=== PATIENT | female | born 1960 | race African-American/Black ===

== ENCOUNTER 2017-01-14 05:04 | Inpatient (IN) ==
[2017-01-13 12:00] LABS: INR 0.9; PT Patient Result 9.4 SECS; Partial Thromboplastin Time 25.2 SECS (0-40)
[2017-01-13 12:08] LABS: Apearance,Urine CLOUDY (Clear); Bacteria,Urine Few /HPF (Few); Bilirubin,Urine Negative (Negative); Blood, Urine Small mg/dL (Negative); Glucose,Urine (UA) >=500 mg/dL (Negative); Ketones,Urine Negative (Negative); Nitrite,Urine Negative (Negative); Protein,Urine 30 MG/DL; Squamous Epithelial Cell,Urine Occasional /HPF (0-10); Urine Color Yellow (Yellow); Urine Specific Gravity 1.017 (1.001-1.035); WBC,Urine 531 /HPF (0-6)
[~2017-01-14 05:04] MED LIST: CEFUROXIME INJ 1,500 MG in SYRINGE 1 EACH IV ONE; SODIUM CHLORIDE 0.9% 1,000 ML IV PRN
[2017-01-14] MEDS ORDERED: PAPAVERINE 60 MG/2 ML VIAL ONE (05:28)
[2017-01-14] MEDS ORDERED: TISSUE ADHESIVE 1 EACH APPLICATOR TOP ONE ×2 (05:28→09:59)
[2017-01-14] MEDS ORDERED: VANCOMYCIN 1,000 MG VIAL ONE (05:29)
[2017-01-14] MEDS ORDERED: TRANEXAMIC ACID 1,000 MG/10 ML VIAL IV ONE (06:11)
[2017-01-14] MEDS ORDERED: CEFUROXIME 1,500 MG VIAL ONE (06:40)
[2017-01-14 07:54] LABS: ABG HCO3 22.8 MMOL/L (20-26); ABG Oxygen Saturation 99.3 % (95-100); ABG PCO2 31.3 MM HG (35-48); ABG PO2 354.9 MM HG (80-95); ABG TCO2 23.7 MMOL/L (23-27); Glucose Heart Surgery 181 MG/DL (74-106); Hemoglobin Heart Surgery 12.2 G/DL (12.0-16.0); Ionized Calcium Arterial 1.18 MMOL/L (1.21-1.46); PCO2 Patient Temp Arterial 31.3 MMHG; PO2 Patient Temp Arterial 354.9 MM HG; Patient Temperature 37 CELCIUS; Potassium Heart/CVR 3.7 MMOL/L (3.5-5.1); Sodium Heart/CVR 138 MMOL/L (135-145)
[2017-01-14 08:21] LABS: Apearance,Urine CLOUDY (Clear); Bacteria,Urine Many /HPF (Few); Bilirubin,Urine Negative (Negative); Blood, Urine Small mg/dL (Negative); Glucose,Urine (UA) >=500 mg/dL (Negative); Ketones,Urine Negative (Negative); Nitrite,Urine Negative (Negative); Protein,Urine 100 MG/DL; RBC,Urine 10 /HPF (0-4); Urine Color Yellow (Yellow); Urine Specific Gravity 1.013 (1.001-1.035); WBC,Urine 1431 /HPF (0-6)
[2017-01-14 09:26] LABS: Hemoglobin Heart Surgery 6.8 G/DL (12.0-16.0); PCO2 Patient Temp Venous 30.1 MM HG; PH Patient Temp Venous 7.521; PO2 Patient Temp Venous 29.8 MM HG; Potassium Heart/CVR 4.6 MMOL/L (3.5-5.1); VBG Base Excess 1.1 MEQ/L (0-4); VBG HCO3 24.9 MEQ/L (24-28); VBG Oxygen Saturation 81.7 %; VBG PCO2 35.8 MMHG (41-51); VBG PH 7.461; VBG PO2 39.6 MMHG (17-40)
[2017-01-14] MEDS ORDERED: CALCIUM CHLORIDE 1,000 MG/10 ML VIAL IV ONE (09:31)
[2017-01-14] MEDS ORDERED: PHENYLEPHRINE DRIP 20 MG/250 ML PREMIX IV ONE ×2 (09:31→11:15)
[2017-01-14] MEDS ORDERED: VECURONIUM 10 MG VIAL IV ONE (09:31)
[2017-01-14] MEDS ORDERED: HEPARIN/NACL 0.9% 2 UNITS/ML 500 ML IV ONE (09:31)
[2017-01-14] MEDS ORDERED: NITROGLYCERIN DRIP 50 MG/250 ML BOTTLE IV ONE (09:32)
[2017-01-14] MEDS ORDERED: INSULIN REGULAR 100 UNIT/ML ONE (09:34)
[2017-01-14 09:48] LABS: Hematocrit Heart Surgery 20.1 PERCENT (37-47); PCO2 Patient Temp Venous 25.3 MM HG; PH Patient Temp Venous 7.552; Potassium Heart/CVR 3.7 MMOL/L (3.5-5.1); VBG Base Excess 0.6 MEQ/L (0-4); VBG HCO3 24.9 MEQ/L (24-28); VBG Oxygen Saturation 90.8 %; VBG PCO2 33.8 MMHG (41-51); VBG PH 7.462; VBG PO2 52.3 MMHG (17-40)
[2017-01-14 09:49] LABS: Hemoglobin Heart Surgery 6.4 G/DL (12.0-16.0)
[2017-01-14] MEDS ORDERED: ALBUMIN 5% 12.5 GM/250 ML VIAL IV ONE ×3 (10:11)
[2017-01-14] MEDS ORDERED: PHENYLEPHRINE DRIP 40 MG/250 ML PREMIX IV ONE (10:12)
[2017-01-14 10:24] LABS: Hemoglobin Heart Surgery 6.1 G/DL (12.0-16.0); PCO2 Patient Temp Venous 30.5 MM HG; PH Patient Temp Venous 7.517; PO2 Patient Temp Venous 30.6 MM HG; Potassium Heart/CVR 4.1 MMOL/L (3.5-5.1); VBG Base Excess 1.1 MEQ/L (0-4); VBG HCO3 25.1 MEQ/L (24-28); VBG Oxygen Saturation 83.7 %; VBG PCO2 36.3 MMHG (41-51); VBG PH 7.457; VBG PO2 40.6 MMHG (17-40)
[2017-01-14 10:44] LABS: Hemoglobin Heart Surgery 8.5 G/DL (12.0-16.0); PCO2 Patient Temp Venous 38.9 MM HG; PH Patient Temp Venous 7.438; PO2 Patient Temp Venous 34.8 MM HG; Potassium Heart/CVR 4.5 MMOL/L (3.5-5.1); VBG Base Excess 1.4 MEQ/L (0-4); VBG HCO3 25.9 MEQ/L (24-28); VBG Oxygen Saturation 78.2 %; VBG PCO2 40.6 MMHG (41-51); VBG PH 7.423; VBG PO2 37.4 MMHG (17-40)
[2017-01-14] MEDS ORDERED: DEXTROSE 5% KCL 20 MEQ 40 MEQ/2,000 ML BAG IV ONE (11:15)
[2017-01-14] MEDS ORDERED: ALBUMIN 25% 25 GM/100 ML VIAL IV ONE (11:16)
[2017-01-14] MEDS ORDERED: SODIUM BICARBONATE 50 MEQ/50 ML SYRINGE IV ONE (11:16)
[2017-01-14] MEDS ORDERED: MAGNESIUM SULFATE 1 GM/2 ML VIAL ONE (11:16)
[2017-01-14] MEDS ORDERED: HEPARIN 10,000 UNIT/10 ML VIAL ONE (11:16)
[2017-01-14] MEDS ORDERED: methylPREDNISolone SOD SUC 1,000 MG/8 ML VIAL ONE (11:16)
[2017-01-14] MEDS ORDERED: PROTAMINE SULFATE 250 MG/25 ML VIAL IV ONE (11:16)
[2017-01-14] MEDS ORDERED: FUROSEMIDE 20 MG/2 ML VIAL ONE (11:16)
[2017-01-14] MEDS ORDERED: MANNITOL 12.5 GM/50 ML VIAL IV ONE (11:16)
[2017-01-14] MEDS ORDERED: THROMBIN TOPICAL (RECOMBINANT) 5,000 UNIT VIAL TOP ONE (11:23)
[2017-01-14 11:27] LABS: ABG Base Excess -0.8 MMOL/L (-2.5-2.5); ABG HCO3 23.1 MMOL/L (20-26); ABG Oxygen Saturation 98.6 % (95-100); ABG PCO2 35.4 MM HG (35-48); ABG PH 7.433 (7.35-7.45); ABG PO2 259.2 MM HG (80-95); ABG TCO2 24.2 MMOL/L (23-27); Glucose Heart Surgery 265 MG/DL (74-106); Hemoglobin Heart Surgery 9.9 G/DL (12.0-16.0); Ionized Calcium Arterial 1.25 MMOL/L (1.21-1.46); PCO2 Patient Temp Arterial 35.4 MMHG; PH Patient Temp Arterial 7.433; PO2 Patient Temp Arterial 259.2 MM HG; Patient Temperature 37 CELCIUS; Potassium Heart/CVR 3.9 MMOL/L (3.5-5.1); Sodium Heart/CVR 130 MMOL/L (135-145)
[2017-01-14] MEDS ORDERED: MAGNESIUM SULF RIDER 4 GM in PREMIX 1 EACH IV PRN (12:19)
[2017-01-14] MEDS ORDERED: INSULIN REGULAR 100 UNIT/ML IV PRN (12:19)
[2017-01-14] MEDS ORDERED: ACETAMINOPHEN 650 MG SUPP RECTAL PRN (12:19)
[2017-01-14] MEDS ORDERED: MORPHINE 10 MG/1 ML VIAL IV PRN (12:19)
[2017-01-14] MEDS ORDERED: POTASSIUM CHLORIDE RIDER 20 MEQ in PREMIX 1 EACH IV PRN (12:19)
[2017-01-14] MEDS ORDERED: CHLORHEXIDINE 4% SOLN 118 ML BOTTLE TOP PRN (12:19)
[2017-01-14] MEDS ORDERED: DEXTROSE 50% 25 GM/50 ML VIAL IV PRN ×2 (12:19)
[2017-01-14] MEDS ORDERED: MIDAZOLAM 2 MG/2 ML VIAL IV PRN (12:19)
[2017-01-14] MEDS ORDERED: SODIUM CHLORIDE 0.9% 250 ML IV PRN (12:19)
[2017-01-14] MEDS ORDERED: POTASSIUM CHLORIDE RIDER 10 MEQ in PREMIX 1 EACH IV PRN (12:19)
[2017-01-14] MEDS ORDERED: CALCIUM CHLORIDE 1,000 MG/10 ML SYRINGE IV PRN (12:19)
[2017-01-14] MEDS ORDERED: ONDANSETRON 4 MG/2 ML VIAL IV PRN (12:19)
[2017-01-14] MEDS ORDERED: MAGNESIUM SULF RIDER 2 GM in PREMIX 1 EACH IV PRN (12:19)
[2017-01-14] MEDS ORDERED: SODIUM CHLORIDE 0.45% 1,000 ML IV SCH (12:30)
[2017-01-14] MEDS ORDERED: INSULIN REGULAR DRIP 100 ML IV SCH (12:30)
[2017-01-14] MEDS: ALBUMIN 5% 12.5 GM in PREMIX 1 EACH IV PRN ×5 (12:30→16:31)
[2017-01-14 13:09] LABS: ABG Base Excess 0.4 MMOL/L (-2.5-2.5); ABG HCO3 24.1 MMOL/L (20-26); ABG Oxygen Saturation 97.1 % (95-100); ABG PCO2 35.2 MM HG (35-48); ABG PH 7.453 (7.35-7.45); ABG PO2 97.1 MM HG (80-95); ABG TCO2 25.2 MMOL/L (23-27); Basophils % 0.4 % (0.0-0.8); Eosinophils % 0.2 % (0.00-10.9); Glucose Heart Surgery 182 MG/DL (74-106); Hematocrit 29.1 VOL% (35.7-47.0); Hemoglobin 10.1 GM/DL (12.0-16.0); Hemoglobin Heart Surgery 10.6 G/DL (12.0-16.0); Immature Granulocytes % 0.4 %; Immature Granulocytes Absolute 0.04 #; Lymphocytes % 9.8 % (21.3-54.2); Mean Corpuscular HGB Conc 34.7 GM/DL (32-36); Mean Corpuscular Hemoglobin 29 PG (27-34); Mean Platelet Volume 10.9 FL (9.6-12.0); Monocytes # 0.3 10*3/uL (0.11-0.8); Monocytes % 3.4 % (1.7-12.7); Neutrophils # 8.6 10*3/uL (1.4-7.4); Neutrophils % 85.8 % (38.7-73.9); Platelet Count 103 T/CUMM (130-400); Potassium Heart/CVR 3.6 MMOL/L (3.5-5.1); Red Blood Count 3.55 MC/CUMM (3.8-5.5); Red Cell Distribution Width 13.6 % (9.3-17.3)
[2017-01-14 13:17] LABS: INR 1.1; PT Patient Result 11.1 SECS
[2017-01-14] MEDS ORDERED: LACTATED RINGERS 1,000 ML IV ONE (13:22)
[2017-01-14] MEDS ORDERED: SODIUM CHLORIDE 0.9% 250 ML IV ONE (13:22)
[2017-01-14] MEDS ORDERED: SODIUM CHLORIDE 0.9% 100 ML IV ONE (13:22)
[2017-01-14] MEDS ORDERED: MIDAZOLAM 10 MG/2 ML VIAL ONE (13:22)
[2017-01-14] MEDS ORDERED: ETOMIDATE 20 MG/10 ML VIAL IV ONE (13:22)
[2017-01-14] MEDS ORDERED: SODIUM CHLORIDE 0.9% 1,000 ML IV ONE (13:22)
[2017-01-14] MEDS: SODIUM CHLORIDE 0.45% 1,000 ML IV SCH (13:29)
[2017-01-14 13:30] LABS: Lactic Acid 2.5 MMOL/L (0.4-2.0)
[2017-01-14 14:22] LABS: Calcium 8.1 MG/DL (8.5-10.1); Magnesium 2.5 MG/DL (1.8-2.4); Osmolality,Calculated 281.5 MOS/KG (273-304); Potassium 3.8 MMOL/L (3.5-5.1)
[2017-01-14] MEDS: MORPHINE 2 MG/1 ML SYRINGE IV PRN ×2 (15:32→19:24)
[2017-01-14 17:19] LABS: ABG Base Excess -0.8 MMOL/L (-2.5-2.5); ABG HCO3 25.1 MMOL/L (20-26); ABG Oxygen Saturation 98.3 % (95-100); ABG PH 7.336 (7.35-7.45); ABG PO2 173.8 MM HG (80-95); ABG TCO2 26.6 MMOL/L (23-27); Glucose Heart Surgery 80 MG/DL (74-106); Hemoglobin Heart Surgery 7.3 G/DL (12.0-16.0); Potassium Heart/CVR 4.4 MMOL/L (3.5-5.1)
[2017-01-14 17:53] LABS: Lymphocytes 7 % (20-55); Platelet Estimate Decreased; Polychromasia Few; Segmented Neutrophils 91 % (50-85); Total Cells Counted 100
[2017-01-14] MEDS: PHENYLEPHRINE DRIP 40 MG/250 ML PREMIX IV SCH (20:04)
[2017-01-14] MEDS ORDERED: DOBUTamine 500 MG/250 ML PREMIX IV ONE (20:25)
[2017-01-14] MEDS: DOBUTamine 500 MG/250 ML PREMIX IV SCH (20:34)
[2017-01-14 20:53] LABS: ABG Base Excess -2.9 MMOL/L (-2.5-2.5); ABG HCO3 20.3 MMOL/L (20-26); ABG Oxygen Saturation 98.7 % (95-100); ABG PCO2 30.7 MM HG (35-48); ABG PH 7.439 (7.35-7.45); ABG PO2 179.7 MM HG (80-95); ABG TCO2 21.3 MMOL/L (23-27); Glucose Heart Surgery 135 MG/DL (74-106); Hemoglobin Heart Surgery 11.8 G/DL (12.0-16.0); Potassium Heart/CVR 4.5 MMOL/L (3.5-5.1)
[2017-01-14] MEDS: CEFUROXIME INJ 1,500 MG in SYRINGE 1 EACH IV SCH (21:34)
[2017-01-14] MEDS: CHLORHEXIDINE 0.12% ORAL RINSE 60 ML BOTTLE SWISH/SPIT SCH (21:38)
[2017-01-15 00:07] LABS: ABG Base Excess -3.8 MMOL/L (-2.5-2.5); ABG HCO3 21.6 MMOL/L (20-26); ABG Oxygen Saturation 98.3 % (95-100); ABG PCO2 40.5 MM HG (35-48); ABG PH 7.345 (7.35-7.45); ABG TCO2 22.9 MMOL/L (23-27); Glucose Heart Surgery 146 MG/DL (74-106); Hemoglobin Heart Surgery 10.2 G/DL (12.0-16.0)
[2017-01-15] MEDS: SODIUM CHLORIDE 0.45% 1,000 ML IV SCH (01:37)
[2017-01-15 03:41] LABS: ABG Base Excess -2.1 MMOL/L (-2.5-2.5); ABG HCO3 23.6 MMOL/L (20-26); ABG Oxygen Saturation 98.3 % (95-100); ABG PH 7.338 (7.35-7.45); ABG PO2 165.9 MM HG (80-95); Glucose Heart Surgery 131 MG/DL (74-106); Hemoglobin Heart Surgery 7.5 G/DL (12.0-16.0)
[2017-01-15 03:54] LABS: Basophils % 0.1 % (0.0-0.8); Hematocrit 20.3 VOL% (35.7-47.0); Immature Granulocytes % 0.2 %; Immature Granulocytes Absolute 0.03 #; Lymphocytes % 7.7 % (21.3-54.2); Mean Corpuscular Hemoglobin 29 PG (27-34); Mean Corpuscular Volume 83.5 FL (87-102); Mean Platelet Volume 11.2 FL (9.6-12.0); Monocytes # 0.7 10*3/uL (0.11-0.8); Monocytes % 5.6 % (1.7-12.7); Neutrophils # 11.2 10*3/uL (1.4-7.4); Neutrophils % 86.4 % (38.7-73.9); Platelet Count 111 T/CUMM (130-400); Red Blood Count 2.43 MC/CUMM (3.8-5.5); Red Cell Distribution Width 14.1 % (9.3-17.3)
[2017-01-15 04:08] LABS: Calcium 7.5 MG/DL (8.5-10.1); Magnesium 2.1 MG/DL (1.8-2.4); Osmolality,Calculated 282.3 MOS/KG (273-304)
[2017-01-15 04:13] LABS: Hemoglobin 7.1 GM/DL (12.0-16.0)
[2017-01-15 05:13] LABS: Band Neutrophils 3 % (0-10); Hypochromasia 1+; Lymphocytes 3 % (20-55); Platelet Estimate Decreased; Segmented Neutrophils 90 % (50-85); Total Cells Counted 100
[2017-01-15 05:14] LABS: Giant Platelets Few; Ovalocytes Slight
[2017-01-15] MEDS ORDERED: KETOROLAC 30 MG/1 ML VIAL IV ONE (05:50)
[2017-01-15] MEDS ORDERED: CALCIUM GLUCONATE 1,000 MG in SODIUM CHLORIDE 0.9% 100 ML IV ONE (06:47)
[2017-01-15] MEDS: ASPIRIN EC 325 MG TABLET PO SCH (08:46)
[2017-01-15] MEDS: FUROSEMIDE 40 MG TABLET PO SCH (08:46)
[2017-01-15] MEDS: CHLORHEXIDINE 0.12% ORAL RINSE 60 ML BOTTLE SWISH/SPIT SCH ×2 (08:46→21:26)
[2017-01-15] MEDS: INSULIN REGULAR 100 UNIT/ML SUBCUT SCH ×5 (08:58→21:47)
[2017-01-15] MEDS: CEFUROXIME INJ 1,500 MG in SYRINGE 1 EACH IV SCH ×2 (09:02→21:25)
[2017-01-15] MEDS: ESCITALOPRAM 10 MG TABLET PO SCH (12:20)
[2017-01-15] MEDS ORDERED: INSULIN REGULAR 100 UNIT/ML SUBCUT SCH (12:55)
[2017-01-15] MEDS ORDERED: GLUCAGON 1 MG VIAL IM PRN ×2 (12:57→13:00)
[2017-01-15] MEDS ORDERED: INSULIN REGULAR 100 UNIT/ML IV PRN (12:58)
[2017-01-15] MEDS ORDERED: DEXTROSE 50% 25 GM/50 ML VIAL IV PRN (13:00)
[2017-01-15] MEDS: KETOROLAC 15 MG/1 ML VIAL IV PRN (15:00)
[2017-01-15 16:51] LABS: Hematocrit 28.4 VOL% (35.7-47.0); Hemoglobin 9.9 GM/DL (12.0-16.0)
[2017-01-15] MEDS: LEVOFLOXACIN INJ 750 MG in PREMIX 1 EACH IV SCH (16:59)
[2017-01-15] MEDS: PHENYLEPHRINE DRIP 40 MG/250 ML PREMIX IV SCH (18:13)
[2017-01-15] MEDS: OLANZapine 5 MG TABLET PO SCH (21:26)
[2017-01-15] MEDS: ATORVASTATIN 40 MG TABLET PO SCH (21:26)
[2017-01-15] MEDS: AMITRIPTYLINE 50 MG TABLET PO SCH (21:26)
[2017-01-15] MEDS: DOBUTamine 500 MG/250 ML PREMIX IV SCH (21:40)
[2017-01-16] MEDS: INSULIN REGULAR 100 UNIT/ML SUBCUT SCH ×6 (01:03→21:59)
[2017-01-16 04:41] LABS: Basophils % 0.2 % (0.0-0.8); Eosinophils % 0.1 % (0.00-10.9); Hematocrit 26.6 VOL% (35.7-47.0); Hemoglobin 9.2 GM/DL (12.0-16.0); Immature Granulocytes % 0.5 %; Immature Granulocytes Absolute 0.05 #; Lymphocytes # 2.5 10*3/uL (1.4-4.0); Lymphocytes % 22.4 % (21.3-54.2); Mean Corpuscular HGB Conc 34.6 GM/DL (32-36); Mean Corpuscular Hemoglobin 29 PG (27-34); Mean Corpuscular Volume 84.7 FL (87-102); Mean Platelet Volume 12.3 FL (9.6-12.0); Monocytes # 0.8 10*3/uL (0.11-0.8); Monocytes % 7.4 % (1.7-12.7); Neutrophils # 7.7 10*3/uL (1.4-7.4); Neutrophils % 69.4 % (38.7-73.9); Red Blood Count 3.14 MC/CUMM (3.8-5.5); Red Cell Distribution Width 14.6 % (9.3-17.3); White Blood Count 11.1 T/CUMM (4-12)
[2017-01-16 05:09] LABS: Platelet Count 96 T/CUMM (130-400)
[2017-01-16 05:29] LABS: Giant Platelets Few; Hypochromasia 1+; Ovalocytes Slight; Platelet Estimate Decreased
[2017-01-16 05:43] LABS: Calcium 7.7 MG/DL (8.5-10.1); Magnesium 1.9 MG/DL (1.8-2.4); Osmolality,Calculated 284.8 MOS/KG (273-304)
[2017-01-16] MEDS ORDERED: PNEUMOCOCCAL VACCINE (23 VALENT) 0.5 ML VIAL IM ONE (09:00)
[2017-01-16] MEDS: OLANZapine 5 MG TABLET PO SCH (09:36)
[2017-01-16] MEDS: ESCITALOPRAM 10 MG TABLET PO SCH (09:36)
[2017-01-16] MEDS: ASPIRIN EC 325 MG TABLET PO SCH (09:36)
[2017-01-16] MEDS: FUROSEMIDE 40 MG TABLET PO SCH (09:36)
[2017-01-16] MEDS: CHLORHEXIDINE 0.12% ORAL RINSE 60 ML BOTTLE SWISH/SPIT SCH ×2 (09:37→21:58)
[2017-01-16] MEDS ORDERED: ALBUTEROL/IPRATROPIUM 3 ML NEB RESP TX PRN (14:39)
[2017-01-16] MEDS: KETOROLAC 15 MG/1 ML VIAL IV PRN (15:02)
[2017-01-16] MEDS: LEVOFLOXACIN INJ 750 MG in PREMIX 1 EACH IV SCH (17:19)
[2017-01-16] MEDS ORDERED: AMITRIPTYLINE 50 MG TABLET PO SCH (21:00)
[2017-01-16] MEDS: ATORVASTATIN 40 MG TABLET PO SCH (21:59)
[2017-01-16] MEDS: CARVEDILOL 3.125 MG TABLET PO SCH (21:59)
[2017-01-16] MEDS: AMITRIPTYLINE 50 MG TABLET PO SCH (21:59)
[2017-01-16] MEDS: GLIMEPIRIDE 2 MG TABLET PO SCH (21:59)
[2017-01-16] MEDS: INSULIN ASPART PROTAMINE/ASPART 70/30 100 UNIT/ML SUBCUT SCH (22:00)
[2017-01-17] MEDS: INSULIN REGULAR 100 UNIT/ML SUBCUT SCH ×7 (00:20→23:54)
[2017-01-17 05:42] LABS: Basophils # 0.1 10*3/uL (0.0-0.2); Basophils % 0.5 % (0.0-0.8); Eosinophils # 0.1 10*3/uL (0.0-0.87); Eosinophils % 0.5 % (0.00-10.9); Hematocrit 28.4 VOL% (35.7-47.0); Hemoglobin 9.5 GM/DL (12.0-16.0); Immature Granulocytes % 0.5 %; Immature Granulocytes Absolute 0.05 #; Lymphocytes # 2.1 10*3/uL (1.4-4.0); Lymphocytes % 18.7 % (21.3-54.2); Mean Corpuscular HGB Conc 33.5 GM/DL (32-36); Mean Corpuscular Hemoglobin 29 PG (27-34); Mean Corpuscular Volume 86.9 FL (87-102); Mean Platelet Volume 11.4 FL (9.6-12.0); Monocytes # 0.9 10*3/uL (0.11-0.8); Monocytes % 8.3 % (1.7-12.7); Neutrophils # 7.9 10*3/uL (1.4-7.4); Neutrophils % 71.5 % (38.7-73.9); Platelet Count 122 T/CUMM (130-400); Red Blood Count 3.27 MC/CUMM (3.8-5.5); Red Cell Distribution Width 14.2 % (9.3-17.3)
[2017-01-17 06:12] LABS: Calcium 8.4 MG/DL (8.5-10.1); Magnesium 1.8 MG/DL (1.8-2.4); Osmolality,Calculated 286.7 MOS/KG (273-304); Potassium 3.9 MMOL/L (3.5-5.1)
[2017-01-17] MEDS: GLIMEPIRIDE 2 MG TABLET PO SCH ×2 (08:49→22:05)
[2017-01-17] MEDS ORDERED: Insulin Degludec [Tresiba Flextouch U-100] 20 UNIT SQ SCH (09:00)
[2017-01-17] MEDS: OLANZapine 5 MG TABLET PO SCH (09:48)
[2017-01-17] MEDS: FUROSEMIDE 40 MG TABLET PO SCH (09:48)
[2017-01-17] MEDS: ESCITALOPRAM 10 MG TABLET PO SCH (09:48)
[2017-01-17] MEDS: CARVEDILOL 3.125 MG TABLET PO SCH (09:48)
[2017-01-17] MEDS: ASPIRIN EC 325 MG TABLET PO SCH (09:48)
[2017-01-17] MEDS: CHLORHEXIDINE 0.12% ORAL RINSE 60 ML BOTTLE SWISH/SPIT SCH ×2 (09:49→22:05)
[2017-01-17] MEDS: CARVEDILOL 6.25 MG TABLET PO SCH ×2 (12:10→22:05)
[2017-01-17] MEDS ORDERED: FUROSEMIDE 40 MG/4 ML VIAL IV ONE (15:06)
[2017-01-17] MEDS: LEVOFLOXACIN INJ 750 MG in PREMIX 1 EACH IV SCH (16:17)
[2017-01-17] MEDS: INSULIN ASPART PROTAMINE/ASPART 70/30 100 UNIT/ML SUBCUT SCH (22:03)
[2017-01-17] MEDS: AMITRIPTYLINE 50 MG TABLET PO SCH (22:04)
[2017-01-17] MEDS: ATORVASTATIN 40 MG TABLET PO SCH (22:05)
[2017-01-18] MEDS: INSULIN REGULAR 100 UNIT/ML SUBCUT SCH ×4 (04:20→17:41)
[2017-01-18 05:50] LABS: Basophils # 0.1 10*3/uL (0.0-0.2); Basophils % 0.6 % (0.0-0.8); Eosinophils # 0.1 10*3/uL (0.0-0.87); Eosinophils % 0.4 % (0.00-10.9); Hematocrit 28.8 VOL% (35.7-47.0); Hemoglobin 9.6 GM/DL (12.0-16.0); Immature Granulocytes % 0.5 %; Immature Granulocytes Absolute 0.06 #; Lymphocytes # 1.8 10*3/uL (1.4-4.0); Lymphocytes % 14.2 % (21.3-54.2); Mean Corpuscular HGB Conc 33.3 GM/DL (32-36); Mean Corpuscular Hemoglobin 29 PG (27-34); Mean Corpuscular Volume 87.8 FL (87-102); Mean Platelet Volume 11.8 FL (9.6-12.0); Monocytes % 8.2 % (1.7-12.7); Neutrophils # 9.5 10*3/uL (1.4-7.4); Neutrophils % 76.1 % (38.7-73.9); Platelet Count 148 T/CUMM (130-400); Red Blood Count 3.28 MC/CUMM (3.8-5.5); White Blood Count 12.5 T/CUMM (4-12)
[2017-01-18 06:20] LABS: Calcium 8.5 MG/DL (8.5-10.1); Osmolality,Calculated 282.1 MOS/KG (273-304); Potassium 3.4 MMOL/L (3.5-5.1)
[2017-01-18 07:48] LABS: Lymphocytes 17 % (20-55); Segmented Neutrophils 83 % (50-85); Total Cells Counted 100
[2017-01-18 07:49] LABS: Platelet Estimate Normal
[2017-01-18] MEDS: OLANZapine 5 MG TABLET PO SCH (09:16)
[2017-01-18] MEDS: ESCITALOPRAM 10 MG TABLET PO SCH (09:16)
[2017-01-18] MEDS: ASPIRIN EC 325 MG TABLET PO SCH (09:16)
[2017-01-18] MEDS: CHLORHEXIDINE 0.12% ORAL RINSE 60 ML BOTTLE SWISH/SPIT SCH (09:16)
[2017-01-18] MEDS: GLIMEPIRIDE 2 MG TABLET PO SCH (09:16)
[2017-01-18] MEDS: FUROSEMIDE 40 MG TABLET PO SCH (09:16)
[2017-01-18] MEDS: CARVEDILOL 6.25 MG TABLET PO SCH (09:16)
[2017-01-18] MEDS ORDERED: POTASSIUM CHLORIDE 20 MEQ TABLET PO ONE (11:24)
[2017-01-18 12:13] VITALS: BP 99/58
[2017-01-18] MEDS: LEVOFLOXACIN INJ 750 MG in PREMIX 1 EACH IV SCH (17:41)
== END 2017-01-18 17:30 | disposition home health service (06) | DRG 236 ==
LOC: N.SDSINP 05:04 → N.CVR 08:11 → N.ICU 01-15 12:03 → N.TELES 01-16 13:01
PROVIDERS: ADMIT Thoracic Surgery (Cardiothoracic Vascular Surgery); ATTEND Thoracic Surgery (Cardiothoracic Vascular Surgery)

== ENCOUNTER 2017-02-26 14:00 | Inpatient (IN) ==
[2017-02-26] MEDS ORDERED: ONDANSETRON 4 MG/2 ML VIAL IV PRN (22:20)
[2017-02-26] MEDS ORDERED: ACETAMINOPHEN 325 MG TABLET PO PRN (22:20)
[2017-02-26] MEDS ORDERED: DEXTROSE 50% 25 GM/50 ML VIAL IV PRN ×2 (22:20)
[2017-02-26] MEDS ORDERED: GLUCAGON 1 MG VIAL IM PRN ×2 (22:20)
[2017-02-26] MEDS ORDERED: MAGNESIUM HYDROXIDE SUSP 30 ML UDCUP PO PRN (22:20)
[2017-02-27] MEDS ORDERED: DOCUSATE SODIUM 100 MG CAPSULE PO SCH (09:00)
[2017-02-27] MEDS ORDERED: IPRATROPIUM 500 MCG/2.5 ML NEB RESP TX SCH (09:00)
[2017-02-27] MEDS: CLINDAMYCIN INJ 600 MG in PREMIX 1 EACH IV SCH ×3 (13:18→22:20)
[2017-02-27] MEDS: SODIUM CHLORIDE 0.45% 1,000 ML IV SCH ×3 (13:36→22:22)
[2017-02-27] MEDS: INSULIN GLARGINE 100 UNIT/ML SUBCUT SCH (13:46)
[2017-02-27] MEDS: FAMOTIDINE 20 MG TABLET PO SCH ×2 (13:47→21:07)
[2017-02-27] MEDS: CARVEDILOL 3.125 MG TABLET PO SCH ×2 (13:48→16:56)
[2017-02-27] MEDS: INSULIN REGULAR 100 UNIT/ML SUBCUT SCH ×3 (13:49→21:08)
[2017-02-27] MEDS: OLANZapine 5 MG TABLET PO SCH (17:49)
[2017-02-27] MEDS ORDERED: SKIN HEALING OINT (AQUAPHOR) 50 GM TUBE TOP PRN (18:12)
[2017-02-27] MEDS ORDERED: CHLORHEXIDINE 4% SOLN 118 ML BOTTLE TOP ONE (18:12)
[2017-02-27] MEDS: IPRATROPIUM 500 MCG/2.5 ML NEB RESP TX SCH (19:11)
[2017-02-27] MEDS: CILOSTAZOL 50 MG TABLET PO SCH (21:07)
[2017-02-27] MEDS: DOCUSATE SODIUM 100 MG CAPSULE PO SCH (21:07)
[2017-02-27] MEDS: ENOXAPARIN 40 MG/0.4 ML SYRINGE SUBCUT SCH (21:07)
[2017-02-28] MEDS ORDERED: BACITRACIN OINT 0.9 GM PACK TOP ONE (02:00)
[2017-02-28] MEDS: CLINDAMYCIN INJ 600 MG in PREMIX 1 EACH IV SCH ×3 (05:26→22:09)
[2017-02-28 06:38] LABS: Apearance,Urine CLOUDY (Clear); Bilirubin,Urine Negative (Negative); Blood, Urine Small mg/dL (Negative); Glucose,Urine (UA) 50 mg/dL (Negative); Ketones,Urine Negative (Negative); Nitrite,Urine Negative (Negative); Protein,Urine Negative; RBC,Urine 5 /HPF (0-4); Squamous Epithelial Cell,Urine Occasional /HPF (0-10); Urine Color Yellow (Yellow); Urine Specific Gravity 1.008 (1.001-1.035); Urine Urobilinogen < 2.0 EU/DL (0.2-1.0); WBC,Urine 216 /HPF (0-6)
[2017-02-28] MEDS: IPRATROPIUM 500 MCG/2.5 ML NEB RESP TX SCH ×3 (07:45→19:55)
[2017-02-28 08:35] LABS: Basophils % 0.7 % (0.0-0.8); Eosinophils # 0.1 10*3/uL (0.0-0.87); Eosinophils % 1.5 % (0.00-10.9); Hematocrit 33.8 VOL% (35.7-47.0); Hemoglobin 10.4 GM/DL (12.0-16.0); Immature Granulocytes % 0.3 %; Immature Granulocytes Absolute 0.02 #; Lymphocytes % 34.1 % (21.3-54.2); Mean Corpuscular HGB Conc 30.8 GM/DL (32-36); Mean Corpuscular Hemoglobin 28 PG (27-34); Mean Corpuscular Volume 89.7 FL (87-102); Mean Platelet Volume 11.8 FL (9.6-12.0); Monocytes # 0.5 10*3/uL (0.11-0.8); Monocytes % 8.9 % (1.7-12.7); Neutrophils # 3.2 10*3/uL (1.4-7.4); Neutrophils % 54.5 % (38.7-73.9); Platelet Count 188 T/CUMM (130-400); Red Blood Count 3.77 MC/CUMM (3.8-5.5); Red Cell Distribution Width 15.3 % (9.3-17.3); White Blood Count 5.9 T/CUMM (4-12)
[2017-02-28] MEDS: FAMOTIDINE 20 MG TABLET PO SCH ×2 (08:40→22:04)
[2017-02-28] MEDS: CARVEDILOL 3.125 MG TABLET PO SCH ×2 (08:40→18:12)
[2017-02-28] MEDS: DOCUSATE SODIUM 100 MG CAPSULE PO SCH ×2 (08:40→22:04)
[2017-02-28] MEDS: CILOSTAZOL 50 MG TABLET PO SCH ×2 (08:40→22:04)
[2017-02-28] MEDS: INSULIN GLARGINE 100 UNIT/ML SUBCUT SCH (08:41)
[2017-02-28] MEDS: BACITRACIN OINT 0.9 GM PACK TOP SCH (08:41)
[2017-02-28] MEDS: INSULIN REGULAR 100 UNIT/ML SUBCUT SCH ×4 (08:41→22:07)
[2017-02-28] MEDS: SODIUM CHLORIDE 0.45% 1,000 ML IV SCH ×2 (08:44→19:30)
[2017-02-28 09:37] LABS: Alanine Aminotransferase 45 U/L (13-56); Albumin 2.7 G/DL (3.4-5.0); Alkaline Phosphatase 192 U/L (45-117); Aspartate Amino Transferase 29 U/L (0-37); Bilirubin,Total < 0.39 MG/DL (0.2-1.0); Blood Urea Nitrogen 29 MG/DL (7-18); Calcium 8.5 MG/DL (8.5-10.1); Glucose 160 MG/DL (74-106); Potassium 3.8 MMOL/L (3.5-5.1); Sodium 143 MMOL/L (136-145); Total Protein 6.2 G/DL (6.4-8.3)
[2017-02-28] MEDS: OLANZapine 5 MG TABLET PO SCH (18:11)
[2017-02-28] MEDS: ENOXAPARIN 40 MG/0.4 ML SYRINGE SUBCUT SCH (22:07)
[2017-03-01] MEDS: SODIUM CHLORIDE 0.45% 1,000 ML IV SCH ×2 (06:03→17:00)
[2017-03-01] MEDS: CLINDAMYCIN INJ 600 MG in PREMIX 1 EACH IV SCH ×3 (06:04→21:56)
[2017-03-01] MEDS: IPRATROPIUM 500 MCG/2.5 ML NEB RESP TX SCH ×3 (07:28→20:45)
[2017-03-01] MEDS: INSULIN REGULAR 100 UNIT/ML SUBCUT SCH ×4 (08:40→22:01)
[2017-03-01] MEDS: INSULIN GLARGINE 100 UNIT/ML SUBCUT SCH (08:40)
[2017-03-01] MEDS: CILOSTAZOL 50 MG TABLET PO SCH ×2 (08:41→21:54)
[2017-03-01] MEDS: FAMOTIDINE 20 MG TABLET PO SCH ×2 (08:41→21:55)
[2017-03-01] MEDS: CARVEDILOL 3.125 MG TABLET PO SCH ×2 (08:41→17:01)
[2017-03-01] MEDS: FERROUS SULFATE 325 MG TABLET PO SCH (08:41)
[2017-03-01] MEDS: BACITRACIN OINT 0.9 GM PACK TOP SCH (08:41)
[2017-03-01] MEDS: DOCUSATE SODIUM 100 MG CAPSULE PO SCH ×2 (08:41→21:55)
[2017-03-01] MEDS: OLANZapine 5 MG TABLET PO SCH (17:01)
[2017-03-01] MEDS: ENOXAPARIN 40 MG/0.4 ML SYRINGE SUBCUT SCH (22:00)
[2017-03-02 03:05] LABS: Basophils % 0.7 % (0.0-0.8); Eosinophils # 0.1 10*3/uL (0.0-0.87); Eosinophils % 2.2 % (0.00-10.9); Hematocrit 33.3 VOL% (35.7-47.0); Hemoglobin 10.5 GM/DL (12.0-16.0); Immature Granulocytes % 0.2 %; Immature Granulocytes Absolute 0.01 #; Lymphocytes # 1.2 10*3/uL (1.4-4.0); Lymphocytes % 30.9 % (21.3-54.2); Mean Corpuscular HGB Conc 31.5 GM/DL (32-36); Mean Corpuscular Hemoglobin 28 PG (27-34); Mean Corpuscular Volume 88.1 FL (87-102); Mean Platelet Volume 10.5 FL (9.6-12.0); Monocytes # 0.6 10*3/uL (0.11-0.8); Monocytes % 13.7 % (1.7-12.7); Neutrophils # 2.1 10*3/uL (1.4-7.4); Neutrophils % 52.3 % (38.7-73.9); Platelet Count 204 T/CUMM (130-400); Red Blood Count 3.78 MC/CUMM (3.8-5.5); Red Cell Distribution Width 15.3 % (9.3-17.3)
[2017-03-02 03:28] LABS: Calcium 8.7 MG/DL (8.5-10.1); Magnesium 1.8 MG/DL (1.8-2.4); Osmolality,Calculated 300.6 MOS/KG (273-304); Potassium 4.3 MMOL/L (3.5-5.1)
[2017-03-02] MEDS: SODIUM CHLORIDE 0.45% 1,000 ML IV SCH ×2 (03:32→16:53)
[2017-03-02] MEDS ORDERED: ALBUTEROL/IPRATROPIUM 3 ML NEB RESP TX PRN (05:00)
[2017-03-02] MEDS: CLINDAMYCIN INJ 600 MG in PREMIX 1 EACH IV SCH ×3 (07:05→21:39)
[2017-03-02] MEDS: IPRATROPIUM 500 MCG/2.5 ML NEB RESP TX SCH ×3 (07:20→19:03)
[2017-03-02] MEDS: INSULIN REGULAR 100 UNIT/ML SUBCUT SCH ×4 (09:45→21:39)
[2017-03-02] MEDS: INSULIN GLARGINE 100 UNIT/ML SUBCUT SCH (09:46)
[2017-03-02] MEDS: CILOSTAZOL 50 MG TABLET PO SCH ×2 (09:48→21:38)
[2017-03-02] MEDS: FAMOTIDINE 20 MG TABLET PO SCH ×2 (09:48→21:38)
[2017-03-02] MEDS: DOCUSATE SODIUM 100 MG CAPSULE PO SCH ×2 (09:48→21:38)
[2017-03-02] MEDS: BACITRACIN OINT 0.9 GM PACK TOP SCH (09:48)
[2017-03-02] MEDS: CARVEDILOL 3.125 MG TABLET PO SCH ×2 (09:48→16:54)
[2017-03-02] MEDS: FERROUS SULFATE 325 MG TABLET PO SCH (09:48)
[2017-03-02] MEDS: OLANZapine 5 MG TABLET PO SCH (17:12)
[2017-03-02] MEDS: ENOXAPARIN 40 MG/0.4 ML SYRINGE SUBCUT SCH (21:38)
[2017-03-03] MEDS: SODIUM CHLORIDE 0.45% 1,000 ML IV SCH ×2 (03:00→14:43)
[2017-03-03] MEDS: CLINDAMYCIN INJ 600 MG in PREMIX 1 EACH IV SCH ×3 (06:34→21:58)
[2017-03-03] MEDS: IPRATROPIUM 500 MCG/2.5 ML NEB RESP TX SCH ×3 (07:04→20:14)
[2017-03-03] MEDS: FAMOTIDINE 20 MG TABLET PO SCH ×2 (09:18→21:49)
[2017-03-03] MEDS: CARVEDILOL 3.125 MG TABLET PO SCH ×2 (09:18→16:23)
[2017-03-03] MEDS: BACITRACIN OINT 0.9 GM PACK TOP SCH (09:18)
[2017-03-03] MEDS: FERROUS SULFATE 325 MG TABLET PO SCH (09:18)
[2017-03-03] MEDS: CILOSTAZOL 50 MG TABLET PO SCH ×2 (09:18→21:48)
[2017-03-03] MEDS: DOCUSATE SODIUM 100 MG CAPSULE PO SCH ×2 (09:18→21:48)
[2017-03-03] MEDS: INSULIN REGULAR 100 UNIT/ML SUBCUT SCH ×4 (09:19→23:34)
[2017-03-03] MEDS: INSULIN GLARGINE 100 UNIT/ML SUBCUT SCH (09:19)
[2017-03-03] MEDS ORDERED: traZODone 50 MG TABLET PO PRN (13:23)
[2017-03-03] MEDS: OLANZapine 5 MG TABLET PO SCH (17:07)
[2017-03-03] MEDS: ENOXAPARIN 40 MG/0.4 ML SYRINGE SUBCUT SCH (21:49)
[2017-03-04] MEDS: SODIUM CHLORIDE 0.45% 1,000 ML IV SCH ×2 (00:32→10:59)
[2017-03-04] MEDS: CLINDAMYCIN INJ 600 MG in PREMIX 1 EACH IV SCH ×2 (05:32→14:42)
[2017-03-04] MEDS: IPRATROPIUM 500 MCG/2.5 ML NEB RESP TX SCH ×2 (07:10→14:03)
[2017-03-04 07:11] LABS: Basophils % 0.8 % (0.0-0.8); Eosinophils # 0.1 10*3/uL (0.0-0.87); Eosinophils % 2.5 % (0.00-10.9); Hematocrit 33.4 VOL% (35.7-47.0); Hemoglobin 10.1 GM/DL (12.0-16.0); Immature Granulocytes % 0.4 %; Immature Granulocytes Absolute 0.02 #; Lymphocytes # 1.5 10*3/uL (1.4-4.0); Lymphocytes % 31.1 % (21.3-54.2); Mean Corpuscular HGB Conc 30.2 GM/DL (32-36); Mean Corpuscular Hemoglobin 27 PG (27-34); Mean Corpuscular Volume 90.3 FL (87-102); Monocytes # 0.6 10*3/uL (0.11-0.8); Monocytes % 13.3 % (1.7-12.7); Neutrophils # 2.5 10*3/uL (1.4-7.4); Neutrophils % 51.9 % (38.7-73.9); Platelet Count 201 T/CUMM (130-400); Red Cell Distribution Width 15.2 % (9.3-17.3); White Blood Count 4.7 T/CUMM (4-12)
[2017-03-04 07:32] LABS: Albumin 2.7 G/DL (3.4-5.0); Bilirubin,Total 0.9 MG/DL (0.2-1.0); Calcium 8.7 MG/DL (8.5-10.1); Osmolality,Calculated 292.7 MOS/KG (273-304); Potassium 4.3 MMOL/L (3.5-5.1); Total Protein 6.1 G/DL (6.4-8.3)
[2017-03-04] MEDS: INSULIN REGULAR 100 UNIT/ML SUBCUT SCH ×3 (09:44→17:09)
[2017-03-04] MEDS: CILOSTAZOL 50 MG TABLET PO SCH (09:45)
[2017-03-04] MEDS: CARVEDILOL 3.125 MG TABLET PO SCH ×2 (09:45→17:09)
[2017-03-04] MEDS: FAMOTIDINE 20 MG TABLET PO SCH (09:45)
[2017-03-04] MEDS: FERROUS SULFATE 325 MG TABLET PO SCH (09:45)
[2017-03-04] MEDS: INSULIN GLARGINE 100 UNIT/ML SUBCUT SCH (09:46)
[2017-03-04] MEDS: DOCUSATE SODIUM 100 MG CAPSULE PO SCH (09:46)
[2017-03-04] MEDS: BACITRACIN OINT 0.9 GM PACK TOP SCH (09:46)
[2017-03-04] MEDS: OLANZapine 5 MG TABLET PO SCH (17:09)
[2017-03-04 20:14] VITALS: BP 142/72
== END 2017-03-04 20:57 | disposition home health service (06) | DRG 920 ==
LOC: N.2E 02-27 12:34
PROVIDERS: ADMIT Internal Medicine; ATTEND Internal Medicine

== ENCOUNTER 2017-07-07 16:19 | Inpatient (IN) ==
[2017-07-07] MEDS ORDERED: SODIUM CHLORIDE 0.9% 1,000 ML IV STA (18:15)
[2017-07-07 18:53] LABS: Basophils # 0.1 10*3/uL (0.0-0.2); Basophils % 0.3 % (0.0-0.8); Hematocrit 33.1 VOL% (35.7-47.0); Hemoglobin 10.9 GM/DL (12.0-16.0); Immature Granulocytes % 0.8 %; Immature Granulocytes Absolute 0.18 #; Lymphocytes # 0.9 10*3/uL (1.4-4.0); Lymphocytes % 3.9 % (21.3-54.2); Mean Corpuscular HGB Conc 32.9 GM/DL (32-36); Mean Corpuscular Hemoglobin 26 PG (27-34); Mean Platelet Volume 11.7 FL (9.6-12.0); Monocytes # 1.9 10*3/uL (0.11-0.8); Neutrophils # 20.5 10*3/uL (1.4-7.4); Platelet Count 229 T/CUMM (130-400); Red Blood Count 4.19 MC/CUMM (3.8-5.5); Red Cell Distribution Width 14.2 % (9.3-17.3); White Blood Count 23.6 T/CUMM (4-12)
[2017-07-07 19:23] LABS: Calcium 8.7 MG/DL (8.5-10.1); Osmolality,Calculated 301.2 MOS/KG (273-304); Potassium 4.7 MMOL/L (3.5-5.1); Total Protein 7.7 G/DL (6.4-8.3)
[2017-07-07 20:15] LABS: Band Neutrophils 1 % (0-10); Lymphocytes 4 % (20-55); Segmented Neutrophils 89 % (50-85); Total Cells Counted 100
[2017-07-07 20:16] LABS: Platelet Estimate Normal
[2017-07-07] MEDS ORDERED: ACETAMINOPHEN 325 MG TABLET PO PRN (20:46)
[2017-07-07] MEDS ORDERED: DEXTROSE 50% 25 GM/50 ML VIAL IV PRN (20:46)
[2017-07-07] MEDS ORDERED: ONDANSETRON 4 MG/2 ML VIAL IV PRN (20:46)
[2017-07-07] MEDS ORDERED: GLUCAGON 1 MG VIAL IM PRN (20:46)
[2017-07-07] MEDS ORDERED: ALBUTEROL 2.5 MG/3 ML NEB RESP TX PRN (20:50)
[2017-07-07] MEDS ORDERED: LEVOFLOXACIN INJ 750 MG in PREMIX 1 EACH IV SCH (21:00)
[2017-07-07] MEDS: cefTRIAXone 1,000 MG in SYRINGE 1 EACH IV SCH (23:40)
[2017-07-07] MEDS: SODIUM CHLORIDE 0.45% 1,000 ML IV SCH (23:40)
[2017-07-07] MEDS: INSULIN REGULAR 100 UNIT/ML SUBCUT SCH (23:43)
[2017-07-07] MEDS: guaiFENesin/DM ER 600-30 MG TABLET PO SCH (23:43)
[2017-07-07] MEDS: DOCUSATE SODIUM 100 MG CAPSULE PO SCH (23:43)
[2017-07-07] MEDS: AZITHROMYCIN INJ 500 MG in SODIUM CHLORIDE 0.9% 250 ML IV SCH (23:45)
[2017-07-08] MEDS: INSULIN REGULAR 100 UNIT/ML SUBCUT SCH ×4 (08:45→21:42)
[2017-07-08] MEDS: guaiFENesin/DM ER 600-30 MG TABLET PO SCH ×2 (08:48→22:22)
[2017-07-08] MEDS: SODIUM CHLORIDE 0.45% 1,000 ML IV SCH ×2 (08:48→17:11)
[2017-07-08] MEDS: PANTOPRAZOLE 40 MG TABLET PO SCH (08:48)
[2017-07-08] MEDS: DOCUSATE SODIUM 100 MG CAPSULE PO SCH (08:49)
[2017-07-08] MEDS: ONDANSETRON 4 MG/2 ML VIAL IV PRN ×2 (12:36)
[2017-07-08] MEDS ORDERED: ACETAMINOPHEN 325 MG TABLET PO PRN (14:39)
[2017-07-08] MEDS ORDERED: traZODone 50 MG TABLET PO PRN (14:39)
[2017-07-08] MEDS ORDERED: hydrOXYzine HCL 25 MG TABLET PO PRN (14:39)
[2017-07-08] MEDS ORDERED: IPRATROPIUM 500 MCG/2.5 ML NEB RESP TX SCH (15:00)
[2017-07-08] MEDS: GLIMEPIRIDE 2 MG TABLET PO SCH (17:09)
[2017-07-08] MEDS: ASPIRIN EC 325 MG TABLET PO SCH (17:10)
[2017-07-08] MEDS: BISACODYL 5 MG TABLET PO SCH (17:10)
[2017-07-08] MEDS: CARVEDILOL 3.125 MG TABLET PO SCH (17:10)
[2017-07-08] MEDS: metroNIDAZOLE INJ 250 MG in IV BAG 1 EACH IV SCH (19:55)
[2017-07-08] MEDS: ALBUTEROL/IPRATROPIUM 3 ML NEB RESP TX SCH (20:13)
[2017-07-08] MEDS ORDERED: EZETIMIBE 10 MG TABLET PO SCH (21:00)
[2017-07-08] MEDS: methylPREDNISolone SOD SUC 40 MG/1 ML VIAL IV SCH (21:10)
[2017-07-08] MEDS: cefTRIAXone 1,000 MG in SYRINGE 1 EACH IV SCH (22:14)
[2017-07-08] MEDS: AZITHROMYCIN INJ 500 MG in SODIUM CHLORIDE 0.9% 250 ML IV SCH (22:18)
[2017-07-08] MEDS: ATORVASTATIN 40 MG TABLET PO SCH (22:22)
[2017-07-08] MEDS: OLANZapine 5 MG TABLET PO SCH (22:23)
[2017-07-08] MEDS ORDERED: SODIUM CHLORIDE 0.9% 1,000 ML IV SCH (23:30)
[2017-07-09] MEDS: ALBUTEROL/IPRATROPIUM 3 ML NEB RESP TX SCH ×4 (00:17→19:14)
[2017-07-09] MEDS: DOCUSATE SODIUM 100 MG CAPSULE PO SCH ×3 (00:20→20:46)
[2017-07-09] MEDS: SKIN HEALING OINT (AQUAPHOR) 50 GM TUBE TOP SCH ×2 (00:23→21:27)
[2017-07-09] MEDS: MUPIROCIN 2% OINT 22 GM TUBE TOP SCH ×3 (00:23→20:46)
[2017-07-09 00:45] LABS: Albumin 2.2 G/DL (3.4-5.0); Basophils % 0.2 % (0.0-0.8); Bilirubin,Total 0.4 MG/DL (0.2-1.0); Calcium 7.9 MG/DL (8.5-10.1); Eosinophils % 0.1 % (0.00-10.9); Hematocrit 30.4 VOL% (35.7-47.0); Hemoglobin 9.7 GM/DL (12.0-16.0); Immature Granulocytes % 1.2 %; Immature Granulocytes Absolute 0.21 #; Lymphocytes # 0.9 10*3/uL (1.4-4.0); Lymphocytes % 5.2 % (21.3-54.2); Mean Corpuscular HGB Conc 31.9 GM/DL (32-36); Mean Corpuscular Hemoglobin 26 PG (27-34); Mean Corpuscular Volume 81.9 FL (87-102); Mean Platelet Volume 11.8 FL (9.6-12.0); Monocytes # 1.2 10*3/uL (0.11-0.8); Monocytes % 6.9 % (1.7-12.7); Neutrophils % 86.4 % (38.7-73.9); Platelet Count 161 T/CUMM (130-400); Potassium 4.2 MMOL/L (3.5-5.1); Red Blood Count 3.71 MC/CUMM (3.8-5.5); Red Cell Distribution Width 14.1 % (9.3-17.3); White Blood Count 17.3 T/CUMM (4-12)
[2017-07-09] MEDS: metroNIDAZOLE INJ 250 MG in IV BAG 1 EACH IV SCH ×4 (02:52→20:47)
[2017-07-09] MEDS: SODIUM CHLORIDE 0.9% 1,000 ML IV SCH ×3 (06:16→23:10)
[2017-07-09] MEDS ORDERED: INCRUSE INH SCH (09:00)
[2017-07-09] MEDS: INSULIN REGULAR 100 UNIT/ML SUBCUT SCH ×4 (10:20→21:26)
[2017-07-09] MEDS: CARVEDILOL 3.125 MG TABLET PO SCH (10:20)
[2017-07-09] MEDS: PANTOPRAZOLE 40 MG TABLET PO SCH (10:20)
[2017-07-09] MEDS: ESCITALOPRAM 10 MG TABLET PO SCH (10:20)
[2017-07-09] MEDS: guaiFENesin/DM ER 600-30 MG TABLET PO SCH ×2 (10:20→20:46)
[2017-07-09] MEDS: GLIMEPIRIDE 2 MG TABLET PO SCH ×2 (10:20→16:42)
[2017-07-09] MEDS: MAGNESIUM OXIDE 400 MG TABLET PO SCH (10:20)
[2017-07-09] MEDS: ASPIRIN EC 325 MG TABLET PO SCH (10:20)
[2017-07-09] MEDS: BISACODYL 5 MG TABLET PO SCH (10:21)
[2017-07-09] MEDS: methylPREDNISolone SOD SUC 40 MG/1 ML VIAL IV SCH ×2 (10:30→20:46)
[2017-07-09] MEDS ORDERED: SODIUM CHLORIDE 0.9% 250 ML IV ONE ×2 (11:00→13:58)
[2017-07-09] MEDS: OLANZapine 5 MG TABLET PO SCH (20:46)
[2017-07-09] MEDS: ATORVASTATIN 40 MG TABLET PO SCH (20:46)
[2017-07-09] MEDS: cefTRIAXone 1,000 MG in SYRINGE 1 EACH IV SCH (20:48)
[2017-07-09] MEDS ORDERED: AZITHROMYCIN 250 MG TABLET PO SCH (21:00)
[2017-07-10] MEDS: ALBUTEROL/IPRATROPIUM 3 ML NEB RESP TX SCH ×4 (00:27→20:08)
[2017-07-10] MEDS ORDERED: MAGNESIUM SULF RIDER 1 GM in PREMIX 1 EACH IV ONE (00:42)
[2017-07-10] MEDS: metroNIDAZOLE INJ 250 MG in IV BAG 1 EACH IV SCH ×4 (04:08→21:14)
[2017-07-10 05:48] LABS: Basophils % 0.1 % (0.0-0.8); Hematocrit 30.2 VOL% (35.7-47.0); Hemoglobin 9.8 GM/DL (12.0-16.0); Immature Granulocytes % 0.8 %; Immature Granulocytes Absolute 0.13 #; Lymphocytes # 0.8 10*3/uL (1.4-4.0); Mean Corpuscular HGB Conc 32.5 GM/DL (32-36); Mean Corpuscular Hemoglobin 26 PG (27-34); Mean Corpuscular Volume 79.5 FL (87-102); Mean Platelet Volume 12.3 FL (9.6-12.0); Monocytes # 0.9 10*3/uL (0.11-0.8); Monocytes % 5.4 % (1.7-12.7); Neutrophils # 14.3 10*3/uL (1.4-7.4); Neutrophils % 88.7 % (38.7-73.9); Platelet Count 229 T/CUMM (130-400); Red Cell Distribution Width 14.3 % (9.3-17.3); White Blood Count 16.2 T/CUMM (4-12)
[2017-07-10 06:09] LABS: Calcium 8.2 MG/DL (8.5-10.1); Osmolality,Calculated 308.7 MOS/KG (273-304); Potassium 4.8 MMOL/L (3.5-5.1)
[2017-07-10 06:20] LABS: Band Neutrophils 1 % (0-10); Burr Cells Slight; Giant Platelets Few; Hypochromasia Slight; Lymphocytes 7 % (20-55); Ovalocytes Slight; Platelet Estimate Adequate; Segmented Neutrophils 87 % (50-85); Total Cells Counted 100
[2017-07-10] MEDS ORDERED: methylPREDNISolone SOD SUC 40 MG/1 ML VIAL IV SCH (07:30)
[2017-07-10] MEDS: MAGNESIUM OXIDE 400 MG TABLET PO SCH (08:20)
[2017-07-10] MEDS ORDERED: INSULIN GLARGINE 100 UNIT/ML SUBCUT SCH (09:00)
[2017-07-10] MEDS: MUPIROCIN 2% OINT 22 GM TUBE TOP SCH ×2 (09:12→21:23)
[2017-07-10] MEDS: INSULIN REGULAR 100 UNIT/ML SUBCUT SCH ×5 (09:16→21:22)
[2017-07-10] MEDS: guaiFENesin/DM ER 600-30 MG TABLET PO SCH ×2 (09:17→21:14)
[2017-07-10] MEDS: ESCITALOPRAM 10 MG TABLET PO SCH (09:17)
[2017-07-10] MEDS: DOCUSATE SODIUM 100 MG CAPSULE PO SCH ×2 (09:17→21:14)
[2017-07-10] MEDS: GLIMEPIRIDE 2 MG TABLET PO SCH ×2 (09:17→17:26)
[2017-07-10] MEDS: ASPIRIN EC 325 MG TABLET PO SCH (09:17)
[2017-07-10] MEDS: BISACODYL 5 MG TABLET PO SCH (09:17)
[2017-07-10] MEDS: PANTOPRAZOLE 40 MG TABLET PO SCH (09:17)
[2017-07-10] MEDS: SODIUM CHLORIDE 0.9% 1,000 ML IV SCH ×2 (09:55→18:39)
[2017-07-10 11:48] LABS: Apearance,Urine Slightly Hazy (Clear); Bacteria,Urine Many /HPF (Few); Bilirubin,Urine Negative (Negative); Blood, Urine Negative (Negative); Glucose,Urine (UA) 150 mg/dL (Negative); Ketones,Urine Negative (Negative); Mucus,Urine Occasional /LPF (Occasional); Nitrite,Urine Negative (Negative); Protein,Urine Negative; RBC,Urine 2 /HPF (0-4); Squamous Epithelial Cell,Urine Occasional /HPF (0-10); Urine Color Yellow (Yellow); Urine Specific Gravity 1.011 (1.001-1.035); Urine Urobilinogen < 2.0 EU/DL (0.2-1.0); WBC,Urine 20 /HPF (0-6)
[2017-07-10] MEDS: ATORVASTATIN 40 MG TABLET PO SCH (21:14)
[2017-07-10] MEDS: OLANZapine 5 MG TABLET PO SCH (21:14)
[2017-07-10] MEDS: SKIN HEALING OINT (AQUAPHOR) 50 GM TUBE TOP SCH (21:14)
[2017-07-10] MEDS: cefTRIAXone 1,000 MG in SYRINGE 1 EACH IV SCH (21:22)
[2017-07-11] MEDS ORDERED: GLIMEPIRIDE 2 MG TABLET PO SCH (00:08)
[2017-07-11] MEDS ORDERED: INSULIN GLARGINE 100 UNIT/ML SUBCUT SCH (00:08)
[2017-07-11] MEDS: ALBUTEROL/IPRATROPIUM 3 ML NEB RESP TX SCH ×3 (00:29→12:01)
[2017-07-11] MEDS: metroNIDAZOLE INJ 250 MG in IV BAG 1 EACH IV SCH ×2 (02:36→09:55)
[2017-07-11] MEDS: ONDANSETRON 4 MG/2 ML VIAL IV PRN (02:36)
[2017-07-11] MEDS: SODIUM CHLORIDE 0.9% 1,000 ML IV SCH ×2 (02:43→11:57)
[2017-07-11 04:52] LABS: Calcium 8.6 MG/DL (8.5-10.1); Osmolality,Calculated 295.8 MOS/KG (273-304); Potassium 3.8 MMOL/L (3.5-5.1)
[2017-07-11] MEDS: INSULIN REGULAR 100 UNIT/ML SUBCUT SCH ×2 (07:36→12:05)
[2017-07-11] MEDS: BISACODYL 5 MG TABLET PO SCH (09:54)
[2017-07-11] MEDS: MAGNESIUM OXIDE 400 MG TABLET PO SCH (09:54)
[2017-07-11] MEDS: ASPIRIN EC 325 MG TABLET PO SCH (09:55)
[2017-07-11] MEDS: PANTOPRAZOLE 40 MG TABLET PO SCH (09:55)
[2017-07-11] MEDS: ESCITALOPRAM 10 MG TABLET PO SCH (09:55)
[2017-07-11] MEDS: guaiFENesin/DM ER 600-30 MG TABLET PO SCH (09:55)
[2017-07-11] MEDS: DOCUSATE SODIUM 100 MG CAPSULE PO SCH (09:55)
[2017-07-11] MEDS: MUPIROCIN 2% OINT 22 GM TUBE TOP SCH (09:56)
[2017-07-11 12:00] VITALS: BP 190/94
== END 2017-07-11 13:59 | disposition home health service (06) | DRG 194 ==
LOC: N.ED 16:19 → N.EDINP 20:46 → N.2E 22:20
PROVIDERS: ADMIT Internal Medicine; ATTEND Internal Medicine

== ENCOUNTER 2017-09-17 19:06 | Inpatient (IN) ==
[2017-09-23 11:57] VITALS: BP 170/97
== END 2017-09-23 12:36 | disposition home health service (06) | DRG 167 ==
LOC: EDBD → EDUNIT# → N.ED 19:06 → N.EDINP 21:01 → N.TELEN 22:46
PROVIDERS: ADMIT Internal Medicine; ATTEND Internal Medicine
PROC: BRONCHB (2017-09-22 07:35)

== ENCOUNTER 2018-04-24 18:08 | Inpatient (IN) ==
[2018-04-24] MEDS ORDERED: DEXTROSE 50% 25 GM/50 ML VIAL IV STA ×2 (18:13→18:19)
[2018-04-24 18:43] LABS: Basophils # 0.1 10*3/uL (0.0-0.2); Basophils % 1.1 % (0.0-0.8); Eosinophils # 0.1 10*3/uL (0.0-0.87); Eosinophils % 1.6 % (0.00-10.9); Hematocrit 33.3 VOL% (35.7-47.0); Hemoglobin 10.2 GM/DL (12.0-16.0); Immature Granulocytes % 0.9 %; Immature Granulocytes Absolute 0.05 #; Lymphocytes % 35.5 % (21.3-54.2); Mean Corpuscular HGB Conc 30.6 GM/DL (32-36); Mean Corpuscular Hemoglobin 27 PG (27-34); Mean Corpuscular Volume 88.6 FL (87-102); Mean Platelet Volume 11.9 FL (9.6-12.0); Monocytes # 0.7 10*3/uL (0.11-0.8); Monocytes % 12.7 % (1.7-12.7); Neutrophils # 2.7 10*3/uL (1.4-7.4); Neutrophils % 48.2 % (38.7-73.9); Platelet Count 157 T/CUMM (130-400); Red Blood Count 3.76 MC/CUMM (3.8-5.5); Red Cell Distribution Width 15.8 % (9.3-17.3); White Blood Count 5.5 T/CUMM (4-12)
[2018-04-24 19:07] LABS: Albumin 3.5 G/DL (3.4-5.0); Bilirubin,Total 0.4 MG/DL (0.2-1.0); Calcium 8.5 MG/DL (8.5-10.1); Osmolality,Calculated 294.4 MOS/KG (273-304); Potassium 3.2 MMOL/L (3.5-5.1); Total Protein 7.6 G/DL (6.4-8.3)
[2018-04-24] MEDS ORDERED: GLUCAGON 1 MG VIAL IM PRN (19:48)
[2018-04-24] MEDS ORDERED: ONDANSETRON 4 MG/2 ML VIAL IV PRN (19:48)
[2018-04-24] MEDS ORDERED: ACETAMINOPHEN 325 MG TABLET PO PRN ×2 (19:48→19:53)
[2018-04-24] MEDS ORDERED: DEXTROSE 50% 25 GM/50 ML SYRINGE IV PRN (19:48)
[2018-04-24] MEDS ORDERED: DEXTROSE 5% 1,000 ML IV SCH (20:00)
[2018-04-24 20:15] LABS: Calcium 8.5 MG/DL (8.5-10.1); Osmolality,Calculated 295.4 MOS/KG (273-304); Potassium 3.3 MMOL/L (3.5-5.1)
[2018-04-25] MEDS ORDERED: POTASSIUM CHLORIDE 20 MEQ TABLET PO ONE (00:22)
[2018-04-25] MEDS: DOCUSATE SODIUM 100 MG CAPSULE PO SCH ×3 (01:03→22:04)
[2018-04-25 01:24] LABS: Apearance,Urine CLOUDY (Clear); Bacteria,Urine Many /HPF (Few); Bilirubin,Urine Negative (Negative); Blood, Urine Moderate mg/dL (Negative); Glucose,Urine (UA) 50 mg/dL (Negative); Ketones,Urine Negative (Negative); Nitrite,Urine Negative (Negative); Protein,Urine 100 MG/DL; RBC,Urine 133 /HPF (0-4); Urine Color Yellow (Yellow); Urine Specific Gravity 1.004 (1.001-1.035); Urine Urobilinogen < 2.0 EU/DL (0.2-1.0); WBC,Urine 233 /HPF (0-6)
[2018-04-25 07:56] LABS: Calcium 8.6 MG/DL (8.5-10.1); Osmolality,Calculated 293.5 MOS/KG (273-304); Potassium 4.6 MMOL/L (3.5-5.1)
[2018-04-25] MEDS ORDERED: Umeclidinium Bromide [Incruse Ellipta] 1 PUFF INH SCH (09:00)
[2018-04-25] MEDS: ESCITALOPRAM 10 MG TABLET PO SCH (09:39)
[2018-04-25] MEDS: LOSARTAN 25 MG TABLET PO SCH (09:39)
[2018-04-25] MEDS: MAGNESIUM OXIDE 400 MG TABLET PO SCH (09:39)
[2018-04-25] MEDS: ASPIRIN EC 325 MG TABLET PO SCH (09:39)
[2018-04-25] MEDS: PANTOPRAZOLE 40 MG TABLET PO SCH (09:39)
[2018-04-25] MEDS: NITROFURANTOIN MACRO/MONO 100 MG CAPSULE PO SCH ×2 (09:39→22:04)
[2018-04-25] MEDS: FUROSEMIDE 40 MG TABLET PO SCH (09:39)
[2018-04-25] MEDS: INSULIN GLARGINE 100 UNIT/ML SUBCUT SCH (09:40)
[2018-04-25] MEDS: LORATADINE 10 MG TABLET PO SCH (09:41)
[2018-04-25] MEDS: ALBUTEROL/IPRATROPIUM 3 ML NEB RESP TX SCH ×2 (14:20→19:51)
[2018-04-25] MEDS: GLIMEPIRIDE 4 MG TABLET PO SCH (16:56)
[2018-04-25] MEDS: OLANZapine 5 MG TABLET PO SCH (22:04)
[2018-04-26] MEDS: ALBUTEROL/IPRATROPIUM 3 ML NEB RESP TX SCH ×4 (00:29→19:39)
[2018-04-26] MEDS: INSULIN GLARGINE 100 UNIT/ML SUBCUT SCH (09:49)
[2018-04-26] MEDS: GLIMEPIRIDE 4 MG TABLET PO SCH ×2 (09:49→17:54)
[2018-04-26] MEDS: MAGNESIUM OXIDE 400 MG TABLET PO SCH (09:49)
[2018-04-26] MEDS: PANTOPRAZOLE 40 MG TABLET PO SCH (09:49)
[2018-04-26] MEDS: ASPIRIN EC 325 MG TABLET PO SCH (09:49)
[2018-04-26] MEDS: DOCUSATE SODIUM 100 MG CAPSULE PO SCH ×2 (09:50→21:58)
[2018-04-26] MEDS: ESCITALOPRAM 10 MG TABLET PO SCH (09:50)
[2018-04-26] MEDS: NITROFURANTOIN MACRO/MONO 100 MG CAPSULE PO SCH ×2 (09:50→21:58)
[2018-04-26] MEDS: FUROSEMIDE 40 MG TABLET PO SCH (09:50)
[2018-04-26] MEDS: LORATADINE 10 MG TABLET PO SCH (09:50)
[2018-04-26] MEDS: LOSARTAN 25 MG TABLET PO SCH (09:50)
[2018-04-26] MEDS: INSULIN REGULAR 100 UNIT/ML SUBCUT SCH ×3 (13:56→21:58)
[2018-04-26] MEDS: OLANZapine 5 MG TABLET PO SCH (21:58)
[2018-04-27] MEDS: ALBUTEROL/IPRATROPIUM 3 ML NEB RESP TX SCH ×3 (02:02→12:06)
[2018-04-27] MEDS: INSULIN REGULAR 100 UNIT/ML SUBCUT SCH ×2 (07:54→12:23)
[2018-04-27] MEDS: FUROSEMIDE 40 MG TABLET PO SCH (09:02)
[2018-04-27] MEDS: INSULIN GLARGINE 100 UNIT/ML SUBCUT SCH (09:02)
[2018-04-27] MEDS: MAGNESIUM OXIDE 400 MG TABLET PO SCH (09:02)
[2018-04-27] MEDS: NITROFURANTOIN MACRO/MONO 100 MG CAPSULE PO SCH (09:02)
[2018-04-27] MEDS: DOCUSATE SODIUM 100 MG CAPSULE PO SCH (09:02)
[2018-04-27] MEDS: ESCITALOPRAM 10 MG TABLET PO SCH (09:02)
[2018-04-27] MEDS: LORATADINE 10 MG TABLET PO SCH (09:02)
[2018-04-27] MEDS: LOSARTAN 25 MG TABLET PO SCH (09:02)
[2018-04-27] MEDS: PANTOPRAZOLE 40 MG TABLET PO SCH (09:02)
[2018-04-27] MEDS: ASPIRIN EC 325 MG TABLET PO SCH (09:02)
[2018-04-27] MEDS: GLIMEPIRIDE 4 MG TABLET PO SCH (09:03)
[2018-04-27 12:35] VITALS: BP 146/89
== END 2018-04-27 13:50 | disposition home or self-care (01) | DRG 638 ==
LOC: N.ED 18:08 → N.EDINP 20:49 → N.5E 22:26
PROVIDERS: ADMIT Internal Medicine; ATTEND Internal Medicine

== ENCOUNTER 2018-06-26 01:44 | Inpatient (IN) ==
[2018-06-26] MEDS ORDERED: FUROSEMIDE 40 MG/4 ML VIAL IV STA (02:16)
[2018-06-26] MEDS ORDERED: ALBUTEROL/IPRATROPIUM 3 ML NEB RESP TX STA (02:16)
[2018-06-26] MEDS ORDERED: methylPREDNISolone SOD SUC 125 MG/2 ML VIAL IV STA (02:16)
[2018-06-26] MEDS ORDERED: LEVOFLOXACIN INJ 750 MG in PREMIX 1 EACH IV STA (02:19)
[2018-06-26] MEDS ORDERED: hydrALAZINE 20 MG/1 ML VIAL IV STA (03:02)
[2018-06-26 03:14] LABS: Basophils # 0.1 10*3/uL (0.0-0.2); Basophils % 0.9 % (0.0-0.8); Eosinophils # 0.1 10*3/uL (0.0-0.87); Eosinophils % 0.8 % (0.00-10.9); Hematocrit 34.8 VOL% (35.7-47.0); Hemoglobin 10.5 GM/DL (12.0-16.0); Immature Granulocytes % 1.2 %; Immature Granulocytes Absolute 0.12 #; Lymphocytes # 1.5 10*3/uL (1.4-4.0); Lymphocytes % 15.3 % (21.3-54.2); Mean Corpuscular HGB Conc 30.2 GM/DL (32-36); Mean Corpuscular Volume 87.7 FL (87-102); Neutrophils % 74.8 % (38.7-73.9); Platelet Count 210 T/CUMM (130-400); Red Blood Count 3.97 MC/CUMM (3.8-5.5); Red Cell Distribution Width 14.1 % (9.3-17.3); White Blood Count 9.8 T/CUMM (4-12)
[2018-06-26 03:21] LABS: INR 0.9; PT Patient Result 9.7 SECS
[2018-06-26 03:27] LABS: Apearance,Urine CLEAR (Clear); Bacteria,Urine Occasional /HPF (Few); Bilirubin,Urine Negative (Negative); Blood, Urine Small mg/dL (Negative); Glucose,Urine (UA) Negative (Negative); Hyaline Casts,Urine 3 /LPF (0-3); Ketones,Urine Negative (Negative); Nitrite,Urine Negative (Negative); Protein,Urine Negative; RBC,Urine 2 /HPF (0-4); Squamous Epithelial Cell,Urine Occasional /HPF (0-10); Urine Color Yellow (Yellow); Urine Urobilinogen < 2.0 EU/DL (0.2-1.0); WBC,Urine 3 /HPF (0-6)
[2018-06-26 03:34] LABS: Alanine Aminotransferase 29 U/L (13-56); Albumin 3.2 G/DL (3.4-5.0); Alkaline Phosphatase 194 U/L (45-117); Aspartate Amino Transferase 23 U/L (0-37); Blood Urea Nitrogen 52 MG/DL (7-18); Calcium 8.8 MG/DL (8.5-10.1); Glucose 220 MG/DL (74-106); Osmolality,Calculated 290.1 MOS/KG (273-304); Total Protein 7.8 G/DL (6.4-8.3)
[2018-06-26 03:50] LABS: Prolactin 23.9 NG/ML
[2018-06-26 04:16] LABS: Sedimentation Rate-Westergren 106 MM/HR (0-30)
[2018-06-26] MEDS ORDERED: DEXTROSE 50% 25 GM/50 ML SYRINGE IV PRN (04:33)
[2018-06-26] MEDS ORDERED: MORPHINE 4 MG/1 ML VIAL IV PRN (04:33)
[2018-06-26] MEDS ORDERED: ACETAMINOPHEN 325 MG TABLET PO PRN (04:33)
[2018-06-26] MEDS ORDERED: GLUCAGON 1 MG VIAL IM PRN (04:33)
[2018-06-26] MEDS ORDERED: ONDANSETRON 4 MG/2 ML VIAL IV PRN (04:33)
[2018-06-26] MEDS: SODIUM CHLORIDE 0.9% 1,000 ML IV SCH (05:29)
[2018-06-26] MEDS: INSULIN REGULAR 100 UNIT/ML SUBCUT SCH ×3 (05:56→18:30)
[2018-06-26] MEDS: ALBUTEROL/IPRATROPIUM 3 ML NEB RESP TX SCH ×5 (07:09→22:44)
[2018-06-26] MEDS ORDERED: PANTOPRAZOLE 40 MG VIAL IV SCH (09:00)
[2018-06-26] MEDS: DOCUSATE SODIUM 100 MG CAPSULE PO SCH ×2 (09:23→21:08)
[2018-06-26] MEDS: ENOXAPARIN 40 MG/0.4 ML SYRINGE SUBCUT SCH (09:23)
[2018-06-26] MEDS: methylPREDNISolone SOD SUC 40 MG/1 ML VIAL IV SCH ×2 (12:03→21:07)
[2018-06-26] MEDS ORDERED: traMADol 50 MG TABLET PO PRN (14:39)
[2018-06-26] MEDS ORDERED: INSULIN REGULAR 100 UNIT/ML SUBCUT ONE (14:47)
[2018-06-26] MEDS ORDERED: INSULIN GLARGINE 100 UNIT/ML SUBCUT SCH (15:00)
[2018-06-26] MEDS: INSULIN LISPRO 100 UNIT/ML SUBCUT SCH (17:44)
[2018-06-26] MEDS: GLIMEPIRIDE 4 MG TABLET PO SCH (17:44)
[2018-06-26] MEDS: OLANZapine 5 MG TABLET PO SCH (21:08)
[2018-06-26] MEDS: hydrALAZINE 25 MG TABLET PO SCH (21:08)
[2018-06-26] MEDS: INSULIN GLARGINE 100 UNIT/ML SUBCUT SCH (21:08)
[2018-06-27] MEDS: INSULIN REGULAR 100 UNIT/ML SUBCUT SCH ×4 (00:03→17:50)
[2018-06-27] MEDS: SODIUM CHLORIDE 0.9% 1,000 ML IV SCH ×2 (01:56→21:45)
[2018-06-27] MEDS: ALBUTEROL/IPRATROPIUM 3 ML NEB RESP TX SCH ×5 (02:39→19:30)
[2018-06-27] MEDS: LEVOFLOXACIN INJ 250 MG in PREMIX 1 EACH IV SCH (02:54)
[2018-06-27] MEDS: methylPREDNISolone SOD SUC 40 MG/1 ML VIAL IV SCH ×3 (02:54→21:41)
[2018-06-27 04:59] LABS: Basophils % 0.3 % (0.0-0.8); Hematocrit 36.6 VOL% (35.7-47.0); Hemoglobin 11.3 GM/DL (12.0-16.0); Lymphocytes # 0.7 10*3/uL (1.4-4.0); Lymphocytes % 7.6 % (21.3-54.2); Mean Corpuscular HGB Conc 30.9 GM/DL (32-36); Mean Corpuscular Volume 86.7 FL (87-102); Mean Platelet Volume 11.3 FL (9.6-12.0); Monocytes % 7.8 % (1.7-12.7); Neutrophils % 83.3 % (38.7-73.9); Platelet Count 239 T/CUMM (130-400); Red Blood Count 4.22 MC/CUMM (3.8-5.5); Red Cell Distribution Width 13.9 % (9.3-17.3); White Blood Count 9.6 T/CUMM (4-12)
[2018-06-27 05:47] LABS: Ferritin 94.4 ng/ml (8-252); Thyroid Stimulating Hormone 0.307 uIU/ml (0.358-3.74)
[2018-06-27 05:49] LABS: Albumin 3.1 G/DL (3.4-5.0); Bilirubin,Total 0.4 MG/DL (0.2-1.0); Calcium 8.6 MG/DL (8.5-10.1); Osmolality,Calculated 308.4 MOS/KG (273-304); Risk Ratio 4.51; Total Protein 7.9 G/DL (6.4-8.3)
[2018-06-27] MEDS ORDERED: MAGNESIUM OXIDE 400 MG TABLET PO SCH (09:00)
[2018-06-27] MEDS: GLIMEPIRIDE 4 MG TABLET PO SCH ×2 (09:11→17:50)
[2018-06-27] MEDS: LOSARTAN 25 MG TABLET PO SCH (09:11)
[2018-06-27] MEDS: FERROUS SULFATE 325 MG TABLET PO SCH (09:11)
[2018-06-27] MEDS: PANTOPRAZOLE 40 MG TABLET PO SCH (09:11)
[2018-06-27] MEDS: ASPIRIN EC 325 MG TABLET PO SCH (09:11)
[2018-06-27] MEDS: POTASSIUM CHLORIDE 10 MEQ TABLET PO SCH (09:11)
[2018-06-27] MEDS: FUROSEMIDE 40 MG TABLET PO SCH (09:11)
[2018-06-27] MEDS: DOCUSATE SODIUM 100 MG CAPSULE PO SCH ×2 (09:11→21:41)
[2018-06-27] MEDS: LORATADINE 10 MG TABLET PO SCH (09:11)
[2018-06-27] MEDS: hydrALAZINE 25 MG TABLET PO SCH ×2 (09:11→21:41)
[2018-06-27] MEDS: ESCITALOPRAM 10 MG TABLET PO SCH (09:11)
[2018-06-27] MEDS: INSULIN GLARGINE 100 UNIT/ML SUBCUT SCH ×2 (09:12→21:41)
[2018-06-27] MEDS: INSULIN LISPRO 100 UNIT/ML SUBCUT SCH ×3 (09:12→17:50)
[2018-06-27] MEDS: ENOXAPARIN 40 MG/0.4 ML SYRINGE SUBCUT SCH (09:12)
[2018-06-27] MEDS: NON-FORMULARY MEDICATION (Umeclidinium Bromide [Incruse Ellipta] 1 PUFF) INH SCH (09:18)
[2018-06-27] MEDS: OLANZapine 5 MG TABLET PO SCH (21:41)
[2018-06-28] MEDS: INSULIN REGULAR 100 UNIT/ML SUBCUT SCH ×4 (00:40→18:17)
[2018-06-28] MEDS: ALBUTEROL/IPRATROPIUM 3 ML NEB RESP TX SCH ×5 (02:00→19:51)
[2018-06-28] MEDS: LEVOFLOXACIN INJ 250 MG in PREMIX 1 EACH IV SCH (03:22)
[2018-06-28 04:46] LABS: Basophils % 0.1 % (0.0-0.8); Hematocrit 35.2 VOL% (35.7-47.0); Immature Granulocytes % 0.7 %; Immature Granulocytes Absolute 0.09 #; Lymphocytes # 0.8 10*3/uL (1.4-4.0); Lymphocytes % 6.4 % (21.3-54.2); Mean Corpuscular HGB Conc 31.3 GM/DL (32-36); Mean Corpuscular Volume 87.8 FL (87-102); Mean Platelet Volume 10.8 FL (9.6-12.0); Monocytes % 3.7 % (1.7-12.7); Neutrophils % 89.1 % (38.7-73.9); Platelet Count 233 T/CUMM (130-400); Red Blood Count 4.01 MC/CUMM (3.8-5.5); Red Cell Distribution Width 14.1 % (9.3-17.3); White Blood Count 13.1 T/CUMM (4-12)
[2018-06-28 05:02] LABS: Calcium 9.1 MG/DL (8.5-10.1); Osmolality,Calculated 301.3 MOS/KG (273-304)
[2018-06-28] MEDS: LOSARTAN 25 MG TABLET PO SCH (08:39)
[2018-06-28] MEDS: FERROUS SULFATE 325 MG TABLET PO SCH (08:39)
[2018-06-28] MEDS: POTASSIUM CHLORIDE 10 MEQ TABLET PO SCH (08:40)
[2018-06-28] MEDS: hydrALAZINE 25 MG TABLET PO SCH ×2 (08:40→20:55)
[2018-06-28] MEDS: FUROSEMIDE 40 MG TABLET PO SCH (08:40)
[2018-06-28] MEDS: DOCUSATE SODIUM 100 MG CAPSULE PO SCH ×2 (08:40→20:55)
[2018-06-28] MEDS: ESCITALOPRAM 10 MG TABLET PO SCH (08:40)
[2018-06-28] MEDS: LORATADINE 10 MG TABLET PO SCH (08:40)
[2018-06-28] MEDS: GLIMEPIRIDE 4 MG TABLET PO SCH ×2 (08:40→18:16)
[2018-06-28] MEDS: ASPIRIN EC 325 MG TABLET PO SCH (08:40)
[2018-06-28] MEDS: INSULIN GLARGINE 100 UNIT/ML SUBCUT SCH ×2 (08:42→20:53)
[2018-06-28] MEDS: INSULIN LISPRO 100 UNIT/ML SUBCUT SCH ×3 (08:43→18:17)
[2018-06-28] MEDS: ENOXAPARIN 40 MG/0.4 ML SYRINGE SUBCUT SCH (08:44)
[2018-06-28] MEDS: methylPREDNISolone SOD SUC 40 MG/1 ML VIAL IV SCH (08:46)
[2018-06-28] MEDS: NON-FORMULARY MEDICATION (Umeclidinium Bromide [Incruse Ellipta] 1 PUFF) INH SCH (08:49)
[2018-06-28] MEDS: PANTOPRAZOLE 40 MG TABLET PO SCH (09:22)
[2018-06-28] MEDS: SODIUM CHLORIDE 0.9% 1,000 ML IV SCH (16:33)
[2018-06-28] MEDS: OLANZapine 5 MG TABLET PO SCH (20:55)
[2018-06-29] MEDS: ALBUTEROL/IPRATROPIUM 3 ML NEB RESP TX SCH ×6 (00:10→19:44)
[2018-06-29] MEDS: INSULIN REGULAR 100 UNIT/ML SUBCUT SCH ×4 (00:55→18:54)
[2018-06-29] MEDS: LEVOFLOXACIN INJ 250 MG in PREMIX 1 EACH IV SCH (03:44)
[2018-06-29] MEDS ORDERED: predniSONE 20 MG TABLET PO SCH (09:00)
[2018-06-29] MEDS: LOSARTAN 25 MG TABLET PO SCH (09:32)
[2018-06-29] MEDS: DOCUSATE SODIUM 100 MG CAPSULE PO SCH (09:32)
[2018-06-29] MEDS: ASPIRIN EC 325 MG TABLET PO SCH (09:32)
[2018-06-29] MEDS: FERROUS SULFATE 325 MG TABLET PO SCH (09:32)
[2018-06-29] MEDS: POTASSIUM CHLORIDE 10 MEQ TABLET PO SCH (09:32)
[2018-06-29] MEDS: LORATADINE 10 MG TABLET PO SCH (09:32)
[2018-06-29] MEDS: ESCITALOPRAM 10 MG TABLET PO SCH (09:32)
[2018-06-29] MEDS: FUROSEMIDE 40 MG TABLET PO SCH (09:32)
[2018-06-29] MEDS: ENOXAPARIN 40 MG/0.4 ML SYRINGE SUBCUT SCH (09:33)
[2018-06-29] MEDS: PANTOPRAZOLE 40 MG TABLET PO SCH (09:33)
[2018-06-29] MEDS: GLIMEPIRIDE 4 MG TABLET PO SCH ×2 (09:33→19:17)
[2018-06-29] MEDS: INSULIN GLARGINE 100 UNIT/ML SUBCUT SCH (09:33)
[2018-06-29] MEDS: hydrALAZINE 25 MG TABLET PO SCH (09:40)
[2018-06-29] MEDS: NON-FORMULARY MEDICATION (Umeclidinium Bromide [Incruse Ellipta] 1 PUFF) INH SCH (09:40)
[2018-06-29] MEDS: INSULIN LISPRO 100 UNIT/ML SUBCUT SCH ×3 (09:40→19:17)
[2018-06-29] MEDS: SODIUM CHLORIDE 0.9% 1,000 ML IV SCH (17:53)
[2018-06-29 20:40] VITALS: BP 133/92
== END 2018-06-29 20:14 | disposition home or self-care (01) | DRG 194 ==
LOC: N.ED 01:44 → N.EDINP 03:52 → N.TELEN 04:23
PROVIDERS: ADMIT Internal Medicine; ATTEND Internal Medicine

== ENCOUNTER 2019-11-18 03:34 | Inpatient (IN) ==
[2019-11-18] MEDS ORDERED: SODIUM CHLORIDE 0.9% 500 ML IV STA (04:18)
[2019-11-18] MEDS ORDERED: ONDANSETRON 4 MG/2 ML VIAL IV STA (04:18)
[2019-11-18] MEDS ORDERED: ALUM/MAG/SIMETH/LIDO VISC 1:1 30 ML BOTTLE PO STA (04:18)
[2019-11-18] MEDS ORDERED: PANTOPRAZOLE 40 MG VIAL IV STA (04:18)
[2019-11-18 04:43] LABS: Basophils % 0.4 % (0.0-0.8); Eosinophils % 0.4 % (0.00-10.9); Hematocrit 43.2 VOL% (35.7-47.0); Hemoglobin 13.9 GM/DL (12.0-16.0); Immature Granulocytes % 0.6 %; Immature Granulocytes Absolute 0.06 #; Lymphocytes # 1.6 10*3/uL (1.4-4.0); Lymphocytes % 14.4 % (21.3-54.2); Mean Corpuscular HGB Conc 32.2 GM/DL (32-36); Mean Corpuscular Volume 85.5 FL (87-102); Mean Platelet Volume 10.9 FL (9.6-12.0); Neutrophils % 76.2 % (38.7-73.9); Platelet Count 198 T/CUMM (130-400); Red Blood Count 5.05 MC/CUMM (3.8-5.5); Red Cell Distribution Width 14.1 % (9.3-17.3); White Blood Count 10.9 T/CUMM (4-12)
[2019-11-18 04:47] LABS: Bacteria,Urine Many /HPF (Few); Bilirubin,Urine Negative (Negative); Blood, Urine Small mg/dL (Negative); Glucose,Urine (UA) Negative (Negative); Ketones,Urine 5 mg/dL (Negative); Nitrite,Urine Negative (Negative); Protein,Urine 100 MG/DL; RBC,Urine 17 /HPF (0-4); Squamous Epithelial Cell,Urine Moderate /HPF (0-10); Urine Appearance CLOUDY (Clear); Urine Color Yellow (Yellow); Urine Specific Gravity 1.014 (1.001-1.035); WBC,Urine 1464 /HPF (0-6)
[2019-11-18] MEDS ORDERED: LEVOFLOXACIN INJ 500 MG in PREMIX 1 EACH IV STA (04:50)
[2019-11-18 05:18] LABS: Albumin 3.7 G/DL (3.4-5.0); Bilirubin,Total 0.4 MG/DL (0.2-1.0); Calcium 9.6 MG/DL (8.5-10.1); Osmolality,Calculated 291.5 MOS/KG (273-304); Total Protein 7.6 G/DL (6.4-8.3)
[2019-11-18] MEDS ORDERED: GLUCAGON 1 MG VIAL IM PRN (05:42)
[2019-11-18] MEDS ORDERED: ACETAMINOPHEN 325 MG TABLET PO PRN (05:42)
[2019-11-18] MEDS ORDERED: DEXTROSE 50% 25 GM/50 ML VIAL IV PRN (05:42)
[2019-11-18] MEDS ORDERED: MORPHINE 4 MG/1 ML VIAL IV PRN (05:42)
[2019-11-18] MEDS: MEROPENEM 500 MG in SODIUM CHLORIDE 0.9% 100 ML IV SCH ×2 (06:02→18:37)
[2019-11-18] MEDS ORDERED: PANTOPRAZOLE 40 MG TABLET PO SCH (09:00)
[2019-11-18] MEDS ORDERED: DOCUSATE SODIUM 100 MG CAPSULE PO SCH (09:00)
[2019-11-18] MEDS: INSULIN REGULAR 100 UNIT/ML SUBCUT SCH ×4 (10:13→22:10)
[2019-11-18] MEDS: SODIUM CHLORIDE 0.9% 1,000 ML IV SCH ×3 (10:16→23:52)
[2019-11-18] MEDS ORDERED: POTASSIUM CHLORIDE 20 MEQ TABLET PO ONE (15:27)
[2019-11-18] MEDS ORDERED: SODIUM PHOSPHATE ENEMA 133 ML BOTTLE RECTAL ONE ×2 (15:28→18:24)
[2019-11-18 17:28] LABS: Bilirubin,Urine Negative (Negative); Blood, Urine Small mg/dL (Negative); Glucose,Urine (UA) Negative (Negative); Ketones,Urine Negative (Negative); Nitrite,Urine Negative (Negative); Protein,Urine 100 MG/DL; RBC,Urine 13 /HPF (0-4); Squamous Epithelial Cell,Urine Occasional /HPF (0-10); Urine Appearance CLOUDY (Clear); Urine Color Yellow (Yellow); Urine Urobilinogen < 2.0 EU/DL (0.2-1.0); WBC,Urine 258 /HPF (0-6)
[2019-11-18] MEDS ORDERED: DOCUSATE SODIUM 100 MG CAPSULE PO PRN (17:48)
[2019-11-18] MEDS ORDERED: SODIUM PHOSPHATE ENEMA 133 ML BOTTLE RECTAL PRN (18:23)
[2019-11-18] MEDS: ALBUTEROL/IPRATROPIUM 3 ML NEB RESP TX SCH (20:49)
[2019-11-18] MEDS: OLANZapine 5 MG TABLET PO SCH (21:50)
[2019-11-18] MEDS: ROSUVASTATIN 10 MG TABLET PO SCH (21:50)
[2019-11-18] MEDS: PANTOPRAZOLE 40 MG TABLET PO SCH (21:51)
[2019-11-18] MEDS: FLUTICASONE 50 MCG NASAL SPRAY 16 GM BOTTLE BOTH NARES SCH (21:59)
[2019-11-18] MEDS: POTASSIUM CHLORIDE 10 MEQ TABLET PO SCH (22:10)
[2019-11-18] MEDS: ONDANSETRON 4 MG/2 ML VIAL IV PRN (23:57)
[2019-11-19] MEDS: ALBUTEROL/IPRATROPIUM 3 ML NEB RESP TX SCH ×4 (02:18→19:12)
[2019-11-19] MEDS: MEROPENEM 500 MG in SODIUM CHLORIDE 0.9% 100 ML IV SCH ×2 (05:52→17:30)
[2019-11-19] MEDS: SODIUM CHLORIDE 0.9% 1,000 ML IV SCH ×4 (06:39→20:21)
[2019-11-19 06:43] LABS: Basophils # 0.1 10*3/uL (0.0-0.2); Basophils % 0.7 % (0.0-0.8); Eosinophils # 0.1 10*3/uL (0.0-0.87); Hematocrit 34.1 VOL% (35.7-47.0); Hemoglobin 10.5 GM/DL (12.0-16.0); Immature Granulocytes % 0.7 %; Immature Granulocytes Absolute 0.05 #; Lymphocytes # 1.7 10*3/uL (1.4-4.0); Lymphocytes % 24.9 % (21.3-54.2); Mean Corpuscular HGB Conc 30.8 GM/DL (32-36); Mean Corpuscular Volume 89.3 FL (87-102); Mean Platelet Volume 10.5 FL (9.6-12.0); Monocytes % 11.4 % (1.7-12.7); Neutrophils % 61.3 % (38.7-73.9); Platelet Count 151 T/CUMM (130-400); Red Blood Count 3.82 MC/CUMM (3.8-5.5); Red Cell Distribution Width 14.1 % (9.3-17.3); White Blood Count 6.8 T/CUMM (4-12)
[2019-11-19 09:00] LABS: Albumin 2.7 G/DL (3.4-5.0); Calcium 8.7 MG/DL (8.5-10.1); Osmolality,Calculated 296.8 MOS/KG (273-304); Total Protein 6.2 G/DL (6.4-8.3)
[2019-11-19 09:01] LABS: Risk Ratio 2.05; VLDL CHOLESTEROL 16.2 MG/DL
[2019-11-19] MEDS: ASPIRIN EC 325 MG TABLET PO SCH (10:01)
[2019-11-19] MEDS: POLYETHYLENE GLYCOL POWDER 17 GM PACK PO SCH (10:01)
[2019-11-19] MEDS: LORATADINE 10 MG TABLET PO SCH (10:01)
[2019-11-19] MEDS: ESCITALOPRAM 10 MG TABLET PO SCH (10:01)
[2019-11-19] MEDS: POTASSIUM CHLORIDE 10 MEQ TABLET PO SCH ×2 (10:01→21:29)
[2019-11-19] MEDS: INSULIN REGULAR 100 UNIT/ML SUBCUT SCH ×4 (10:02→21:29)
[2019-11-19] MEDS: PANTOPRAZOLE 40 MG TABLET PO SCH ×2 (10:02→21:30)
[2019-11-19] MEDS: ONDANSETRON 4 MG/2 ML VIAL IV PRN (17:40)
[2019-11-19] MEDS ORDERED: PROMETHAZINE 25 MG/1 ML VIAL IM PRN (20:48)
[2019-11-19] MEDS ORDERED: ONDANSETRON 4 MG/2 ML VIAL IV PRN (20:51)
[2019-11-19] MEDS: OLANZapine 5 MG TABLET PO SCH (21:29)
[2019-11-19] MEDS: ROSUVASTATIN 10 MG TABLET PO SCH (21:30)
[2019-11-19] MEDS: FLUTICASONE 50 MCG NASAL SPRAY 16 GM BOTTLE BOTH NARES SCH (21:30)
[2019-11-20] MEDS: ALBUTEROL/IPRATROPIUM 3 ML NEB RESP TX SCH ×4 (00:17→19:39)
[2019-11-20] MEDS: SODIUM CHLORIDE 0.9% 1,000 ML IV SCH ×2 (05:14→15:49)
[2019-11-20] MEDS: MEROPENEM 500 MG in SODIUM CHLORIDE 0.9% 100 ML IV SCH ×2 (05:14→17:47)
[2019-11-20 06:50] LABS: Basophils % 0.5 % (0.0-0.8); Eosinophils # 0.2 10*3/uL (0.0-0.87); Eosinophils % 2.2 % (0.00-10.9); Hematocrit 35.9 VOL% (35.7-47.0); Hemoglobin 10.7 GM/DL (12.0-16.0); Immature Granulocytes % 0.6 %; Immature Granulocytes Absolute 0.05 #; Lymphocytes # 1.7 10*3/uL (1.4-4.0); Lymphocytes % 20.5 % (21.3-54.2); Mean Corpuscular HGB Conc 29.8 GM/DL (32-36); Mean Corpuscular Volume 90.7 FL (87-102); Mean Platelet Volume 10.5 FL (9.6-12.0); Neutrophils % 65.2 % (38.7-73.9); Platelet Count 156 T/CUMM (130-400); Red Blood Count 3.96 MC/CUMM (3.8-5.5)
[2019-11-20 07:04] LABS: Calcium 8.5 MG/DL (8.5-10.1); Osmolality,Calculated 293.7 MOS/KG (273-304)
[2019-11-20] MEDS: POTASSIUM CHLORIDE 10 MEQ TABLET PO SCH ×2 (09:14→20:41)
[2019-11-20] MEDS: ESCITALOPRAM 10 MG TABLET PO SCH (09:14)
[2019-11-20] MEDS: PANTOPRAZOLE 40 MG TABLET PO SCH ×2 (09:14→20:41)
[2019-11-20] MEDS: LORATADINE 10 MG TABLET PO SCH (09:14)
[2019-11-20] MEDS: ASPIRIN EC 325 MG TABLET PO SCH (09:14)
[2019-11-20] MEDS: POLYETHYLENE GLYCOL POWDER 17 GM PACK PO SCH (09:14)
[2019-11-20] MEDS: INSULIN REGULAR 100 UNIT/ML SUBCUT SCH ×4 (09:15→20:42)
[2019-11-20] MEDS: ROSUVASTATIN 10 MG TABLET PO SCH (20:41)
[2019-11-20] MEDS: FLUTICASONE 50 MCG NASAL SPRAY 16 GM BOTTLE BOTH NARES SCH (20:41)
[2019-11-20] MEDS: OLANZapine 5 MG TABLET PO SCH (20:41)
[2019-11-21] MEDS: ALBUTEROL/IPRATROPIUM 3 ML NEB RESP TX SCH ×4 (00:27→20:40)
[2019-11-21] MEDS: SODIUM CHLORIDE 0.9% 1,000 ML IV SCH ×3 (01:19→16:44)
[2019-11-21] MEDS: MEROPENEM 500 MG in SODIUM CHLORIDE 0.9% 100 ML IV SCH ×2 (05:38→17:00)
[2019-11-21] MEDS: POLYETHYLENE GLYCOL POWDER 17 GM PACK PO SCH (09:30)
[2019-11-21] MEDS: POTASSIUM CHLORIDE 10 MEQ TABLET PO SCH ×2 (09:30→22:49)
[2019-11-21] MEDS: LORATADINE 10 MG TABLET PO SCH (09:31)
[2019-11-21] MEDS: ESCITALOPRAM 10 MG TABLET PO SCH (09:31)
[2019-11-21] MEDS: ASPIRIN EC 325 MG TABLET PO SCH (09:31)
[2019-11-21] MEDS: PANTOPRAZOLE 40 MG TABLET PO SCH ×2 (09:31→22:49)
[2019-11-21] MEDS: INSULIN REGULAR 100 UNIT/ML SUBCUT SCH ×3 (09:35→16:45)
[2019-11-21] MEDS ORDERED: LEVOFLOXACIN INJ 500 MG in PREMIX 1 EACH IV SCH (10:30)
[2019-11-21] MEDS: ROSUVASTATIN 10 MG TABLET PO SCH (22:49)
[2019-11-21] MEDS: OLANZapine 5 MG TABLET PO SCH (22:49)
[2019-11-21] MEDS: FLUTICASONE 50 MCG NASAL SPRAY 16 GM BOTTLE BOTH NARES SCH (22:50)
[2019-11-22] MEDS: INSULIN REGULAR 100 UNIT/ML SUBCUT SCH ×5 (00:25→22:24)
[2019-11-22] MEDS: ALBUTEROL/IPRATROPIUM 3 ML NEB RESP TX SCH ×4 (00:31→20:58)
[2019-11-22] MEDS: SODIUM CHLORIDE 0.9% 1,000 ML IV SCH ×2 (06:00→13:30)
[2019-11-22] MEDS: MEROPENEM 500 MG in SODIUM CHLORIDE 0.9% 100 ML IV SCH ×2 (06:01→17:19)
[2019-11-22 06:16] LABS: Basophils # 0.1 10*3/uL (0.0-0.2); Basophils % 0.9 % (0.0-0.8); Eosinophils # 0.2 10*3/uL (0.0-0.87); Eosinophils % 3.4 % (0.00-10.9); Hematocrit 34.9 VOL% (35.7-47.0); Hemoglobin 10.6 GM/DL (12.0-16.0); Immature Granulocytes % 0.6 %; Immature Granulocytes Absolute 0.04 #; Lymphocytes # 1.7 10*3/uL (1.4-4.0); Lymphocytes % 23.9 % (21.3-54.2); Mean Corpuscular HGB Conc 30.4 GM/DL (32-36); Mean Corpuscular Volume 89.5 FL (87-102); Mean Platelet Volume 11.1 FL (9.6-12.0); Monocytes % 11.6 % (1.7-12.7); Neutrophils % 59.6 % (38.7-73.9); Platelet Count 147 T/CUMM (130-400); Red Cell Distribution Width 14.1 % (9.3-17.3)
[2019-11-22 06:40] LABS: Calcium 9.1 MG/DL (8.5-10.1)
[2019-11-22] MEDS: PANTOPRAZOLE 40 MG TABLET PO SCH ×2 (09:21→21:43)
[2019-11-22] MEDS: ASPIRIN EC 325 MG TABLET PO SCH (09:21)
[2019-11-22] MEDS: ESCITALOPRAM 10 MG TABLET PO SCH (09:21)
[2019-11-22] MEDS: LORATADINE 10 MG TABLET PO SCH (09:21)
[2019-11-22] MEDS: POLYETHYLENE GLYCOL POWDER 17 GM PACK PO SCH (09:21)
[2019-11-22] MEDS: POTASSIUM CHLORIDE 10 MEQ TABLET PO SCH ×2 (09:21→21:43)
[2019-11-22] MEDS: LEVOFLOXACIN INJ 250 MG in PREMIX 1 EACH IV SCH (11:36)
[2019-11-22] MEDS: cloNIDine 0.1 MG TABLET PO SCH ×2 (14:25→21:43)
[2019-11-22] MEDS: hydrALAZINE 25 MG TABLET PO SCH ×2 (14:25→21:43)
[2019-11-22] MEDS: OLANZapine 5 MG TABLET PO SCH (21:43)
[2019-11-22] MEDS: ROSUVASTATIN 10 MG TABLET PO SCH (21:43)
[2019-11-22] MEDS: FLUTICASONE 50 MCG NASAL SPRAY 16 GM BOTTLE BOTH NARES SCH (21:44)
[2019-11-23] MEDS: SODIUM CHLORIDE 0.9% 1,000 ML IV SCH ×2 (00:11→08:52)
[2019-11-23] MEDS: ALBUTEROL/IPRATROPIUM 3 ML NEB RESP TX SCH ×2 (01:57→07:04)
[2019-11-23] MEDS: MEROPENEM 500 MG in SODIUM CHLORIDE 0.9% 100 ML IV SCH (05:27)
[2019-11-23 08:15] VITALS: BP 130/55
[2019-11-23] MEDS: INSULIN REGULAR 100 UNIT/ML SUBCUT SCH (08:52)
[2019-11-23] MEDS: POLYETHYLENE GLYCOL POWDER 17 GM PACK PO SCH (08:52)
[2019-11-23] MEDS: ESCITALOPRAM 10 MG TABLET PO SCH (08:53)
[2019-11-23] MEDS: cloNIDine 0.1 MG TABLET PO SCH (08:53)
[2019-11-23] MEDS: hydrALAZINE 25 MG TABLET PO SCH (08:53)
[2019-11-23] MEDS: LORATADINE 10 MG TABLET PO SCH (08:53)
[2019-11-23] MEDS: PANTOPRAZOLE 40 MG TABLET PO SCH (08:53)
[2019-11-23] MEDS: POTASSIUM CHLORIDE 10 MEQ TABLET PO SCH (08:53)
[2019-11-23] MEDS: ASPIRIN EC 325 MG TABLET PO SCH (08:53)
[2019-11-23] MEDS: LEVOFLOXACIN INJ 250 MG in PREMIX 1 EACH IV SCH ×2 (09:13→09:32)
== END 2019-11-23 11:43 | disposition home health service (06) | DRG 683 ==
LOC: N.ED 03:34 → N.EDINP 05:36 → N.TELEN 13:26
PROVIDERS: ADMIT Internal Medicine; ATTEND Internal Medicine

== ENCOUNTER 2020-08-03 11:44 | Inpatient (IN) ==
[2020-08-03 12:23] LABS: Basophils # 0.1 10*3/uL (0.0-0.2); Basophils % 0.9 % (0.0-0.8); Eosinophils # 0.2 10*3/uL (0.0-0.87); Hematocrit 42.9 VOL% (35.7-47.0); Hemoglobin 13.3 GM/DL (12.0-16.0); Immature Granulocytes % 0.5 %; Immature Granulocytes Absolute 0.03 #; Lymphocytes # 0.8 10*3/uL (1.4-4.0); Lymphocytes % 13.3 % (21.3-54.2); Mean Corpuscular Volume 85.3 FL (87-102); Mean Platelet Volume 11.3 FL (9.6-12.0); Monocytes % 8.5 % (1.7-12.7); Neutrophils % 73.8 % (38.7-73.9); Platelet Count 184 T/CUMM (130-400); Red Blood Count 5.03 MC/CUMM (3.8-5.5); Red Cell Distribution Width 16.1 % (9.3-17.3); White Blood Count 6.3 T/CUMM (4-12)
[2020-08-03 12:29] LABS: INR 0.9; PT Patient Result 10.1 SECS (10.5-12.0); Partial Thromboplastin Time 26.8 SECS (23.9-33.8)
[2020-08-03 12:39] LABS: Alanine Aminotransferase 22 U/L (13-56); Albumin 2.6 G/DL (3.4-5.0); Alkaline Phosphatase 102 U/L (45-117); Aspartate Amino Transferase 17 U/L (0-37); Bilirubin,Total < 0.39 MG/DL (0.2-1.0); Blood Urea Nitrogen 29 MG/DL (7-18); Calcium 8.4 MG/DL (8.5-10.1); Carbon Dioxide 31 MMOL/L (21-32); Estimated Glom Filtration Rate 47 ML/MIN; Glucose 101 MG/DL (74-106); Osmolality,Calculated 293.7 MOS/KG (273-304); Potassium 4.2 MMOL/L (3.5-5.1); Sodium 145 MMOL/L (136-145); Total Protein 6.4 G/DL (6.4-8.2)
[2020-08-03] MEDS ORDERED: FUROSEMIDE 40 MG/4 ML VIAL IV STA (14:00)
[2020-08-03] MEDS ORDERED: cloNIDine 0.1 MG TABLET PO STA (14:11)
[2020-08-03] MEDS ORDERED: ACETAMINOPHEN 325 MG TABLET PO PRN (14:14)
[2020-08-03] MEDS ORDERED: ASPIRIN 325 MG TABLET PO STA (14:16)
[2020-08-03] MEDS ORDERED: ENOXAPARIN 80 MG/0.8 ML SYRINGE SUBCUT STA (14:19)
[2020-08-03] MEDS: ONDANSETRON 4 MG/2 ML VIAL IV PRN (14:50)
[2020-08-03] MEDS ORDERED: ENOXAPARIN 40 MG/0.4 ML SYRINGE SUBCUT STA (19:11)
[2020-08-03] MEDS: cloNIDine 0.1 MG TABLET PO PRN (19:15)
[2020-08-03] MEDS ORDERED: GLUCAGON 1 MG VIAL IM PRN (20:58)
[2020-08-03] MEDS ORDERED: hydrALAZINE 25 MG TABLET PO SCH (21:00)
[2020-08-03] MEDS: AZITHROMYCIN INJ 500 MG in SODIUM CHLORIDE 0.9% 250 ML IV SCH (23:31)
[2020-08-03] MEDS: OLANZapine 5 MG TABLET PO SCH (23:31)
[2020-08-03] MEDS: ROSUVASTATIN 10 MG TABLET PO SCH (23:32)
[2020-08-03] MEDS: METOCLOPRAMIDE 5 MG TABLET PO SCH (23:32)
[2020-08-03] MEDS: GABAPENTIN 300 MG CAPSULE PO SCH (23:32)
[2020-08-03] MEDS: POTASSIUM CHLORIDE 10 MEQ TABLET PO SCH (23:37)
[2020-08-03] MEDS: cloNIDine 0.1 MG TABLET PO SCH (23:43)
[2020-08-03] MEDS: INSULIN REGULAR 100 UNIT/ML SUBCUT SCH (23:44)
[2020-08-03] MEDS ORDERED: ALBUTEROL/IPRATROPIUM 3 ML NEB RESP TX ONE (23:55)
[2020-08-04] MEDS: ALBUTEROL/IPRATROPIUM 3 ML NEB RESP TX SCH ×4 (01:38→19:05)
[2020-08-04 06:32] LABS: Basophils # 0.1 10*3/uL (0.0-0.2); Basophils % 1.4 % (0.0-0.8); Eosinophils # 0.2 10*3/uL (0.0-0.87); Eosinophils % 3.7 % (0.00-10.9); Hematocrit 39.3 VOL% (35.7-47.0); Hemoglobin 11.9 GM/DL (12.0-16.0); Immature Granulocytes % 0.4 %; Immature Granulocytes Absolute 0.02 #; Lymphocytes # 1.1 10*3/uL (1.4-4.0); Lymphocytes % 23.1 % (21.3-54.2); Mean Corpuscular HGB Conc 30.3 GM/DL (32-36); Mean Corpuscular Volume 86.8 FL (87-102); Mean Platelet Volume 11.3 FL (9.6-12.0); Monocytes % 12.1 % (1.7-12.7); Neutrophils % 59.3 % (38.7-73.9); Platelet Count 155 T/CUMM (130-400); Red Blood Count 4.53 MC/CUMM (3.8-5.5); Red Cell Distribution Width 15.9 % (9.3-17.3); White Blood Count 4.9 T/CUMM (4-12)
[2020-08-04 06:36] LABS: Alanine Aminotransferase 16 U/L (13-56); Albumin 2.1 G/DL (3.4-5.0); Alkaline Phosphatase 86 U/L (45-117); Aspartate Amino Transferase 15 U/L (0-37); Bilirubin,Total < 0.39 MG/DL (0.2-1.0); Blood Urea Nitrogen 29 MG/DL (7-18); Calcium 8.4 MG/DL (8.5-10.1); Carbon Dioxide 30 MMOL/L (21-32); Estimated Glom Filtration Rate 47 ML/MIN; Glucose 71 MG/DL (74-106); Osmolality,Calculated 289.8 MOS/KG (273-304); Potassium 4.2 MMOL/L (3.5-5.1); Sodium 144 MMOL/L (136-145); Total Protein 5.8 G/DL (6.4-8.2)
[2020-08-04] MEDS ORDERED: FUROSEMIDE 40 MG/4 ML VIAL IV SCH (09:00)
[2020-08-04] MEDS: POLYETHYLENE GLYCOL POWDER 17 GM PACK PO SCH (10:37)
[2020-08-04] MEDS: ASPIRIN EC 325 MG TABLET PO SCH (10:38)
[2020-08-04] MEDS: ESCITALOPRAM 10 MG TABLET PO SCH (10:38)
[2020-08-04] MEDS: FERROUS SULFATE 325 MG TABLET PO SCH (10:38)
[2020-08-04] MEDS: LORATADINE 10 MG TABLET PO SCH (10:38)
[2020-08-04] MEDS: POTASSIUM CHLORIDE 10 MEQ TABLET PO SCH ×2 (10:38→21:38)
[2020-08-04] MEDS: cloNIDine 0.1 MG TABLET PO SCH ×2 (10:38→21:38)
[2020-08-04] MEDS: MAGNESIUM OXIDE 400 MG TABLET PO SCH (10:38)
[2020-08-04] MEDS: GLIMEPIRIDE 2 MG TABLET PO SCH ×2 (10:39→17:52)
[2020-08-04] MEDS: METOCLOPRAMIDE 5 MG TABLET PO SCH ×3 (10:39→21:38)
[2020-08-04] MEDS: INSULIN REGULAR 100 UNIT/ML SUBCUT SCH ×4 (10:51→22:26)
[2020-08-04] MEDS: cloNIDine 0.1 MG TABLET PO PRN ×2 (12:09→18:16)
[2020-08-04] MEDS: ALBUMIN 25% 25 GM/100 ML VIAL IV SCH (17:53)
[2020-08-04] MEDS: GABAPENTIN 300 MG CAPSULE PO SCH (21:38)
[2020-08-04] MEDS: OLANZapine 5 MG TABLET PO SCH (21:38)
[2020-08-04] MEDS: ROSUVASTATIN 10 MG TABLET PO SCH (21:38)
[2020-08-04] MEDS: AZITHROMYCIN INJ 500 MG in SODIUM CHLORIDE 0.9% 250 ML IV SCH (22:25)
[2020-08-05] MEDS: ALBUMIN 25% 25 GM/100 ML VIAL IV SCH ×3 (01:10→17:01)
[2020-08-05] MEDS: ALBUTEROL/IPRATROPIUM 3 ML NEB RESP TX SCH ×4 (01:20→18:53)
[2020-08-05 05:09] LABS: Basophils % 0.8 % (0.0-0.8); Eosinophils # 0.1 10*3/uL (0.0-0.87); Eosinophils % 2.8 % (0.00-10.9); Hematocrit 34.9 VOL% (35.7-47.0); Hemoglobin 10.3 GM/DL (12.0-16.0); Immature Granulocytes % 0.4 %; Immature Granulocytes Absolute 0.02 #; Lymphocytes # 1.1 10*3/uL (1.4-4.0); Lymphocytes % 22.8 % (21.3-54.2); Mean Corpuscular HGB Conc 29.5 GM/DL (32-36); Mean Corpuscular Volume 86.4 FL (87-102); Mean Platelet Volume 11.3 FL (9.6-12.0); Monocytes % 9.6 % (1.7-12.7); Neutrophils % 63.6 % (38.7-73.9); Platelet Count 141 T/CUMM (130-400); Red Blood Count 4.04 MC/CUMM (3.8-5.5); Red Cell Distribution Width 15.7 % (9.3-17.3)
[2020-08-05 05:28] LABS: Albumin 2.9 G/DL (3.4-5.0); Bilirubin,Total 0.7 MG/DL (0.2-1.0); Calcium 8.5 MG/DL (8.5-10.1); Osmolality,Calculated 298.6 MOS/KG (273-304); Potassium 4.6 MMOL/L (3.5-5.1); Total Protein 5.6 G/DL (6.4-8.2)
[2020-08-05] MEDS: INSULIN REGULAR 100 UNIT/ML SUBCUT SCH ×4 (08:10→21:07)
[2020-08-05] MEDS ORDERED: FUROSEMIDE 20 MG/2 ML VIAL IV ONE (08:34)
[2020-08-05] MEDS: POLYETHYLENE GLYCOL POWDER 17 GM PACK PO SCH (09:14)
[2020-08-05] MEDS: cloNIDine 0.1 MG TABLET PO SCH ×2 (09:14→20:16)
[2020-08-05] MEDS: POTASSIUM CHLORIDE 10 MEQ TABLET PO SCH ×2 (09:15→20:17)
[2020-08-05] MEDS: DOCUSATE SODIUM 100 MG CAPSULE PO PRN (09:15)
[2020-08-05] MEDS: LORATADINE 10 MG TABLET PO SCH (09:15)
[2020-08-05] MEDS: ASPIRIN EC 325 MG TABLET PO SCH (09:15)
[2020-08-05] MEDS: METOCLOPRAMIDE 5 MG TABLET PO SCH ×3 (09:15→20:17)
[2020-08-05] MEDS: FERROUS SULFATE 325 MG TABLET PO SCH (09:15)
[2020-08-05] MEDS: ESCITALOPRAM 10 MG TABLET PO SCH (09:15)
[2020-08-05] MEDS: MAGNESIUM OXIDE 400 MG TABLET PO SCH (09:15)
[2020-08-05] MEDS: GLIMEPIRIDE 2 MG TABLET PO SCH ×2 (09:22→17:01)
[2020-08-05] MEDS ORDERED: FUROSEMIDE 40 MG TABLET PO SCH (10:00)
[2020-08-05] MEDS: cloNIDine 0.1 MG TABLET PO PRN (17:55)
[2020-08-05] MEDS: AZITHROMYCIN INJ 500 MG in SODIUM CHLORIDE 0.9% 250 ML IV SCH (20:16)
[2020-08-05] MEDS: GABAPENTIN 300 MG CAPSULE PO SCH (20:16)
[2020-08-05] MEDS: OLANZapine 5 MG TABLET PO SCH (20:17)
[2020-08-05] MEDS: ROSUVASTATIN 10 MG TABLET PO SCH (20:17)
[2020-08-06] MEDS: ALBUMIN 25% 25 GM/100 ML VIAL IV SCH ×3 (00:03→16:18)
[2020-08-06] MEDS: ALBUTEROL/IPRATROPIUM 3 ML NEB RESP TX SCH ×4 (00:28→19:04)
[2020-08-06 04:00] LABS: Basophils % 0.7 % (0.0-0.8); Eosinophils # 0.1 10*3/uL (0.0-0.87); Eosinophils % 2.3 % (0.00-10.9); Hematocrit 33.9 VOL% (35.7-47.0); Immature Granulocytes % 0.2 %; Immature Granulocytes Absolute 0.01 #; Lymphocytes # 1.2 10*3/uL (1.4-4.0); Lymphocytes % 20.2 % (21.3-54.2); Mean Corpuscular HGB Conc 29.5 GM/DL (32-36); Mean Corpuscular Volume 88.1 FL (87-102); Mean Platelet Volume 11.3 FL (9.6-12.0); Monocytes % 10.5 % (1.7-12.7); Neutrophils % 66.1 % (38.7-73.9); Platelet Count 129 T/CUMM (130-400); Red Blood Count 3.85 MC/CUMM (3.8-5.5); Red Cell Distribution Width 15.9 % (9.3-17.3)
[2020-08-06 04:18] LABS: Calcium 8.5 MG/DL (8.5-10.1); Osmolality,Calculated 293.8 MOS/KG (273-304); Potassium 4.8 MMOL/L (3.5-5.1)
[2020-08-06] MEDS: DEXTROSE 50% 25 GM/50 ML VIAL IV PRN (04:30)
[2020-08-06] MEDS: INSULIN REGULAR 100 UNIT/ML SUBCUT SCH ×4 (08:02→20:00)
[2020-08-06] MEDS: ASPIRIN EC 325 MG TABLET PO SCH (09:19)
[2020-08-06] MEDS: DOCUSATE SODIUM 100 MG CAPSULE PO PRN (09:19)
[2020-08-06] MEDS: LORATADINE 10 MG TABLET PO SCH (09:19)
[2020-08-06] MEDS: POTASSIUM CHLORIDE 10 MEQ TABLET PO SCH ×2 (09:19→20:45)
[2020-08-06] MEDS: MAGNESIUM OXIDE 400 MG TABLET PO SCH (09:19)
[2020-08-06] MEDS: FERROUS SULFATE 325 MG TABLET PO SCH (09:19)
[2020-08-06] MEDS: POLYETHYLENE GLYCOL POWDER 17 GM PACK PO SCH (09:19)
[2020-08-06] MEDS: GLIMEPIRIDE 2 MG TABLET PO SCH ×2 (09:20→16:18)
[2020-08-06] MEDS: METOCLOPRAMIDE 5 MG TABLET PO SCH ×3 (09:20→20:44)
[2020-08-06] MEDS: cloNIDine 0.1 MG TABLET PO SCH ×2 (09:20→20:45)
[2020-08-06] MEDS: ESCITALOPRAM 10 MG TABLET PO SCH (09:29)
[2020-08-06] MEDS: cloNIDine 0.1 MG TABLET PO PRN ×2 (12:52→16:32)
[2020-08-06] MEDS ORDERED: FUROSEMIDE 40 MG/4 ML VIAL IV ONE ×2 (17:01→18:56)
[2020-08-06 17:29] LABS: Basophils % 0.4 % (0.0-0.8); Eosinophils # 0.1 10*3/uL (0.0-0.87); Hematocrit 35.4 VOL% (35.7-47.0); Hemoglobin 10.4 GM/DL (12.0-16.0); Immature Granulocytes Absolute 0.07 #; Lymphocytes # 0.7 10*3/uL (1.4-4.0); Lymphocytes % 9.4 % (21.3-54.2); Mean Corpuscular HGB Conc 29.4 GM/DL (32-36); Mean Corpuscular Volume 88.1 FL (87-102); Mean Platelet Volume 10.9 FL (9.6-12.0); Neutrophils % 78.2 % (38.7-73.9); Platelet Count 141 T/CUMM (130-400); Red Blood Count 4.02 MC/CUMM (3.8-5.5); Red Cell Distribution Width 15.9 % (9.3-17.3); White Blood Count 7.2 T/CUMM (4-12)
[2020-08-06 17:44] LABS: Blood Urea Nitrogen 41 MG/DL (7-18); Carbon Dioxide 30 MMOL/L (21-32); Estimated Glom Filtration Rate 37 ML/MIN; Glucose 159 MG/DL (74-106); Osmolality,Calculated 295.1 MOS/KG (273-304); Potassium 4.8 MMOL/L (3.5-5.1); Sodium 142 MMOL/L (136-145)
[2020-08-06] MEDS ORDERED: hydrALAZINE 20 MG/1 ML VIAL IV ONE (18:58)
[2020-08-06 20:11] LABS: ABG Base Excess 4.3 MMOL/L (-2.5-2.5); ABG HCO3 28.3 MMOL/L (20-26); ABG Oxygen Saturation 99.6 % (95-100); ABG PCO2 63.1 MM HG (35-48); ABG PH 7.317 (7.35-7.45); ABG TCO2 29.3 MMOL/L (23-27)
[2020-08-06] MEDS: AZITHROMYCIN INJ 500 MG in SODIUM CHLORIDE 0.9% 250 ML IV SCH (20:41)
[2020-08-06] MEDS: OLANZapine 5 MG TABLET PO SCH (20:44)
[2020-08-06] MEDS: ROSUVASTATIN 10 MG TABLET PO SCH (20:45)
[2020-08-06] MEDS: GABAPENTIN 300 MG CAPSULE PO SCH (20:45)
[2020-08-07] MEDS: ALBUMIN 25% 25 GM/100 ML VIAL IV SCH ×3 (01:02→16:21)
[2020-08-07 01:31] LABS: ABG Base Excess 2.4 MMOL/L (-2.5-2.5); ABG HCO3 26.6 MMOL/L (20-26); ABG Oxygen Saturation 98.9 % (95-100); ABG PCO2 55.9 MM HG (35-48); ABG PH 7.329 (7.35-7.45); Allen Test Positive; Pt O2 Delivery Device BIPAP
[2020-08-07] MEDS: ALBUTEROL/IPRATROPIUM 3 ML NEB RESP TX SCH ×4 (01:48→19:24)
[2020-08-07 05:44] LABS: Basophils % 0.6 % (0.0-0.8); Eosinophils % 0.3 % (0.00-10.9); Hematocrit 32.3 VOL% (35.7-47.0); Hemoglobin 9.7 GM/DL (12.0-16.0); Immature Granulocytes % 1.1 %; Immature Granulocytes Absolute 0.07 #; Lymphocytes # 0.9 10*3/uL (1.4-4.0); Mean Corpuscular Volume 86.6 FL (87-102); Mean Platelet Volume 12.6 FL (9.6-12.0); Platelet Count 119 T/CUMM (130-400); Red Blood Count 3.73 MC/CUMM (3.8-5.5); Red Cell Distribution Width 15.8 % (9.3-17.3); White Blood Count 6.7 T/CUMM (4-12)
[2020-08-07 05:56] LABS: Calcium 8.9 MG/DL (8.5-10.1); Osmolality,Calculated 295.3 MOS/KG (273-304); Potassium 4.9 MMOL/L (3.5-5.1)
[2020-08-07] MEDS: INSULIN REGULAR 100 UNIT/ML SUBCUT SCH ×4 (08:00→20:28)
[2020-08-07 08:27] LABS: ABG Base Excess 4.3 MMOL/L (-2.5-2.5); ABG HCO3 28.2 MMOL/L (20-26); ABG Oxygen Saturation 97.7 % (95-100); ABG PCO2 55.4 MM HG (35-48); ABG PH 7.355 (7.35-7.45); ABG TCO2 28.3 MMOL/L (23-27)
[2020-08-07] MEDS ORDERED: FUROSEMIDE 40 MG/4 ML VIAL IV SCH (09:00)
[2020-08-07] MEDS: ASPIRIN EC 325 MG TABLET PO SCH (10:27)
[2020-08-07] MEDS: GLIMEPIRIDE 2 MG TABLET PO SCH ×2 (10:27→16:21)
[2020-08-07] MEDS: FERROUS SULFATE 325 MG TABLET PO SCH (10:27)
[2020-08-07] MEDS: DOCUSATE SODIUM 100 MG CAPSULE PO PRN (10:27)
[2020-08-07] MEDS: POTASSIUM CHLORIDE 10 MEQ TABLET PO SCH ×2 (10:27→20:28)
[2020-08-07] MEDS: METOCLOPRAMIDE 5 MG TABLET PO SCH ×3 (10:27→20:28)
[2020-08-07] MEDS: LORATADINE 10 MG TABLET PO SCH (10:28)
[2020-08-07] MEDS: MAGNESIUM OXIDE 400 MG TABLET PO SCH (10:28)
[2020-08-07] MEDS: cloNIDine 0.1 MG TABLET PO SCH ×2 (10:31→20:29)
[2020-08-07] MEDS: POLYETHYLENE GLYCOL POWDER 17 GM PACK PO SCH (10:31)
[2020-08-07] MEDS: ESCITALOPRAM 10 MG TABLET PO SCH (10:36)
[2020-08-07] MEDS: methylPREDNISolone SOD SUC 40 MG/1 ML VIAL IV SCH ×2 (10:36→16:23)
[2020-08-07] MEDS: FUROSEMIDE 40 MG/4 ML VIAL IV SCH (16:23)
[2020-08-07] MEDS: AZITHROMYCIN INJ 500 MG in SODIUM CHLORIDE 0.9% 250 ML IV SCH (20:27)
[2020-08-07] MEDS: OLANZapine 5 MG TABLET PO SCH (20:28)
[2020-08-07] MEDS: ROSUVASTATIN 10 MG TABLET PO SCH (20:28)
[2020-08-07] MEDS: GABAPENTIN 300 MG CAPSULE PO SCH (20:29)
[2020-08-07] MEDS ORDERED: LORazepam 2 MG/1 ML VIAL IV PRN (21:16)
[2020-08-08] MEDS: ALBUMIN 25% 25 GM/100 ML VIAL IV SCH ×3 (00:26→15:58)
[2020-08-08] MEDS: methylPREDNISolone SOD SUC 40 MG/1 ML VIAL IV SCH ×3 (00:26→17:33)
[2020-08-08] MEDS: ALBUTEROL/IPRATROPIUM 3 ML NEB RESP TX SCH ×4 (00:46→20:15)
[2020-08-08 07:27] LABS: Albumin 4.4 G/DL (3.4-5.0); Bilirubin,Direct 0.23 MG/DL (0.0-0.20); Bilirubin,Indirect 0.9 MG/DL (0.0-1.0); Bilirubin,Total 1.1 MG/DL (0.2-1.0); Total Protein 7.2 G/DL (6.4-8.2)
[2020-08-08 07:31] LABS: Calcium 8.7 MG/DL (8.5-10.1); Osmolality,Calculated 304.7 MOS/KG (273-304); Potassium 5.7 MMOL/L (3.5-5.1)
[2020-08-08] MEDS ORDERED: SODIUM POLYSTYRENE SULFATE 15 GM/60 ML BOTTLE PO ONE (07:58)
[2020-08-08] MEDS: METOCLOPRAMIDE 5 MG TABLET PO SCH ×3 (09:07→20:46)
[2020-08-08] MEDS: GLIMEPIRIDE 2 MG TABLET PO SCH ×2 (09:07→17:31)
[2020-08-08] MEDS: ESCITALOPRAM 10 MG TABLET PO SCH (09:07)
[2020-08-08] MEDS: cloNIDine 0.1 MG TABLET PO SCH ×2 (09:08→20:45)
[2020-08-08] MEDS: ASPIRIN EC 325 MG TABLET PO SCH (09:08)
[2020-08-08] MEDS: FERROUS SULFATE 325 MG TABLET PO SCH (09:08)
[2020-08-08] MEDS: LORATADINE 10 MG TABLET PO SCH (09:09)
[2020-08-08] MEDS: INSULIN REGULAR 100 UNIT/ML SUBCUT SCH ×4 (09:09→21:45)
[2020-08-08] MEDS: MAGNESIUM OXIDE 400 MG TABLET PO SCH (09:11)
[2020-08-08] MEDS: POTASSIUM CHLORIDE 10 MEQ TABLET PO SCH ×2 (09:11→20:45)
[2020-08-08] MEDS: POLYETHYLENE GLYCOL POWDER 17 GM PACK PO SCH (09:11)
[2020-08-08] MEDS: cloNIDine 0.1 MG TABLET PO PRN ×2 (09:52→15:56)
[2020-08-08] MEDS: FUROSEMIDE 40 MG/4 ML VIAL IV SCH (10:02)
[2020-08-08] MEDS: SODIUM CHLORIDE 0.9% 1,000 ML IV SCH (10:32)
[2020-08-08] MEDS: LACTULOSE 20 GM/30 ML UDCUP PO SCH ×2 (15:57→22:21)
[2020-08-08] MEDS ORDERED: SODIUM PHOSPHATE ENEMA 133 ML BOTTLE RECTAL PRN (17:09)
[2020-08-08] MEDS: hydrALAZINE 20 MG/1 ML VIAL IV PRN (17:31)
[2020-08-08] MEDS: NITROGLYCERIN 2% OINT 1 INCH/GM PACK TOP SCH (19:20)
[2020-08-08] MEDS: AZITHROMYCIN INJ 500 MG in SODIUM CHLORIDE 0.9% 250 ML IV SCH (20:45)
[2020-08-08] MEDS: GABAPENTIN 300 MG CAPSULE PO SCH (20:45)
[2020-08-08] MEDS: ROSUVASTATIN 10 MG TABLET PO SCH (20:45)
[2020-08-08] MEDS: OLANZapine 5 MG TABLET PO SCH (20:46)
[2020-08-08] MEDS ORDERED: NITROGLYCERIN 2% OINT 1 INCH/GM PACK TOP SCH (21:00)
[2020-08-08] MEDS: MEROPENEM 500 MG in SODIUM CHLORIDE 0.9% 100 ML IV SCH (22:00)
[2020-08-08] MEDS ORDERED: AZITHROMYCIN 250 MG TABLET PO ONE (22:04)
[2020-08-09] MEDS: cloNIDine 0.1 MG TABLET PO SCH ×4 (00:19→22:08)
[2020-08-09] MEDS ORDERED: INSULIN REGULAR 100 UNIT/ML SUBCUT ONE (00:29)
[2020-08-09] MEDS: ALBUTEROL/IPRATROPIUM 3 ML NEB RESP TX SCH ×4 (00:45→19:18)
[2020-08-09] MEDS: SODIUM CHLORIDE 0.9% 1,000 ML IV SCH ×3 (02:16→18:01)
[2020-08-09] MEDS: methylPREDNISolone SOD SUC 40 MG/1 ML VIAL IV SCH ×3 (02:16→17:48)
[2020-08-09] MEDS: MEROPENEM 500 MG in SODIUM CHLORIDE 0.9% 100 ML IV SCH ×2 (02:16→17:44)
[2020-08-09 05:41] LABS: Basophils % 0.1 % (0.0-0.8); Hematocrit 31.2 VOL% (35.7-47.0); Hemoglobin 9.8 GM/DL (12.0-16.0); Immature Granulocytes % 1.2 %; Immature Granulocytes Absolute 0.12 #; Lymphocytes # 0.3 10*3/uL (1.4-4.0); Lymphocytes % 3.3 % (21.3-54.2); Mean Corpuscular HGB Conc 31.4 GM/DL (32-36); Mean Corpuscular Volume 83.6 FL (87-102); Mean Platelet Volume 11.9 FL (9.6-12.0); Monocytes % 6.3 % (1.7-12.7); Neutrophils % 89.1 % (38.7-73.9); Platelet Count 139 T/CUMM (130-400); Red Blood Count 3.73 MC/CUMM (3.8-5.5); Red Cell Distribution Width 15.5 % (9.3-17.3); White Blood Count 9.6 T/CUMM (4-12)
[2020-08-09 06:06] LABS: Hypochromasia 1+; Lymphocytes 4 % (20-55); Microcytosis 1+; Platelet Estimate Adequate; Segmented Neutrophils 88 % (50-85); Total Cells Counted 100
[2020-08-09 06:13] LABS: Albumin 4.2 G/DL (3.4-5.0); Bilirubin,Total 0.7 MG/DL (0.2-1.0); Calcium 8.8 MG/DL (8.5-10.1); Osmolality,Calculated 304.8 MOS/KG (273-304); Potassium 5.1 MMOL/L (3.5-5.1); Total Protein 6.9 G/DL (6.4-8.2)
[2020-08-09] MEDS ORDERED: INSULIN GLARGINE 100 UNIT/ML SUBCUT SCH (09:00)
[2020-08-09] MEDS ORDERED: FUROSEMIDE 20 MG/2 ML VIAL IV SCH (09:00)
[2020-08-09] MEDS: POLYETHYLENE GLYCOL POWDER 17 GM PACK PO SCH ×2 (10:13→21:44)
[2020-08-09] MEDS: NITROGLYCERIN 2% OINT 1 INCH/GM PACK TOP SCH ×2 (10:14→22:09)
[2020-08-09] MEDS: LACTULOSE 20 GM/30 ML UDCUP PO SCH ×2 (10:14→21:44)
[2020-08-09] MEDS: GLIMEPIRIDE 2 MG TABLET PO SCH ×2 (10:15→17:44)
[2020-08-09] MEDS: POTASSIUM CHLORIDE 10 MEQ TABLET PO SCH (10:15)
[2020-08-09] MEDS: ASPIRIN EC 325 MG TABLET PO SCH (10:15)
[2020-08-09] MEDS: LORATADINE 10 MG TABLET PO SCH (10:15)
[2020-08-09] MEDS: MAGNESIUM OXIDE 400 MG TABLET PO SCH (10:16)
[2020-08-09] MEDS: METOCLOPRAMIDE 5 MG TABLET PO SCH ×3 (10:16→22:46)
[2020-08-09] MEDS: FERROUS SULFATE 325 MG TABLET PO SCH (10:16)
[2020-08-09] MEDS: hydrALAZINE 20 MG/1 ML VIAL IV PRN (10:18)
[2020-08-09] MEDS: INSULIN REGULAR 100 UNIT/ML SUBCUT SCH ×4 (10:19→22:10)
[2020-08-09] MEDS: ALUMINUM/MAGNES/SIMETH MAX STR 30 ML UDCUP PO PRN (17:34)
[2020-08-09] MEDS: ONDANSETRON 4 MG/2 ML VIAL IV PRN (17:34)
[2020-08-09] MEDS: AZITHROMYCIN INJ 500 MG in SODIUM CHLORIDE 0.9% 250 ML IV SCH (20:30)
[2020-08-09] MEDS: GABAPENTIN 300 MG CAPSULE PO SCH (22:09)
[2020-08-09] MEDS: OLANZapine 5 MG TABLET PO SCH (22:09)
[2020-08-10] MEDS: methylPREDNISolone SOD SUC 40 MG/1 ML VIAL IV SCH ×3 (01:25→17:17)
[2020-08-10] MEDS: MEROPENEM 500 MG in SODIUM CHLORIDE 0.9% 100 ML IV SCH ×2 (01:26→14:59)
[2020-08-10] MEDS: ALBUTEROL/IPRATROPIUM 3 ML NEB RESP TX SCH ×4 (02:15→19:20)
[2020-08-10 06:28] LABS: Basophils % 0.1 % (0.0-0.8); Hematocrit 32.5 VOL% (35.7-47.0); Immature Granulocytes % 2.2 %; Immature Granulocytes Absolute 0.18 #; Lymphocytes # 0.4 10*3/uL (1.4-4.0); Lymphocytes % 4.9 % (21.3-54.2); Mean Corpuscular HGB Conc 30.8 GM/DL (32-36); Mean Corpuscular Volume 84.2 FL (87-102); Mean Platelet Volume 11.6 FL (9.6-12.0); Monocytes % 2.6 % (1.7-12.7); Neutrophils % 90.2 % (38.7-73.9); Platelet Count 145 T/CUMM (130-400); Red Blood Count 3.86 MC/CUMM (3.8-5.5); Red Cell Distribution Width 15.5 % (9.3-17.3)
[2020-08-10] MEDS ORDERED: LACTULOSE 20 GM/30 ML UDCUP PO PRN (06:45)
[2020-08-10 06:48] LABS: Albumin 3.7 G/DL (3.4-5.0); Bilirubin,Total 0.9 MG/DL (0.2-1.0); Calcium 8.7 MG/DL (8.5-10.1); Osmolality,Calculated 307.5 MOS/KG (273-304); Potassium 5.5 MMOL/L (3.5-5.1); Total Protein 6.3 G/DL (6.4-8.2); Uric Acid 8.6 MG/DL (2.6-6.0)
[2020-08-10 06:50] LABS: Lymphocytes 3 % (20-55); Platelet Estimate Adequate; Segmented Neutrophils 91 % (50-85); Total Cells Counted 100
[2020-08-10 06:51] LABS: Hypochromasia Slight; Microcytosis Slight
[2020-08-10] MEDS ORDERED: INSULIN GLARGINE 100 UNIT/ML SUBCUT SCH (09:00)
[2020-08-10] MEDS ORDERED: POTASSIUM CHLORIDE 10 MEQ TABLET PO SCH (09:00)
[2020-08-10] MEDS: METOCLOPRAMIDE 5 MG TABLET PO SCH ×3 (10:23→21:05)
[2020-08-10] MEDS: POLYETHYLENE GLYCOL POWDER 17 GM PACK PO SCH ×2 (10:23→21:10)
[2020-08-10] MEDS: ASPIRIN EC 325 MG TABLET PO SCH (10:23)
[2020-08-10] MEDS: cloNIDine 0.1 MG TABLET PO SCH ×3 (10:23→21:06)
[2020-08-10] MEDS: MAGNESIUM OXIDE 400 MG TABLET PO SCH (10:23)
[2020-08-10] MEDS: LORATADINE 10 MG TABLET PO SCH (10:24)
[2020-08-10] MEDS: GLIMEPIRIDE 2 MG TABLET PO SCH ×2 (10:24→17:20)
[2020-08-10] MEDS: NITROGLYCERIN 2% OINT 1 INCH/GM PACK TOP SCH ×2 (10:24→21:07)
[2020-08-10] MEDS: FERROUS SULFATE 325 MG TABLET PO SCH (10:24)
[2020-08-10] MEDS: INSULIN REGULAR 100 UNIT/ML SUBCUT SCH ×4 (10:25→21:17)
[2020-08-10] MEDS: SODIUM CHLORIDE 0.9% 1,000 ML IV SCH (10:27)
[2020-08-10] MEDS ORDERED: SODIUM POLYSTYRENE SULFATE 15 GM/60 ML BOTTLE PO ONE (14:12)
[2020-08-10] MEDS: GABAPENTIN 300 MG CAPSULE PO SCH (21:05)
[2020-08-10] MEDS: OLANZapine 5 MG TABLET PO SCH (21:06)
[2020-08-10] MEDS: AZITHROMYCIN INJ 500 MG in SODIUM CHLORIDE 0.9% 250 ML IV SCH (21:11)
[2020-08-11] MEDS: ALBUTEROL/IPRATROPIUM 3 ML NEB RESP TX SCH ×4 (00:48→19:22)
[2020-08-11] MEDS: methylPREDNISolone SOD SUC 40 MG/1 ML VIAL IV SCH ×4 (02:19→21:30)
[2020-08-11] MEDS: MEROPENEM 500 MG in SODIUM CHLORIDE 0.9% 100 ML IV SCH ×2 (02:19→16:02)
[2020-08-11] MEDS: SODIUM CHLORIDE 0.9% 1,000 ML IV SCH (04:41)
[2020-08-11 06:52] LABS: Albumin 3.2 G/DL (3.4-5.0); Bilirubin,Total 0.5 MG/DL (0.2-1.0); Calcium 8.5 MG/DL (8.5-10.1); Osmolality,Calculated 312.5 MOS/KG (273-304); Potassium 5.5 MMOL/L (3.5-5.1)
[2020-08-11] MEDS ORDERED: INSULIN GLARGINE 100 UNIT/ML SUBCUT SCH (09:00)
[2020-08-11] MEDS: ASPIRIN EC 325 MG TABLET PO SCH (09:02)
[2020-08-11] MEDS: GLIMEPIRIDE 2 MG TABLET PO SCH ×2 (09:02→18:29)
[2020-08-11] MEDS: METOCLOPRAMIDE 5 MG TABLET PO SCH ×3 (09:02→21:29)
[2020-08-11] MEDS: cloNIDine 0.1 MG TABLET PO SCH ×3 (09:02→21:29)
[2020-08-11] MEDS: FERROUS SULFATE 325 MG TABLET PO SCH (09:03)
[2020-08-11] MEDS: LORATADINE 10 MG TABLET PO SCH (09:03)
[2020-08-11] MEDS: MAGNESIUM OXIDE 400 MG TABLET PO SCH (09:03)
[2020-08-11] MEDS: NITROGLYCERIN 2% OINT 1 INCH/GM PACK TOP SCH ×2 (09:03→21:30)
[2020-08-11] MEDS: POLYETHYLENE GLYCOL POWDER 17 GM PACK PO SCH ×3 (09:03→21:44)
[2020-08-11] MEDS: INSULIN GLARGINE 100 UNIT/ML SUBCUT SCH (09:04)
[2020-08-11] MEDS: INSULIN REGULAR 100 UNIT/ML SUBCUT SCH ×4 (09:13→21:30)
[2020-08-11] MEDS: ALUMINUM/MAGNES/SIMETH MAX STR 30 ML UDCUP PO PRN (12:55)
[2020-08-11] MEDS: ONDANSETRON 4 MG/2 ML VIAL IV PRN (12:55)
[2020-08-11] MEDS: OLANZapine 5 MG TABLET PO SCH (21:29)
[2020-08-11] MEDS: GABAPENTIN 300 MG CAPSULE PO SCH (21:30)
[2020-08-11] MEDS: AZITHROMYCIN INJ 500 MG in SODIUM CHLORIDE 0.9% 250 ML IV SCH (21:31)
[2020-08-12] MEDS: ALBUTEROL/IPRATROPIUM 3 ML NEB RESP TX SCH ×4 (00:09→19:44)
[2020-08-12] MEDS: MEROPENEM 500 MG in SODIUM CHLORIDE 0.9% 100 ML IV SCH ×2 (01:39→13:07)
[2020-08-12 06:13] LABS: Basophils % 0.1 % (0.0-0.8); Hematocrit 33.6 VOL% (35.7-47.0); Hemoglobin 10.4 GM/DL (12.0-16.0); Immature Granulocytes % 1.8 %; Immature Granulocytes Absolute 0.17 #; Lymphocytes # 0.4 10*3/uL (1.4-4.0); Lymphocytes % 4.7 % (21.3-54.2); Mean Platelet Volume 12.2 FL (9.6-12.0); Monocytes % 4.5 % (1.7-12.7); Neutrophils % 88.9 % (38.7-73.9); Platelet Count 154 T/CUMM (130-400); Red Cell Distribution Width 15.4 % (9.3-17.3); White Blood Count 9.4 T/CUMM (4-12)
[2020-08-12 06:25] LABS: Albumin 3.2 G/DL (3.4-5.0); Bilirubin,Total 0.7 MG/DL (0.2-1.0); Calcium 8.9 MG/DL (8.5-10.1); Osmolality,Calculated 314.5 MOS/KG (273-304); Potassium 5.4 MMOL/L (3.5-5.1); Total Protein 5.7 G/DL (6.4-8.2)
[2020-08-12] MEDS: SODIUM CHLORIDE 0.9% 1,000 ML IV SCH (07:34)
[2020-08-12] MEDS: ASPIRIN EC 325 MG TABLET PO SCH (09:45)
[2020-08-12] MEDS: cloNIDine 0.1 MG TABLET PO SCH ×3 (09:45→21:38)
[2020-08-12] MEDS: METOCLOPRAMIDE 5 MG TABLET PO SCH ×3 (09:45→21:38)
[2020-08-12] MEDS: LORATADINE 10 MG TABLET PO SCH (09:45)
[2020-08-12] MEDS: POLYETHYLENE GLYCOL POWDER 17 GM PACK PO SCH ×2 (09:45→21:38)
[2020-08-12] MEDS: MAGNESIUM OXIDE 400 MG TABLET PO SCH (09:45)
[2020-08-12] MEDS: GLIMEPIRIDE 2 MG TABLET PO SCH ×2 (09:45→16:16)
[2020-08-12] MEDS: FERROUS SULFATE 325 MG TABLET PO SCH (09:45)
[2020-08-12] MEDS: INSULIN REGULAR 100 UNIT/ML SUBCUT SCH ×4 (09:46→21:38)
[2020-08-12] MEDS: NITROGLYCERIN 2% OINT 1 INCH/GM PACK TOP SCH ×2 (09:46→21:37)
[2020-08-12] MEDS: methylPREDNISolone SOD SUC 40 MG/1 ML VIAL IV SCH ×2 (09:46→21:39)
[2020-08-12] MEDS: INSULIN GLARGINE 100 UNIT/ML SUBCUT SCH (09:47)
[2020-08-12] MEDS: ONDANSETRON 4 MG/2 ML VIAL IV PRN (16:17)
[2020-08-12] MEDS: AZITHROMYCIN INJ 500 MG in SODIUM CHLORIDE 0.9% 250 ML IV SCH (21:36)
[2020-08-12] MEDS: GABAPENTIN 300 MG CAPSULE PO SCH (21:37)
[2020-08-12] MEDS: OLANZapine 5 MG TABLET PO SCH (21:38)
[2020-08-13] MEDS: MEROPENEM 500 MG in SODIUM CHLORIDE 0.9% 100 ML IV SCH ×2 (01:22→16:10)
[2020-08-13] MEDS: ALBUTEROL/IPRATROPIUM 3 ML NEB RESP TX SCH ×4 (01:38→19:31)
[2020-08-13 05:22] LABS: Albumin 3.1 G/DL (3.4-5.0); Bilirubin,Total 0.6 MG/DL (0.2-1.0); Osmolality,Calculated 315.4 MOS/KG (273-304); Potassium 5.6 MMOL/L (3.5-5.1); Total Protein 5.6 G/DL (6.4-8.2)
[2020-08-13] MEDS: DEXTROSE 50% 25 GM/50 ML VIAL IV PRN (06:09)
[2020-08-13] MEDS: ASPIRIN EC 325 MG TABLET PO SCH (09:13)
[2020-08-13] MEDS: methylPREDNISolone SOD SUC 40 MG/1 ML VIAL IV SCH ×2 (09:13→21:58)
[2020-08-13] MEDS: INSULIN GLARGINE 100 UNIT/ML SUBCUT SCH (09:13)
[2020-08-13] MEDS: METOCLOPRAMIDE 5 MG TABLET PO SCH ×3 (09:14→21:57)
[2020-08-13] MEDS: MAGNESIUM OXIDE 400 MG TABLET PO SCH (09:14)
[2020-08-13] MEDS: LORATADINE 10 MG TABLET PO SCH (09:15)
[2020-08-13] MEDS: FERROUS SULFATE 325 MG TABLET PO SCH (09:15)
[2020-08-13] MEDS: cloNIDine 0.1 MG TABLET PO SCH ×3 (09:15→21:57)
[2020-08-13] MEDS: GLIMEPIRIDE 2 MG TABLET PO SCH ×2 (09:16→17:10)
[2020-08-13] MEDS: NITROGLYCERIN 2% OINT 1 INCH/GM PACK TOP SCH ×2 (09:16→21:57)
[2020-08-13] MEDS: POLYETHYLENE GLYCOL POWDER 17 GM PACK PO SCH ×2 (09:18→21:58)
[2020-08-13] MEDS: INSULIN REGULAR 100 UNIT/ML SUBCUT SCH ×4 (10:54→21:58)
[2020-08-13 13:11] LABS: Basophils % 0.1 % (0.0-0.8); Hematocrit 36.4 VOL% (35.7-47.0); Hemoglobin 11.8 GM/DL (12.0-16.0); Immature Granulocytes % 1.2 %; Immature Granulocytes Absolute 0.22 #; Lymphocytes # 0.5 10*3/uL (1.4-4.0); Lymphocytes % 2.5 % (21.3-54.2); Mean Corpuscular HGB Conc 32.4 GM/DL (32-36); Mean Corpuscular Volume 80.9 FL (87-102); Mean Platelet Volume 11.5 FL (9.6-12.0); Monocytes % 3.9 % (1.7-12.7); Neutrophils % 92.3 % (38.7-73.9); Platelet Count 157 T/CUMM (130-400)
[2020-08-13 13:50] LABS: Band Neutrophils 1 % (0-10); Hypochromasia 1+; Platelet Estimate Adequate; Segmented Neutrophils 95 % (50-85); Target Cells Slight; Total Cells Counted 100
[2020-08-13] MEDS: OLANZapine 5 MG TABLET PO SCH (21:57)
[2020-08-13] MEDS: GABAPENTIN 300 MG CAPSULE PO SCH (21:57)
[2020-08-13] MEDS: AZITHROMYCIN INJ 500 MG in SODIUM CHLORIDE 0.9% 250 ML IV SCH (21:58)
[2020-08-14] MEDS: ALBUTEROL/IPRATROPIUM 3 ML NEB RESP TX SCH ×5 (00:39→18:54)
[2020-08-14] MEDS: MEROPENEM 500 MG in SODIUM CHLORIDE 0.9% 100 ML IV SCH ×2 (02:33→18:12)
[2020-08-14 05:16] LABS: Basophils % 0.1 % (0.0-0.8); Hematocrit 30.8 VOL% (35.7-47.0); Immature Granulocytes % 1.5 %; Immature Granulocytes Absolute 0.23 #; Lymphocytes # 0.4 10*3/uL (1.4-4.0); Mean Corpuscular HGB Conc 31.8 GM/DL (32-36); Mean Corpuscular Volume 82.4 FL (87-102); Mean Platelet Volume 11.4 FL (9.6-12.0); Neutrophils % 92.4 % (38.7-73.9); Platelet Count 136 T/CUMM (130-400); Red Blood Count 3.74 MC/CUMM (3.8-5.5); Red Cell Distribution Width 15.1 % (9.3-17.3); White Blood Count 14.9 T/CUMM (4-12)
[2020-08-14 05:19] LABS: Hemoglobin 9.8 GM/DL (12.0-16.0)
[2020-08-14 05:35] LABS: Hypochromasia Slight; Lymphocytes 3 % (20-55); Platelet Estimate Normal; Segmented Neutrophils 96 % (50-85); Total Cells Counted 100
[2020-08-14 05:51] LABS: Bilirubin,Total 0.4 MG/DL (0.2-1.0); Calcium 8.7 MG/DL (8.5-10.1); Osmolality,Calculated 316.5 MOS/KG (273-304)
[2020-08-14] MEDS: DEXTROSE 50% 25 GM/50 ML VIAL IV PRN (06:33)
[2020-08-14] MEDS: LORATADINE 10 MG TABLET PO SCH (09:01)
[2020-08-14] MEDS: cloNIDine 0.1 MG TABLET PO SCH ×3 (09:01→22:14)
[2020-08-14] MEDS: GLIMEPIRIDE 2 MG TABLET PO SCH ×2 (09:01→18:12)
[2020-08-14] MEDS: MAGNESIUM OXIDE 400 MG TABLET PO SCH (09:02)
[2020-08-14] MEDS: FERROUS SULFATE 325 MG TABLET PO SCH (09:02)
[2020-08-14] MEDS: ASPIRIN EC 325 MG TABLET PO SCH (09:02)
[2020-08-14] MEDS: METOCLOPRAMIDE 5 MG TABLET PO SCH ×3 (09:02→22:14)
[2020-08-14] MEDS: INSULIN REGULAR 100 UNIT/ML SUBCUT SCH ×3 (09:03→18:03)
[2020-08-14] MEDS: POLYETHYLENE GLYCOL POWDER 17 GM PACK PO SCH ×2 (09:03→22:14)
[2020-08-14] MEDS: INSULIN GLARGINE 100 UNIT/ML SUBCUT SCH (09:04)
[2020-08-14] MEDS: methylPREDNISolone SOD SUC 40 MG/1 ML VIAL IV SCH ×2 (09:06→22:14)
[2020-08-14] MEDS: NITROGLYCERIN 2% OINT 1 INCH/GM PACK TOP SCH ×2 (09:16→22:14)
[2020-08-14] MEDS: SODIUM CHLORIDE 0.9% 1,000 ML IV SCH ×2 (10:47→18:04)
[2020-08-14] MEDS ORDERED: SODIUM POLYSTYRENE SULFATE 15 GM/60 ML BOTTLE PO ONE (11:00)
[2020-08-14 15:10] LABS: Hepatitis B Core IgM Quant < 0.05 Index; Hepatitis B Surface Ag Quant < 0.10 Index; Hepatitis B Surface Ag Result Non-Reactive (NonReactive); Hepatitis C Virus Ab Quant 0.02 Index; Hepatitis C Virus Ab Result Non-Reactive (NonReactive)
[2020-08-14] MEDS ORDERED: HEPARIN 10,000 UNIT/10 ML VIAL IV SCH (15:45)
[2020-08-14] MEDS: OLANZapine 5 MG TABLET PO SCH (22:14)
[2020-08-14] MEDS: GABAPENTIN 300 MG CAPSULE PO SCH (22:14)
[2020-08-15] MEDS: AZITHROMYCIN INJ 500 MG in SODIUM CHLORIDE 0.9% 250 ML IV SCH ×2 (00:44→20:51)
[2020-08-15] MEDS: INSULIN REGULAR 100 UNIT/ML SUBCUT SCH ×5 (00:49→20:48)
[2020-08-15] MEDS: ALBUTEROL/IPRATROPIUM 3 ML NEB RESP TX SCH ×4 (01:18→19:04)
[2020-08-15] MEDS: MEROPENEM 500 MG in SODIUM CHLORIDE 0.9% 100 ML IV SCH ×2 (03:51→17:51)
[2020-08-15 06:07] LABS: Bilirubin,Total 0.5 MG/DL (0.2-1.0); Calcium 8.6 MG/DL (8.5-10.1); Osmolality,Calculated 314.1 MOS/KG (273-304); Total Protein 5.4 G/DL (6.4-8.2)
[2020-08-15 07:08] LABS: Basophils % 0.1 % (0.0-0.8); Hematocrit 29.5 VOL% (35.7-47.0); Hemoglobin 9.1 GM/DL (12.0-16.0); Immature Granulocytes % 2.1 %; Immature Granulocytes Absolute 0.29 #; Lymphocytes # 0.5 10*3/uL (1.4-4.0); Lymphocytes % 3.3 % (21.3-54.2); Mean Corpuscular HGB Conc 30.8 GM/DL (32-36); Mean Platelet Volume 12.2 FL (9.6-12.0); Monocytes % 4.8 % (1.7-12.7); Neutrophils % 89.7 % (38.7-73.9); Red Blood Count 3.51 MC/CUMM (3.8-5.5); White Blood Count 13.6 T/CUMM (4-12)
[2020-08-15 07:11] LABS: Platelet Count 106 T/CUMM (130-400)
[2020-08-15 07:28] LABS: Lymphocytes 6 % (20-55); Segmented Neutrophils 90 % (50-85); Total Cells Counted 100
[2020-08-15 07:29] LABS: Hypochromasia 1+; Microcytosis 1+; Platelet Estimate Decreased
[2020-08-15] MEDS: DEXTROSE 50% 25 GM/50 ML VIAL IV PRN (09:03)
[2020-08-15] MEDS: POLYETHYLENE GLYCOL POWDER 17 GM PACK PO SCH ×2 (09:09→20:52)
[2020-08-15] MEDS: cloNIDine 0.1 MG TABLET PO SCH ×3 (09:10→20:51)
[2020-08-15] MEDS: MAGNESIUM OXIDE 400 MG TABLET PO SCH (09:10)
[2020-08-15] MEDS: ASPIRIN EC 325 MG TABLET PO SCH (09:10)
[2020-08-15] MEDS: LORATADINE 10 MG TABLET PO SCH (09:10)
[2020-08-15] MEDS: NITROGLYCERIN 2% OINT 1 INCH/GM PACK TOP SCH ×2 (09:10→20:52)
[2020-08-15] MEDS: FERROUS SULFATE 325 MG TABLET PO SCH (09:10)
[2020-08-15] MEDS: METOCLOPRAMIDE 5 MG TABLET PO SCH ×3 (09:11→20:52)
[2020-08-15] MEDS: INSULIN GLARGINE 100 UNIT/ML SUBCUT SCH (09:12)
[2020-08-15] MEDS: GLIMEPIRIDE 2 MG TABLET PO SCH ×2 (09:12→17:52)
[2020-08-15] MEDS: methylPREDNISolone SOD SUC 40 MG/1 ML VIAL IV SCH ×2 (09:15→21:00)
[2020-08-15] MEDS: SODIUM CHLORIDE 0.9% 1,000 ML IV SCH (13:46)
[2020-08-15] MEDS: ONDANSETRON 4 MG/2 ML VIAL IV PRN (14:09)
[2020-08-15] MEDS: PROMETHAZINE 25 MG/1 ML VIAL IM PRN (17:48)
[2020-08-15] MEDS: OLANZapine 5 MG TABLET PO SCH (20:52)
[2020-08-15] MEDS: GABAPENTIN 300 MG CAPSULE PO SCH (20:52)
[2020-08-16] MEDS: ALBUTEROL/IPRATROPIUM 3 ML NEB RESP TX SCH ×4 (00:10→19:21)
[2020-08-16] MEDS: MEROPENEM 500 MG in SODIUM CHLORIDE 0.9% 100 ML IV SCH (01:50)
[2020-08-16 04:55] LABS: Basophils % 0.1 % (0.0-0.8); Hematocrit 27.2 VOL% (35.7-47.0); Hemoglobin 8.7 GM/DL (12.0-16.0); Immature Granulocytes % 1.6 %; Immature Granulocytes Absolute 0.19 #; Lymphocytes # 0.4 10*3/uL (1.4-4.0); Lymphocytes % 3.6 % (21.3-54.2); Mean Corpuscular Volume 81.7 FL (87-102); Mean Platelet Volume 12.3 FL (9.6-12.0); Monocytes % 4.6 % (1.7-12.7); Neutrophils % 90.1 % (38.7-73.9); Platelet Count 90 T/CUMM (130-400); Red Blood Count 3.33 MC/CUMM (3.8-5.5); Red Cell Distribution Width 14.8 % (9.3-17.3); White Blood Count 11.8 T/CUMM (4-12)
[2020-08-16 05:13] LABS: Alanine Aminotransferase 60 U/L (13-56); Albumin 2.9 G/DL (3.4-5.0); Alkaline Phosphatase 91 U/L (45-117); Aspartate Amino Transferase 41 U/L (0-37); Bilirubin,Total < 0.39 MG/DL (0.2-1.0); Blood Urea Nitrogen 75 MG/DL (7-18); Calcium 8.3 MG/DL (8.5-10.1); Carbon Dioxide 29 MMOL/L (21-32); Estimated Glom Filtration Rate 17 ML/MIN; Glucose 176 MG/DL (74-106); Osmolality,Calculated 304.4 MOS/KG (273-304); Potassium 4.5 MMOL/L (3.5-5.1); Sodium 140 MMOL/L (136-145); Total Protein 5.1 G/DL (6.4-8.2)
[2020-08-16 05:15] LABS: Hypochromasia 1+; Lymphocytes 3 % (20-55); Microcytosis 1+; Platelet Estimate Decreased; Segmented Neutrophils 93 % (50-85); Total Cells Counted 100
[2020-08-16] MEDS ORDERED: ALUM/MAG/SIMETH/LIDO VISC 1:1 30 ML BOTTLE PO ONE (07:37)
[2020-08-16] MEDS: ISOSORBIDE MONONITRATE 30 MG TABLET PO SCH (10:02)
[2020-08-16] MEDS: POLYETHYLENE GLYCOL POWDER 17 GM PACK PO SCH (10:02)
[2020-08-16] MEDS: LORATADINE 10 MG TABLET PO SCH (10:03)
[2020-08-16] MEDS: ASPIRIN EC 325 MG TABLET PO SCH (10:03)
[2020-08-16] MEDS: cloNIDine 0.1 MG TABLET PO SCH ×3 (10:03→22:38)
[2020-08-16] MEDS: allopurinoL 100 MG TABLET PO SCH (10:03)
[2020-08-16] MEDS: FERROUS SULFATE 325 MG TABLET PO SCH (10:03)
[2020-08-16] MEDS: METOCLOPRAMIDE 5 MG TABLET PO SCH ×3 (10:03→22:38)
[2020-08-16] MEDS: PANTOPRAZOLE 40 MG TABLET PO SCH (10:04)
[2020-08-16] MEDS: GLIMEPIRIDE 2 MG TABLET PO SCH ×2 (10:06→18:33)
[2020-08-16] MEDS: INSULIN REGULAR 100 UNIT/ML SUBCUT SCH ×2 (10:06→18:41)
[2020-08-16] MEDS: INSULIN GLARGINE 100 UNIT/ML SUBCUT SCH (10:07)
[2020-08-16] MEDS: MAGNESIUM OXIDE 400 MG TABLET PO SCH (10:12)
[2020-08-16] MEDS: methylPREDNISolone SOD SUC 40 MG/1 ML VIAL IV SCH ×2 (10:16→22:51)
[2020-08-16] MEDS: NICOTINE 14 MG/24 HR PATCH TRANSDERM SCH (18:33)
[2020-08-16] MEDS: AZITHROMYCIN INJ 500 MG in SODIUM CHLORIDE 0.9% 250 ML IV SCH (20:28)
[2020-08-16] MEDS: OLANZapine 5 MG TABLET PO SCH (22:38)
[2020-08-16] MEDS: GABAPENTIN 300 MG CAPSULE PO SCH (22:39)
[2020-08-17] MEDS: POLYETHYLENE GLYCOL POWDER 17 GM PACK PO SCH ×2 (01:13→09:33)
[2020-08-17] MEDS: INSULIN REGULAR 100 UNIT/ML SUBCUT SCH ×4 (01:15→15:46)
[2020-08-17] MEDS: ALBUTEROL/IPRATROPIUM 3 ML NEB RESP TX SCH ×4 (01:20→20:20)
[2020-08-17] MEDS: ONDANSETRON 4 MG/2 ML VIAL IV PRN ×2 (05:45→21:17)
[2020-08-17 05:55] LABS: Basophils % 0.1 % (0.0-0.8); Hematocrit 28.7 VOL% (35.7-47.0); Hemoglobin 8.8 GM/DL (12.0-16.0); Immature Granulocytes % 1.3 %; Immature Granulocytes Absolute 0.13 #; Lymphocytes # 0.5 10*3/uL (1.4-4.0); Lymphocytes % 4.4 % (21.3-54.2); Mean Corpuscular HGB Conc 30.7 GM/DL (32-36); Mean Corpuscular Volume 83.7 FL (87-102); Mean Platelet Volume 11.8 FL (9.6-12.0); Monocytes % 4.6 % (1.7-12.7); Neutrophils % 89.6 % (38.7-73.9); Platelet Count 95 T/CUMM (130-400); Red Blood Count 3.43 MC/CUMM (3.8-5.5); Red Cell Distribution Width 14.6 % (9.3-17.3); White Blood Count 10.3 T/CUMM (4-12)
[2020-08-17 06:09] LABS: Calcium 8.9 MG/DL (8.5-10.1); Osmolality,Calculated 286.8 MOS/KG (273-304); Potassium 4.3 MMOL/L (3.5-5.1)
[2020-08-17 06:24] LABS: Lymphocytes 5 % (20-55); Segmented Neutrophils 91 % (50-85); Total Cells Counted 100
[2020-08-17 06:25] LABS: Hypochromasia 1+; Microcytosis 1+; Platelet Estimate Decreased
[2020-08-17] MEDS: GLIMEPIRIDE 2 MG TABLET PO SCH ×2 (09:35→17:13)
[2020-08-17] MEDS: allopurinoL 100 MG TABLET PO SCH (09:35)
[2020-08-17] MEDS: PANTOPRAZOLE 40 MG TABLET PO SCH (09:35)
[2020-08-17] MEDS: ISOSORBIDE MONONITRATE 30 MG TABLET PO SCH (09:35)
[2020-08-17] MEDS: cloNIDine 0.1 MG TABLET PO SCH ×2 (09:35→14:55)
[2020-08-17] MEDS: FERROUS SULFATE 325 MG TABLET PO SCH (09:35)
[2020-08-17] MEDS: ASPIRIN EC 325 MG TABLET PO SCH (09:35)
[2020-08-17] MEDS: MAGNESIUM OXIDE 400 MG TABLET PO SCH (09:35)
[2020-08-17] MEDS: LORATADINE 10 MG TABLET PO SCH (09:36)
[2020-08-17] MEDS: METOCLOPRAMIDE 5 MG TABLET PO SCH ×2 (09:36→15:01)
[2020-08-17] MEDS: methylPREDNISolone SOD SUC 40 MG/1 ML VIAL IV SCH (09:37)
[2020-08-17] MEDS: INSULIN GLARGINE 100 UNIT/ML SUBCUT SCH (09:37)
[2020-08-17] MEDS: NICOTINE 14 MG/24 HR PATCH TRANSDERM SCH (09:39)
[2020-08-17] MEDS ORDERED: NICOTINE 14 MG/24 HR PATCH TRANSDERM SCH (17:25)
[2020-08-17] MEDS: AZITHROMYCIN INJ 500 MG in SODIUM CHLORIDE 0.9% 250 ML IV SCH (21:19)
[2020-08-17] MEDS: PROMETHAZINE 25 MG/1 ML VIAL IM PRN (22:03)
[2020-08-18] MEDS: OLANZapine 5 MG TABLET PO SCH ×2 (00:02→21:06)
[2020-08-18] MEDS: methylPREDNISolone SOD SUC 40 MG/1 ML VIAL IV SCH ×3 (00:02→21:05)
[2020-08-18] MEDS: cloNIDine 0.1 MG TABLET PO SCH ×4 (00:02→21:06)
[2020-08-18] MEDS: METOCLOPRAMIDE 5 MG TABLET PO SCH ×4 (00:02→21:06)
[2020-08-18] MEDS: GABAPENTIN 300 MG CAPSULE PO SCH ×2 (00:03→21:06)
[2020-08-18] MEDS: POLYETHYLENE GLYCOL POWDER 17 GM PACK PO SCH ×3 (00:51→21:22)
[2020-08-18] MEDS: INSULIN REGULAR 100 UNIT/ML SUBCUT SCH ×5 (00:52→21:22)
[2020-08-18] MEDS: ALBUTEROL/IPRATROPIUM 3 ML NEB RESP TX SCH ×4 (02:00→19:55)
[2020-08-18 05:33] LABS: Calcium 8.9 MG/DL (8.5-10.1); Osmolality,Calculated 292.5 MOS/KG (273-304); Potassium 4.5 MMOL/L (3.5-5.1)
[2020-08-18] MEDS: DEXTROSE 50% 25 GM/50 ML VIAL IV PRN (05:49)
[2020-08-18] MEDS: FERROUS SULFATE 325 MG TABLET PO SCH (10:35)
[2020-08-18] MEDS: LORATADINE 10 MG TABLET PO SCH (10:35)
[2020-08-18] MEDS: ASPIRIN EC 325 MG TABLET PO SCH (10:35)
[2020-08-18] MEDS: allopurinoL 100 MG TABLET PO SCH (10:36)
[2020-08-18] MEDS: PANTOPRAZOLE 40 MG TABLET PO SCH (10:36)
[2020-08-18] MEDS: NICOTINE 14 MG/24 HR PATCH TRANSDERM SCH (10:36)
[2020-08-18] MEDS: GLIMEPIRIDE 2 MG TABLET PO SCH ×2 (11:10→16:38)
[2020-08-18] MEDS: INSULIN GLARGINE 100 UNIT/ML SUBCUT SCH (11:11)
[2020-08-18] MEDS: ISOSORBIDE MONONITRATE 30 MG TABLET PO SCH (15:12)
[2020-08-18] MEDS: MAGNESIUM OXIDE 400 MG TABLET PO SCH (15:13)
[2020-08-19] MEDS: ALBUTEROL/IPRATROPIUM 3 ML NEB RESP TX SCH ×4 (02:35→19:08)
[2020-08-19 04:38] LABS: Basophils % 0.1 % (0.0-0.8); Hematocrit 24.8 VOL% (35.7-47.0); Hemoglobin 7.6 GM/DL (12.0-16.0); Immature Granulocytes % 1.6 %; Immature Granulocytes Absolute 0.26 #; Lymphocytes # 0.4 10*3/uL (1.4-4.0); Lymphocytes % 2.3 % (21.3-54.2); Mean Corpuscular HGB Conc 30.6 GM/DL (32-36); Mean Corpuscular Volume 84.1 FL (87-102); Mean Platelet Volume 11.8 FL (9.6-12.0); Monocytes % 2.6 % (1.7-12.7); Neutrophils % 93.4 % (38.7-73.9); Platelet Count 117 T/CUMM (130-400); Red Blood Count 2.95 MC/CUMM (3.8-5.5); Red Cell Distribution Width 14.6 % (9.3-17.3); White Blood Count 16.7 T/CUMM (4-12)
[2020-08-19 05:02] LABS: Albumin 2.6 G/DL (3.4-5.0); Bilirubin,Total 0.4 MG/DL (0.2-1.0); Calcium 8.5 MG/DL (8.5-10.1); Osmolality,Calculated 286.2 MOS/KG (273-304); Potassium 4.7 MMOL/L (3.5-5.1)
[2020-08-19 05:07] LABS: Hypochromasia 1+; Lymphocytes 3 % (20-55); Microcytosis 1+; Ovalocytes Slight; Platelet Estimate Decreased; Segmented Neutrophils 94 % (50-85); Total Cells Counted 100
[2020-08-19] MEDS: NICOTINE 14 MG/24 HR PATCH TRANSDERM SCH (09:24)
[2020-08-19] MEDS: ISOSORBIDE MONONITRATE 30 MG TABLET PO SCH (09:25)
[2020-08-19] MEDS: POLYETHYLENE GLYCOL POWDER 17 GM PACK PO SCH ×2 (09:25→21:01)
[2020-08-19] MEDS: PANTOPRAZOLE 40 MG TABLET PO SCH (09:25)
[2020-08-19] MEDS: ASPIRIN EC 325 MG TABLET PO SCH (09:26)
[2020-08-19] MEDS: LORATADINE 10 MG TABLET PO SCH (09:26)
[2020-08-19] MEDS: MAGNESIUM OXIDE 400 MG TABLET PO SCH (09:26)
[2020-08-19] MEDS: cloNIDine 0.1 MG TABLET PO SCH ×3 (09:26→21:01)
[2020-08-19] MEDS: GLIMEPIRIDE 2 MG TABLET PO SCH ×2 (09:27→16:07)
[2020-08-19] MEDS: FERROUS SULFATE 325 MG TABLET PO SCH (09:27)
[2020-08-19] MEDS: METOCLOPRAMIDE 5 MG TABLET PO SCH ×3 (09:27→21:01)
[2020-08-19] MEDS: allopurinoL 100 MG TABLET PO SCH (09:27)
[2020-08-19] MEDS: methylPREDNISolone SOD SUC 40 MG/1 ML VIAL IV SCH ×2 (09:27→21:01)
[2020-08-19] MEDS: INSULIN REGULAR 100 UNIT/ML SUBCUT SCH ×4 (09:28→21:01)
[2020-08-19] MEDS: INSULIN GLARGINE 100 UNIT/ML SUBCUT SCH (09:28)
[2020-08-19] MEDS: ONDANSETRON 4 MG/2 ML VIAL IV PRN (16:54)
[2020-08-19] MEDS: OLANZapine 5 MG TABLET PO SCH (21:01)
[2020-08-20] MEDS: ALBUTEROL/IPRATROPIUM 3 ML NEB RESP TX SCH ×4 (01:35→18:23)
[2020-08-20 06:17] LABS: Osmolality,Calculated 292.1 MOS/KG (273-304); Potassium 4.8 MMOL/L (3.5-5.1)
[2020-08-20 06:53] LABS: Basophils % 0.1 % (0.0-0.8); Hematocrit 25.8 VOL% (35.7-47.0); Hemoglobin 7.9 GM/DL (12.0-16.0); Immature Granulocytes % 2.7 %; Immature Granulocytes Absolute 0.51 #; Lymphocytes # 0.5 10*3/uL (1.4-4.0); Lymphocytes % 2.7 % (21.3-54.2); Mean Corpuscular HGB Conc 30.6 GM/DL (32-36); Mean Corpuscular Volume 85.4 FL (87-102); Mean Platelet Volume 12.2 FL (9.6-12.0); Monocytes % 3.1 % (1.7-12.7); Neutrophils % 91.4 % (38.7-73.9); Platelet Count 161 T/CUMM (130-400); Red Blood Count 3.02 MC/CUMM (3.8-5.5); Red Cell Distribution Width 14.7 % (9.3-17.3); White Blood Count 19.2 T/CUMM (4-12)
[2020-08-20 07:13] LABS: Hypochromasia 1+; Lymphocytes 2 % (20-55); Microcytosis 1+; Platelet Estimate Adequate; Segmented Neutrophils 97 % (50-85); Total Cells Counted 100
[2020-08-20] MEDS: NICOTINE 14 MG/24 HR PATCH TRANSDERM SCH (09:32)
[2020-08-20] MEDS: INSULIN REGULAR 100 UNIT/ML SUBCUT SCH ×4 (09:33→20:28)
[2020-08-20] MEDS: POLYETHYLENE GLYCOL POWDER 17 GM PACK PO SCH ×2 (09:33→21:02)
[2020-08-20] MEDS: methylPREDNISolone SOD SUC 40 MG/1 ML VIAL IV SCH ×2 (09:33→21:02)
[2020-08-20] MEDS: METOCLOPRAMIDE 5 MG TABLET PO SCH ×3 (09:34→21:02)
[2020-08-20] MEDS: cloNIDine 0.1 MG TABLET PO SCH ×3 (09:34→21:02)
[2020-08-20] MEDS: INSULIN GLARGINE 100 UNIT/ML SUBCUT SCH (09:34)
[2020-08-20] MEDS: allopurinoL 100 MG TABLET PO SCH (09:35)
[2020-08-20] MEDS: LORATADINE 10 MG TABLET PO SCH (09:35)
[2020-08-20] MEDS: ASPIRIN EC 325 MG TABLET PO SCH (09:35)
[2020-08-20] MEDS: MAGNESIUM OXIDE 400 MG TABLET PO SCH (09:35)
[2020-08-20] MEDS: PANTOPRAZOLE 40 MG TABLET PO SCH (09:36)
[2020-08-20] MEDS: ISOSORBIDE MONONITRATE 30 MG TABLET PO SCH (09:36)
[2020-08-20] MEDS: GLIMEPIRIDE 2 MG TABLET PO SCH ×2 (09:36→16:42)
[2020-08-20] MEDS: FERROUS SULFATE 325 MG TABLET PO SCH (09:36)
[2020-08-20] MEDS: OLANZapine 5 MG TABLET PO SCH (21:02)
[2020-08-21] MEDS: ALBUTEROL/IPRATROPIUM 3 ML NEB RESP TX SCH ×4 (00:47→20:12)
[2020-08-21 06:34] LABS: Basophils % 0.1 % (0.0-0.8); Hematocrit 21.3 VOL% (35.7-47.0); Hemoglobin 6.9 GM/DL (12.0-16.0); Immature Granulocytes % 1.9 %; Immature Granulocytes Absolute 0.27 #; Lymphocytes # 0.4 10*3/uL (1.4-4.0); Lymphocytes % 2.8 % (21.3-54.2); Mean Corpuscular HGB Conc 32.4 GM/DL (32-36); Mean Corpuscular Volume 83.2 FL (87-102); Mean Platelet Volume 11.8 FL (9.6-12.0); Monocytes % 3.8 % (1.7-12.7); Neutrophils % 91.4 % (38.7-73.9); Platelet Count 170 T/CUMM (130-400); Red Blood Count 2.56 MC/CUMM (3.8-5.5); Red Cell Distribution Width 14.6 % (9.3-17.3); White Blood Count 14.1 T/CUMM (4-12)
[2020-08-21 06:46] LABS: Hypochromasia 1+; Lymphocytes 3 % (20-55); Segmented Neutrophils 94 % (50-85); Total Cells Counted 100
[2020-08-21 06:47] LABS: Microcytosis 1+
[2020-08-21 06:48] LABS: Platelet Estimate Adequate
[2020-08-21 06:52] LABS: Calcium 8.9 MG/DL (8.5-10.1); Osmolality,Calculated 295.2 MOS/KG (273-304); Potassium 5.2 MMOL/L (3.5-5.1)
[2020-08-21] MEDS: MAGNESIUM OXIDE 400 MG TABLET PO SCH (10:23)
[2020-08-21] MEDS: LACTULOSE 20 GM/30 ML UDCUP PO SCH ×2 (10:23→10:26)
[2020-08-21] MEDS: cloNIDine 0.1 MG TABLET PO SCH ×3 (10:23→20:45)
[2020-08-21] MEDS: POLYETHYLENE GLYCOL POWDER 17 GM PACK PO SCH ×2 (10:23→20:44)
[2020-08-21] MEDS: ASPIRIN EC 325 MG TABLET PO SCH (10:24)
[2020-08-21] MEDS: NICOTINE 14 MG/24 HR PATCH TRANSDERM SCH (10:24)
[2020-08-21] MEDS: GLIMEPIRIDE 2 MG TABLET PO SCH ×2 (10:25→17:57)
[2020-08-21] MEDS: allopurinoL 100 MG TABLET PO SCH (10:25)
[2020-08-21] MEDS: ISOSORBIDE MONONITRATE 30 MG TABLET PO SCH (10:25)
[2020-08-21] MEDS: FERROUS SULFATE 325 MG TABLET PO SCH (10:25)
[2020-08-21] MEDS: DOCUSATE SODIUM 100 MG CAPSULE PO PRN (10:25)
[2020-08-21] MEDS: PANTOPRAZOLE 40 MG TABLET PO SCH (10:25)
[2020-08-21] MEDS: METOCLOPRAMIDE 5 MG TABLET PO SCH ×3 (10:25→20:45)
[2020-08-21] MEDS: LORATADINE 10 MG TABLET PO SCH (10:26)
[2020-08-21] MEDS: INSULIN REGULAR 100 UNIT/ML SUBCUT SCH ×4 (10:29→20:46)
[2020-08-21] MEDS: INSULIN GLARGINE 100 UNIT/ML SUBCUT SCH (10:29)
[2020-08-21] MEDS: OLANZapine 5 MG TABLET PO SCH (20:45)
[2020-08-22] MEDS: ALBUTEROL/IPRATROPIUM 3 ML NEB RESP TX SCH ×4 (01:58→19:02)
[2020-08-22] MEDS: DEXTROSE 50% 25 GM/50 ML VIAL IV PRN ×3 (03:21→11:42)
[2020-08-22] MEDS: INSULIN REGULAR 100 UNIT/ML SUBCUT SCH ×4 (07:48→21:20)
[2020-08-22] MEDS: INSULIN GLARGINE 100 UNIT/ML SUBCUT SCH (07:48)
[2020-08-22] MEDS: allopurinoL 100 MG TABLET PO SCH (08:42)
[2020-08-22] MEDS: MAGNESIUM OXIDE 400 MG TABLET PO SCH (08:42)
[2020-08-22] MEDS: ASPIRIN EC 325 MG TABLET PO SCH (08:43)
[2020-08-22] MEDS: GLIMEPIRIDE 2 MG TABLET PO SCH ×2 (08:43→18:05)
[2020-08-22] MEDS: PANTOPRAZOLE 40 MG TABLET PO SCH (08:43)
[2020-08-22] MEDS: ISOSORBIDE MONONITRATE 30 MG TABLET PO SCH (08:43)
[2020-08-22] MEDS: cloNIDine 0.1 MG TABLET PO SCH ×3 (08:43→21:20)
[2020-08-22] MEDS: METOCLOPRAMIDE 5 MG TABLET PO SCH ×3 (08:43→21:20)
[2020-08-22] MEDS: LORATADINE 10 MG TABLET PO SCH (08:43)
[2020-08-22] MEDS: FERROUS SULFATE 325 MG TABLET PO SCH (08:43)
[2020-08-22] MEDS: NICOTINE 14 MG/24 HR PATCH TRANSDERM SCH (08:44)
[2020-08-22] MEDS: LACTULOSE 20 GM/30 ML UDCUP PO SCH (08:44)
[2020-08-22] MEDS: POLYETHYLENE GLYCOL POWDER 17 GM PACK PO SCH ×2 (08:44→21:20)
[2020-08-22] MEDS: ONDANSETRON 4 MG/2 ML VIAL IV PRN (14:04)
[2020-08-22] MEDS: OLANZapine 5 MG TABLET PO SCH (21:20)
[2020-08-23] MEDS: ALBUTEROL/IPRATROPIUM 3 ML NEB RESP TX SCH ×4 (00:36→19:30)
[2020-08-23] MEDS: DEXTROSE 50% 25 GM/50 ML VIAL IV PRN ×2 (04:15→07:48)
[2020-08-23 05:06] LABS: Basophils % 0.1 % (0.0-0.8); Eosinophils # 0.2 10*3/uL (0.0-0.87); Eosinophils % 1.6 % (0.00-10.9); Immature Granulocytes % 1.7 %; Immature Granulocytes Absolute 0.18 #; Lymphocytes # 1.2 10*3/uL (1.4-4.0); Lymphocytes % 11.5 % (21.3-54.2); Mean Corpuscular HGB Conc 32.9 GM/DL (32-36); Mean Corpuscular Volume 83.8 FL (87-102); Mean Platelet Volume 10.9 FL (9.6-12.0); Monocytes % 8.6 % (1.7-12.7); Neutrophils % 76.5 % (38.7-73.9); Red Cell Distribution Width 15.1 % (9.3-17.3); White Blood Count 10.3 T/CUMM (4-12)
[2020-08-23 05:08] LABS: Red Blood Count 3.34 MC/CUMM (3.8-5.5)
[2020-08-23 05:09] LABS: Hemoglobin 9.2 GM/DL (12.0-16.0); Platelet Count 135 T/CUMM (130-400)
[2020-08-23 05:20] LABS: Eosinophils 2 % (0-10); Lymphocytes 10 % (20-55); Segmented Neutrophils 81 % (50-85); Total Cells Counted 100
[2020-08-23 05:21] LABS: Calcium 8.3 MG/DL (8.5-10.1); Hypochromasia 1+; Microcytosis 1+; Platelet Estimate Normal; Potassium 4.3 MMOL/L (3.5-5.1)
[2020-08-23 05:23] LABS: Osmolality,Calculated 284.1 MOS/KG (273-304)
[2020-08-23] MEDS: INSULIN REGULAR 100 UNIT/ML SUBCUT SCH ×4 (07:59→22:23)
[2020-08-23] MEDS: GLIMEPIRIDE 2 MG TABLET PO SCH ×2 (07:59→16:02)
[2020-08-23] MEDS: INSULIN GLARGINE 100 UNIT/ML SUBCUT SCH (08:32)
[2020-08-23] MEDS: cloNIDine 0.1 MG TABLET PO SCH ×3 (10:01→22:04)
[2020-08-23] MEDS: METOCLOPRAMIDE 5 MG TABLET PO SCH ×3 (10:02→22:04)
[2020-08-23] MEDS: ISOSORBIDE MONONITRATE 30 MG TABLET PO SCH (12:50)
[2020-08-23] MEDS: NICOTINE 14 MG/24 HR PATCH TRANSDERM SCH (12:50)
[2020-08-23] MEDS: ASPIRIN EC 325 MG TABLET PO SCH (12:50)
[2020-08-23] MEDS: LORATADINE 10 MG TABLET PO SCH (12:50)
[2020-08-23] MEDS: POLYETHYLENE GLYCOL POWDER 17 GM PACK PO SCH ×2 (12:50→22:11)
[2020-08-23] MEDS: MAGNESIUM OXIDE 400 MG TABLET PO SCH (12:50)
[2020-08-23] MEDS: FERROUS SULFATE 325 MG TABLET PO SCH (12:50)
[2020-08-23] MEDS: LACTULOSE 20 GM/30 ML UDCUP PO SCH (12:50)
[2020-08-23] MEDS: PANTOPRAZOLE 40 MG TABLET PO SCH (12:51)
[2020-08-23] MEDS: allopurinoL 100 MG TABLET PO SCH (12:51)
[2020-08-23] MEDS: ONDANSETRON 4 MG/2 ML VIAL IV PRN (14:18)
[2020-08-23] MEDS ORDERED: ACETAMINOPHEN 325 MG TABLET PO PRN (17:55)
[2020-08-23] MEDS ORDERED: VANCOMYCIN INJ 750 MG in SODIUM CHLORIDE 0.9% 250 ML IV ONE (20:29)
[2020-08-23] MEDS ORDERED: VANCOMYCIN INJ 750 MG in SODIUM CHLORIDE 0.9% 250 ML IV PRN (20:39)
[2020-08-23] MEDS ORDERED: VANCOMYCIN INJ 2,500 MG in SODIUM CHLORIDE 0.9% 500 ML IV ONE (22:00)
[2020-08-23] MEDS: OLANZapine 5 MG TABLET PO SCH (22:04)
[2020-08-24] MEDS: ALBUTEROL/IPRATROPIUM 3 ML NEB RESP TX SCH ×3 (00:29→19:26)
[2020-08-24 07:17] LABS: Basophils % 0.2 % (0.0-0.8); Eosinophils # 0.1 10*3/uL (0.0-0.87); Eosinophils % 1.4 % (0.00-10.9); Hematocrit 27.8 VOL% (35.7-47.0); Hemoglobin 8.6 GM/DL (12.0-16.0); Lymphocytes % 9.7 % (21.3-54.2); Mean Corpuscular HGB Conc 30.9 GM/DL (32-36); Mean Corpuscular Volume 87.4 FL (87-102); Mean Platelet Volume 11.5 FL (9.6-12.0); Monocytes % 8.9 % (1.7-12.7); Neutrophils % 78.8 % (38.7-73.9); Platelet Count 123 T/CUMM (130-400); Red Blood Count 3.18 MC/CUMM (3.8-5.5); Red Cell Distribution Width 15.5 % (9.3-17.3)
[2020-08-24 07:34] LABS: Band Neutrophils 1 % (0-10); Lymphocytes 11 % (20-55); Segmented Neutrophils 79 % (50-85); Total Cells Counted 100
[2020-08-24 07:35] LABS: Hypochromasia Slight; Microcytosis Slight
[2020-08-24 07:52] LABS: Osmolality,Calculated 277.2 MOS/KG (273-304); Potassium 4.3 MMOL/L (3.5-5.1)
[2020-08-24] MEDS: INSULIN REGULAR 100 UNIT/ML SUBCUT SCH ×4 (09:06→20:48)
[2020-08-24] MEDS: POLYETHYLENE GLYCOL POWDER 17 GM PACK PO SCH ×2 (09:06→20:48)
[2020-08-24] MEDS: LACTULOSE 20 GM/30 ML UDCUP PO SCH (09:06)
[2020-08-24] MEDS: NICOTINE 14 MG/24 HR PATCH TRANSDERM SCH (09:07)
[2020-08-24] MEDS: MAGNESIUM OXIDE 400 MG TABLET PO SCH (09:07)
[2020-08-24] MEDS: FERROUS SULFATE 325 MG TABLET PO SCH (09:08)
[2020-08-24] MEDS: PANTOPRAZOLE 40 MG TABLET PO SCH (09:08)
[2020-08-24] MEDS: allopurinoL 100 MG TABLET PO SCH (09:08)
[2020-08-24] MEDS: ASPIRIN EC 325 MG TABLET PO SCH (09:08)
[2020-08-24] MEDS: cloNIDine 0.1 MG TABLET PO SCH ×3 (09:09→20:47)
[2020-08-24] MEDS: LORATADINE 10 MG TABLET PO SCH (09:09)
[2020-08-24] MEDS: ISOSORBIDE MONONITRATE 30 MG TABLET PO SCH (09:09)
[2020-08-24] MEDS: METOCLOPRAMIDE 5 MG TABLET PO SCH ×3 (09:09→20:47)
[2020-08-24] MEDS: ONDANSETRON 4 MG/2 ML VIAL IV PRN (13:09)
[2020-08-24] MEDS ORDERED: CLINDAMYCIN INJ 900 MG/50 ML PREMIX IV ONE (13:24)
[2020-08-24] MEDS: MEGESTROL 40 MG TABLET PO SCH (16:14)
[2020-08-24] MEDS: PROMETHAZINE 25 MG/1 ML VIAL IM PRN (18:22)
[2020-08-24] MEDS: OLANZapine 5 MG TABLET PO SCH (20:47)
[2020-08-25] MEDS: ALBUTEROL/IPRATROPIUM 3 ML NEB RESP TX SCH ×5 (00:50→19:22)
[2020-08-25] MEDS ORDERED: CLINDAMYCIN INJ 900 MG/50 ML PREMIX IV ONE (06:11)
[2020-08-25 06:57] LABS: Osmolality,Calculated 288.1 MOS/KG (273-304); Potassium 4.4 MMOL/L (3.5-5.1)
[2020-08-25] MEDS: INSULIN REGULAR 100 UNIT/ML SUBCUT SCH ×4 (09:20→22:43)
[2020-08-25] MEDS: MEGESTROL 40 MG TABLET PO SCH ×3 (09:20→18:04)
[2020-08-25] MEDS: LACTULOSE 20 GM/30 ML UDCUP PO SCH (09:20)
[2020-08-25] MEDS: cloNIDine 0.1 MG TABLET PO SCH ×3 (09:20→22:37)
[2020-08-25] MEDS: POLYETHYLENE GLYCOL POWDER 17 GM PACK PO SCH ×2 (09:21→22:37)
[2020-08-25] MEDS: METOCLOPRAMIDE 5 MG TABLET PO SCH ×3 (09:21→22:37)
[2020-08-25] MEDS ORDERED: VANCOMYCIN INJ 750 MG in SODIUM CHLORIDE 0.9% 250 ML IV ONE (13:00)
[2020-08-25] MEDS: ISOSORBIDE MONONITRATE 30 MG TABLET PO SCH (14:02)
[2020-08-25] MEDS: MAGNESIUM OXIDE 400 MG TABLET PO SCH (14:02)
[2020-08-25] MEDS: ASPIRIN EC 325 MG TABLET PO SCH (14:02)
[2020-08-25] MEDS: FERROUS SULFATE 325 MG TABLET PO SCH (14:03)
[2020-08-25] MEDS: PANTOPRAZOLE 40 MG TABLET PO SCH (14:03)
[2020-08-25] MEDS: allopurinoL 100 MG TABLET PO SCH (14:03)
[2020-08-25] MEDS: LORATADINE 10 MG TABLET PO SCH (14:03)
[2020-08-25] MEDS: NICOTINE 14 MG/24 HR PATCH TRANSDERM SCH (14:04)
[2020-08-25] MEDS: traMADol 50 MG TABLET PO PRN (15:10)
[2020-08-25] MEDS: OLANZapine 5 MG TABLET PO SCH (22:38)
[2020-08-26] MEDS: ALBUTEROL/IPRATROPIUM 3 ML NEB RESP TX SCH ×4 (00:18→20:10)
[2020-08-26 06:37] LABS: Basophils % 0.1 % (0.0-0.8); Eosinophils # 0.1 10*3/uL (0.0-0.87); Eosinophils % 1.8 % (0.00-10.9); Hematocrit 24.8 VOL% (35.7-47.0); Hemoglobin 7.8 GM/DL (12.0-16.0); Immature Granulocytes % 0.4 %; Immature Granulocytes Absolute 0.03 #; Lymphocytes # 0.7 10*3/uL (1.4-4.0); Lymphocytes % 8.9 % (21.3-54.2); Mean Corpuscular HGB Conc 31.5 GM/DL (32-36); Mean Corpuscular Volume 86.1 FL (87-102); Mean Platelet Volume 10.7 FL (9.6-12.0); Monocytes % 10.2 % (1.7-12.7); Neutrophils % 78.6 % (38.7-73.9); Platelet Count 107 T/CUMM (130-400); Red Blood Count 2.88 MC/CUMM (3.8-5.5); Red Cell Distribution Width 15.3 % (9.3-17.3); White Blood Count 7.3 T/CUMM (4-12)
[2020-08-26 06:54] LABS: Osmolality,Calculated 285.8 MOS/KG (273-304); Potassium 4.3 MMOL/L (3.5-5.1)
[2020-08-26] MEDS: INSULIN REGULAR 100 UNIT/ML SUBCUT SCH ×4 (09:15→21:20)
[2020-08-26] MEDS: PANTOPRAZOLE 40 MG TABLET PO SCH (09:16)
[2020-08-26] MEDS: MAGNESIUM OXIDE 400 MG TABLET PO SCH (09:16)
[2020-08-26] MEDS: METOCLOPRAMIDE 5 MG TABLET PO SCH ×3 (09:16→21:19)
[2020-08-26] MEDS: ASPIRIN EC 325 MG TABLET PO SCH (09:16)
[2020-08-26] MEDS: allopurinoL 100 MG TABLET PO SCH (09:16)
[2020-08-26] MEDS: cloNIDine 0.1 MG TABLET PO SCH ×3 (09:17→21:20)
[2020-08-26] MEDS: LORATADINE 10 MG TABLET PO SCH (09:17)
[2020-08-26] MEDS: FERROUS SULFATE 325 MG TABLET PO SCH (09:17)
[2020-08-26] MEDS: ISOSORBIDE MONONITRATE 30 MG TABLET PO SCH (09:17)
[2020-08-26] MEDS: LACTULOSE 20 GM/30 ML UDCUP PO SCH (09:17)
[2020-08-26] MEDS: NICOTINE 14 MG/24 HR PATCH TRANSDERM SCH (09:18)
[2020-08-26] MEDS: MEGESTROL 40 MG TABLET PO SCH ×2 (09:18→16:47)
[2020-08-26] MEDS: POLYETHYLENE GLYCOL POWDER 17 GM PACK PO SCH ×2 (09:18→21:19)
[2020-08-26 09:33] LABS: Anisocytosis 1+; Band Neutrophils 12 % (0-10); Eosinophils 1 % (0-10); Lymphocytes 12 % (20-55); Platelet Estimate Adequate; Segmented Neutrophils 66 % (50-85); Total Cells Counted 100
[2020-08-26] MEDS: traMADol 50 MG TABLET PO PRN (21:19)
[2020-08-26] MEDS: OLANZapine 5 MG TABLET PO SCH (21:22)
[2020-08-27] MEDS: ALBUTEROL/IPRATROPIUM 3 ML NEB RESP TX SCH ×4 (01:47→19:54)
[2020-08-27] MEDS: NICOTINE 14 MG/24 HR PATCH TRANSDERM SCH (10:07)
[2020-08-27] MEDS: INSULIN REGULAR 100 UNIT/ML SUBCUT SCH ×4 (10:07→20:51)
[2020-08-27] MEDS: cloNIDine 0.1 MG TABLET PO SCH ×3 (10:08→20:51)
[2020-08-27] MEDS: ISOSORBIDE MONONITRATE 30 MG TABLET PO SCH (10:08)
[2020-08-27] MEDS: MAGNESIUM OXIDE 400 MG TABLET PO SCH (10:08)
[2020-08-27] MEDS: FERROUS SULFATE 325 MG TABLET PO SCH (10:08)
[2020-08-27] MEDS: METOCLOPRAMIDE 5 MG TABLET PO SCH ×3 (10:08→20:51)
[2020-08-27] MEDS: PANTOPRAZOLE 40 MG TABLET PO SCH (10:08)
[2020-08-27] MEDS: LORATADINE 10 MG TABLET PO SCH (10:09)
[2020-08-27] MEDS: LACTULOSE 20 GM/30 ML UDCUP PO SCH (10:10)
[2020-08-27] MEDS: ASPIRIN EC 325 MG TABLET PO SCH (10:10)
[2020-08-27] MEDS: MEGESTROL 40 MG TABLET PO SCH ×2 (10:10→17:23)
[2020-08-27] MEDS: allopurinoL 100 MG TABLET PO SCH (10:10)
[2020-08-27] MEDS: POLYETHYLENE GLYCOL POWDER 17 GM PACK PO SCH ×2 (10:11→20:51)
[2020-08-27 10:40] LABS: Calcium 8.4 MG/DL (8.5-10.1); Potassium 4.6 MMOL/L (3.5-5.1)
[2020-08-27] MEDS: ONDANSETRON 4 MG/2 ML VIAL IV PRN (11:46)
[2020-08-27] MEDS: OLANZapine 5 MG TABLET PO SCH (20:51)
[2020-08-28] MEDS: ALBUTEROL/IPRATROPIUM 3 ML NEB RESP TX SCH ×4 (01:38→20:19)
[2020-08-28 06:37] LABS: Basophils % 0.3 % (0.0-0.8); Eosinophils # 0.1 10*3/uL (0.0-0.87); Eosinophils % 0.9 % (0.00-10.9); Hematocrit 24.5 VOL% (35.7-47.0); Hemoglobin 7.8 GM/DL (12.0-16.0); Immature Granulocytes % 0.4 %; Immature Granulocytes Absolute 0.03 #; Lymphocytes # 0.8 10*3/uL (1.4-4.0); Lymphocytes % 10.5 % (21.3-54.2); Mean Corpuscular HGB Conc 31.8 GM/DL (32-36); Mean Corpuscular Volume 84.8 FL (87-102); Mean Platelet Volume 10.8 FL (9.6-12.0); Monocytes % 7.5 % (1.7-12.7); Neutrophils % 80.4 % (38.7-73.9); Platelet Count 119 T/CUMM (130-400); Red Blood Count 2.89 MC/CUMM (3.8-5.5); Red Cell Distribution Width 15.9 % (9.3-17.3); White Blood Count 7.4 T/CUMM (4-12)
[2020-08-28 07:10] LABS: Calcium 8.6 MG/DL (8.5-10.1); Osmolality,Calculated 287.1 MOS/KG (273-304); Potassium 4.9 MMOL/L (3.5-5.1)
[2020-08-28 07:21] LABS: Band Neutrophils 1 % (0-10); Hypochromasia 1+; Lymphocytes 11 % (20-55); Microcytosis 1+; Platelet Estimate Decreased; Segmented Neutrophils 83 % (50-85); Total Cells Counted 100
[2020-08-28] MEDS: INSULIN REGULAR 100 UNIT/ML SUBCUT SCH ×4 (08:03→22:24)
[2020-08-28] MEDS: cloNIDine 0.1 MG TABLET PO SCH ×3 (10:18→22:20)
[2020-08-28] MEDS: METOCLOPRAMIDE 5 MG TABLET PO SCH ×3 (10:18→22:20)
[2020-08-28] MEDS: LACTULOSE 20 GM/30 ML UDCUP PO SCH (10:18)
[2020-08-28] MEDS: POLYETHYLENE GLYCOL POWDER 17 GM PACK PO SCH ×2 (11:58→22:24)
[2020-08-28] MEDS: MEGESTROL 40 MG TABLET PO SCH ×2 (12:27→16:12)
[2020-08-28] MEDS: ONDANSETRON 4 MG/2 ML VIAL IV PRN (12:41)
[2020-08-28] MEDS: PANTOPRAZOLE 40 MG TABLET PO SCH (12:42)
[2020-08-28] MEDS: LORATADINE 10 MG TABLET PO SCH (12:42)
[2020-08-28] MEDS: allopurinoL 100 MG TABLET PO SCH (12:42)
[2020-08-28] MEDS: ISOSORBIDE MONONITRATE 30 MG TABLET PO SCH (12:42)
[2020-08-28] MEDS: MAGNESIUM OXIDE 400 MG TABLET PO SCH (12:42)
[2020-08-28] MEDS: ASPIRIN EC 325 MG TABLET PO SCH (12:42)
[2020-08-28] MEDS: FERROUS SULFATE 325 MG TABLET PO SCH (12:42)
[2020-08-28] MEDS: NICOTINE 14 MG/24 HR PATCH TRANSDERM SCH (12:45)
[2020-08-28] MEDS: OLANZapine 5 MG TABLET PO SCH (22:20)
[2020-08-29] MEDS: PROMETHAZINE 25 MG/1 ML VIAL IM PRN ×2 (01:36→17:09)
[2020-08-29] MEDS: ALBUTEROL/IPRATROPIUM 3 ML NEB RESP TX SCH ×4 (01:40→21:50)
[2020-08-29] MEDS: INSULIN REGULAR 100 UNIT/ML SUBCUT SCH ×4 (07:51→21:22)
[2020-08-29] MEDS: ISOSORBIDE MONONITRATE 30 MG TABLET PO SCH (08:26)
[2020-08-29] MEDS: allopurinoL 100 MG TABLET PO SCH (08:26)
[2020-08-29] MEDS: FERROUS SULFATE 325 MG TABLET PO SCH (08:26)
[2020-08-29] MEDS: MEGESTROL 40 MG TABLET PO SCH ×2 (08:26→16:25)
[2020-08-29] MEDS: LORATADINE 10 MG TABLET PO SCH (08:27)
[2020-08-29] MEDS: cloNIDine 0.1 MG TABLET PO SCH ×3 (08:27→21:18)
[2020-08-29] MEDS: METOCLOPRAMIDE 5 MG TABLET PO SCH ×3 (08:27→21:19)
[2020-08-29] MEDS: NICOTINE 14 MG/24 HR PATCH TRANSDERM SCH (08:27)
[2020-08-29] MEDS: MAGNESIUM OXIDE 400 MG TABLET PO SCH (08:27)
[2020-08-29] MEDS: ASPIRIN EC 325 MG TABLET PO SCH (08:27)
[2020-08-29] MEDS: PANTOPRAZOLE 40 MG TABLET PO SCH (08:27)
[2020-08-29] MEDS: LACTULOSE 20 GM/30 ML UDCUP PO SCH (08:28)
[2020-08-29] MEDS: POLYETHYLENE GLYCOL POWDER 17 GM PACK PO SCH ×2 (08:28→21:20)
[2020-08-29] MEDS: OLANZapine 5 MG TABLET PO SCH (21:19)
[2020-08-30] MEDS: PROMETHAZINE 25 MG/1 ML VIAL IM PRN (03:16)
[2020-08-30] MEDS: ALBUTEROL/IPRATROPIUM 3 ML NEB RESP TX SCH ×3 (03:19→12:34)
[2020-08-30 05:13] LABS: Basophils % 0.7 % (0.0-0.8); Eosinophils # 0.1 10*3/uL (0.0-0.87); Eosinophils % 4.3 % (0.00-10.9); Hematocrit 23.6 VOL% (35.7-47.0); Hemoglobin 7.5 GM/DL (12.0-16.0); Immature Granulocytes % 0.3 %; Immature Granulocytes Absolute 0.01 #; Lymphocytes # 0.8 10*3/uL (1.4-4.0); Lymphocytes % 27.2 % (21.3-54.2); Mean Corpuscular HGB Conc 31.8 GM/DL (32-36); Mean Corpuscular Volume 85.2 FL (87-102); Mean Platelet Volume 11.4 FL (9.6-12.0); Monocytes % 14.3 % (1.7-12.7); Neutrophils % 53.2 % (38.7-73.9); Platelet Count 132 T/CUMM (130-400); Red Blood Count 2.77 MC/CUMM (3.8-5.5); Red Cell Distribution Width 15.7 % (9.3-17.3)
[2020-08-30 05:39] LABS: Calcium 8.3 MG/DL (8.5-10.1); Eosinophils 5 % (0-10); Hypochromasia 1+; Lymphocytes 20 % (20-55); Microcytosis 1+; Osmolality,Calculated 283.8 MOS/KG (273-304); Platelet Estimate Normal; Potassium 4.4 MMOL/L (3.5-5.1); Segmented Neutrophils 62 % (50-85); Total Cells Counted 100
[2020-08-30 08:12] VITALS: BP 135/43
[2020-08-30] MEDS: INSULIN REGULAR 100 UNIT/ML SUBCUT SCH ×2 (08:13→14:53)
[2020-08-30] MEDS: METOCLOPRAMIDE 5 MG TABLET PO SCH ×2 (10:50→14:28)
[2020-08-30] MEDS: ONDANSETRON 4 MG/2 ML VIAL IV PRN (12:50)
[2020-08-30] MEDS: LACTULOSE 20 GM/30 ML UDCUP PO SCH (14:18)
[2020-08-30] MEDS: cloNIDine 0.1 MG TABLET PO SCH ×2 (14:18→16:27)
[2020-08-30] MEDS: MEGESTROL 40 MG TABLET PO SCH (14:44)
[2020-08-30] MEDS: LORATADINE 10 MG TABLET PO SCH (14:51)
[2020-08-30] MEDS: POLYETHYLENE GLYCOL POWDER 17 GM PACK PO SCH (14:51)
[2020-08-30] MEDS: ASPIRIN EC 325 MG TABLET PO SCH (14:51)
[2020-08-30] MEDS: MAGNESIUM OXIDE 400 MG TABLET PO SCH (14:51)
[2020-08-30] MEDS: FERROUS SULFATE 325 MG TABLET PO SCH (14:51)
[2020-08-30] MEDS: ISOSORBIDE MONONITRATE 30 MG TABLET PO SCH (14:51)
[2020-08-30] MEDS: PANTOPRAZOLE 40 MG TABLET PO SCH (14:52)
[2020-08-30] MEDS: NICOTINE 14 MG/24 HR PATCH TRANSDERM SCH (14:52)
[2020-08-30] MEDS: allopurinoL 100 MG TABLET PO SCH (14:53)
== END 2020-08-30 18:40 | DRG 280 ==
LOC: N.ED 11:44 → N.EDINP 11:44 → N.TELES 22:11
PROVIDERS: ADMIT Internal Medicine; ATTEND Internal Medicine